=== PATIENT | male | born 1935 | race Caucasian/White ===

== ENCOUNTER 2017-09-20 09:20 | Inpatient (IN) | payer MEDICARE ==
--- NOTE | 2017-09-20 09:52 | EDM.PDOC ---
ED HPI GENERAL MEDICAL PROBLEM - General Chief Complaint: General Stated Complaint: MEDICAL [facility] Time Seen by Provider: 09/20/17 09:35 Source of Information: Reports: Family, Old Records, RN History Limitations: Reports: Other (patient with dementia) - History of Present Illness INITIAL COMMENTS - FREE TEXT/NARRATIVE: 81 [facility] patient who is a resident of a local assisted living facility is sent in today via EMS by his son for weakness and lethargy getting worse over the past week or so. This patient has not complained of anything, but has spent a lot of time sleeping and in bed. EMS noted a BS of about 200 this morning and as of June 2017 [facility] records document normal blood sugars. Other labs including BMP, Hgb, TSH also normal this past June. Specifically denies CP or SOB. Cannot tell me if the R leg swelling is new or not. Onset: Gradual Onset Date: 09/14/17 Duration: Day(s):, Getting Worse Location: Reports: Generalized Quality: Reports: Other (No reported pain.) Severity: Moderate Improves with: Reports: None Worsens with: Reports: Other (? time, cause unknown) Context: Reports: Other (Has dementia, assisted living resident) Associated Symptoms: Reports: Confusion (This is chronic), Malaise, Weakness. Denies: Fever/Chills, Nausea/Vomiting Treatments [employer]: Reports: IV/IO, Other (see below) (none) Other Treatments [employer] PUBL[employer]ING [employer]: GLUCOSE 284 PER EMS - Related Data Allergies Allergy/AdvReac Type Severity Reaction Status Date / Time No Known Allergies Allergy Verified 09/20/17 09:31 Home Meds: Home Meds Aspirin [Adult Low Dose Aspirin EC] 81 mg PO DAILY 06/13/15 [History] Cholecalciferol (Vitamin D3) [Vitamin D3] 2,000 units PO DAILY 06/13/15 [History ] Docusate Sodium/Sennosides [Senna Plus] 1 tab PO BID 06/13/15 [History] Escitalopram [Lexapro] 20 mg PO DAILY 06/13/15 [History] Losartan [Cozaar] 50 mg PO DAILY 06/13/15 [History] Nitroglycerin [Nitrostat] 1 tab PO ASDIRECTED PRN 06/13/15 [History] Omeprazole 20 mg PO DAILY 06/13/15 [History] Psyllium [Metamucil] 1 tab PO DAILY 06/13/15 [History] Simvastatin [Zocor] 40 mg PO BEDTIME 06/13/15 [History] Sodium Chloride [Saline Nasal [place]] 2 spray MARY QID PRN 06/13/15 [History] risperiDONE 0.5 mg PO BEDTIME 06/13/15 [History] Levofloxacin 750 mg PO DAILY #3 tablet 06/15/15 [Rx] Past Medical History HEENT History: Reports: Hard of Hearing Musculoskeletal History: Reports: Back Pain, Chronic Psychiatric History: Reports: Dementia, Depression Dermatologic History: Reports: Other (See Below) Other Dermatologic History: Dry skin - Infectious Disease History Infectious Disease History: Reports: Chicken Pox, Measles, Mumps - Past Surgical History HEENT Surgical History: Reports: Cataract Surgery Social & Family History - Family History Cardiac: Reports: CAD - Tobacco Use Smoking Status *Q: Unknown Ever Smoked Second Hand Smoke Exposure: No - Recreational Drug Use Recreational Drug Use: No ED ROS GENERAL - Review of Systems Review Of Systems: See Below Constitutional: Reports: Malaise, Weakness, Fatigue HEENT: Reports: No Symptoms Respiratory: Reports: Cough (occasional). Denies: Shortness of Breath, Wheezing , Sputum, Hemoptysis Cardiovascular: Reports: No Symptoms Endocrine: Reports: Fatigue GI/Abdominal: Reports: No Symptoms : Reports: No Symptoms Musculoskeletal: Reports: No Symptoms Skin: Reports: No Symptoms Neurological: Reports: Other (dementia, chronic) Psychiatric: Reports: Other (Flat affect here in the ER) ED EXAM, GENERAL - Physical Exam Exam: See Below Exam Limited By: No Limitations General Appearance: Alert, WD/WN, No Apparent Distress Eye Exam: Bilateral Eye: Normal Inspection Ears: Normal External Exam, Normal Canal, Other (Bilateral cerumen impactions) Ear Exam: Bilateral Ear: Auricle Normal, Canal Normal Nose: Normal Inspection, Normal Mucosa, No Blood Throat/Mouth: Normal Inspection, Normal Lips, Normal Oropharynx, Normal Voice, No Airway Compromise Head: Atraumatic, Normocephalic Neck: Normal Inspection Respiratory/Chest: No Respiratory Distress, Lungs Clear, Normal Breath Sounds, No Accessory Muscle Use Cardiovascular: Regular Rate, Rhythm, No Edema Peripheral Pulses: 0: Dorsalis Pedis (L) GI/Abdominal: Normal Bowel Sounds, Soft, Non-Tender, No Distention Extremities: Normal Inspection, Normal Range of Motion, Non-Tender, Pedal Edema (R leg is slightly bigger than the L leg, seems non-tender and is not warmer than the other leg. ) Neurological: Alert, CN II-XII Intact, No Motor/Sensory Deficits, Other (non- verbal during encounter, son did all the talking) Psychiatric: Normal Affect, Normal Mood Skin Exam: Warm, Dry, Normal Color, No Rash, Wound/Incision (deep abrasion noted over the R knee cap, no surrounding erythema.) Lymphatic: No Adenopathy EKG INTERPRETATION EKG Date: 09/20/17 Time: 10:25 Rhythm: NSR Rate (Beats/Min): 80 [place]: Normal P-Wave: Present QRS: Normal QT: Normal Comparison: NA - No Prior EKG EKG Interpretation Comments: LVH noted. No def'n acute ischemia. Course - Vital Signs Last Recorded V/S: Last Vital Signs Temp 36.2 C 09/20/17 12:54 Pulse 77 09/20/17 12:54 Resp 17 09/20/17 12:54 BP 151/73 H 09/20/17 12:54 Pulse Ox 95 09/20/17 12:54 - Orders/Labs/Meds Orders: Active Orders 24 hr Category Date Time Status Cardiac Monitoring [RC] .As Directed Care 09/20/17 10:22 Active EKG Documentation Completion [RC] ASDIRECTED Care 09/20/17 10:23 Active Vaccines to be Administered [RC] PER UNIT ROUTINE Care 09/20/17 10:31 Active Ang Chest [CT] Stat Exams 09/20/17 10:44 Taken Chest 1V Frontal [CR] Stat Exams 09/20/17 10:24 Taken VL Duplex Lwr Ext Veins Ltd Rt [US] Stat Exams 09/20/17 12:05 Ordered UA W/MICROSCOPIC [URIN] Stat Lab 09/20/17 10:12 Ordered Iopamidol [Isovue-370 (76%)] Med 09/20/17 11:00 Active 100 ml IV . DIRECTED Lactated Ringers [Ringers, Lactated] 1,000 ml Med 09/20/17 12:32 Active IV BOLUS EKG 12 Lead [EK] Routine Ther 09/20/17 10:22 Ordered Medication Orders Lactated Ringer's (Ringers, Lactated) 1,000 mls @ 1,000 mls/hr IV BOLUS ONE Stop: 09/20/17 13:31 Last Admin: 09/20/17 12:40 Dose: 1,000 mls/hr Iopamidol (Isovue-370 (76%)) 100 ml IV . DIRECTED BONITA Stop: 09/20/17 16:00 Last Admin: 09/20/17 11:29 Dose: 100 ml Labs: Laboratory Tests 09/20/17 09/20/17 09/20/17 Range/Units 09:54 09:54 10:11 WBC 16.7 H (4.5-11.0) K/uL RBC 4.97 (4.30-5.90) M/uL Hgb 13.7 (12.0-15.0) g/dL Hct 40.9 (40.0-54.0) % MCV 82 (80-98) fL MCH 28 (27-31) pg MCHC 34 (32-36) % Plt Count 215 (150-400) K/uL D-Dimer, Quantitative 1200 H (0.0-400.0) ng/mL Sodium 138 L (140-148) mmol/L Potassium 4.9 (3.6-5.2) mmol/L Chloride 102 (100-108) mmol/L Carbon Dioxide 26 (21-32) mmol/L Anion Gap 14.9 H (5.0-14.0) mmol/L BUN 24 H D (7-18) mg/dL Creatinine 1.3 (0.8-1.3) mg/dL Est Cr Clr Drug Dosing 45.86 mL/min Estimated GFR (MDRD) 53 L (>60) Glucose 200 H (74-106) mg/dL Calcium 8.9 (8.5-10.1) mg/dL Troponin I 0.151 H* (0.000-0.056) ng/mL Urine Color Urine Appearance Urine pH (4.5-8.0) Ur Specific [place] (1.008-1.030) Urine Protein (NEGATIVE) mg/dL Urine Glucose (UA) (NEGATIVE) mg/dL Urine Ketones (NEGATIVE) mg/dL Urine Occult Blood (NEGATIVE) Urine Nitrite (NEGAITVE) Urine Bilirubin (NEGATIVE) Urine Urobilinogen (NORMAL) mg/dL Ur Leukocyte Esterase (NEGATIVE) Urine RBC (0-5) Urine WBC (0-5) Ur Epithelial Cells Amorphous Sediment Urine Bacteria Urine Mucus 09/20/17 Range/Units 10:12 WBC (4.5-11.0) K/uL RBC (4.30-5.90) M/uL Hgb (12.0-15.0) g/dL Hct (40.0-54.0) % MCV (80-98) fL MCH (27-31) pg MCHC (32-36) % Plt Count (150-400) K/uL D-Dimer, Quantitative (0.0-400.0) ng/mL Sodium (140-148) mmol/L Potassium (3.6-5.2) mmol/L Chloride (100-108) mmol/L Carbon Dioxide (21-32) mmol/L Anion Gap (5.0-14.0) mmol/L BUN (7-18) mg/dL Creatinine (0.8-1.3) mg/dL Est Cr Clr Drug Dosing mL/min Estimated GFR (MDRD) (>60) Glucose (74-106) mg/dL Calcium (8.5-10.1) mg/dL Troponin I (0.000-0.056) ng/mL Urine Color Brown Urine Appearance Cloudy Urine pH 5.0 (4.5-8.0) Ur Specific [place] 1.025 (1.008-1.030) Urine Protein 30 H (NEGATIVE) mg/dL Urine Glucose (UA) 50 H (NEGATIVE) mg/dL Urine Ketones 50 H (NEGATIVE) mg/dL Urine Occult Blood Large (NEGATIVE) Urine Nitrite Negative (NEGAITVE) Urine Bilirubin Small (NEGATIVE) Urine Urobilinogen 1 (NORMAL) mg/dL Ur Leukocyte Esterase Small (NEGATIVE) Urine RBC 0-5 (0-5) Urine WBC 0-5 (0-5) Ur Epithelial Cells Few Amorphous Sediment Moderate Urine Bacteria Moderate Urine Mucus Many Meds: Medications Generic Name Dose Route Start Last Admin Trade Name Freq PRN Reason Stop Dose Admin Lactated Ringer's 1,000 mls @ 1,000 mls/hr 09/20/17 12:32 09/20/17 12:40 Ringers, Lactated IV 09/20/17 13:31 1,000 mls/hr BOLUS ONE Administration Iopamidol 100 ml 09/20/17 11:00 09/20/17 11:29 Isovue-370 (76%) IV 09/20/17 16:00 100 ml . DIRECTED BONITA Administration Discontinued Medications Generic Name Dose Route Start Last Admin Trade Name Pau PRN Reason Stop Dose Admin Aspirin 243 mg 09/20/17 10:23 09/20/17 10:30 Aspirin PO 09/20/17 10:24 243 mg ONETIME ONE Administration Diphtheria/Tetanus/Acell Pertussis 0.5 ml 09/20/17 10:31 09/20/17 10:47 Adacel IM 09/20/17 10:32 0.5 ml .ONCE ONE Administration Lactated Ringer's 1,000 mls @ 1,000 mls/hr 09/20/17 10:12 09/20/17 10:27 Ringers, Lactated IV 09/20/17 11:11 1,000 mls/hr BOLUS ONE Administration Sodium Chloride 80 mls @ 3.5 mls/sec 09/20/17 10:49 09/20/17 11:29 Normal Saline IV 09/20/17 10:50 4 mls/sec ONETIME ONE Administration Sodium Chloride 10 ml 09/20/17 10:49 09/20/17 11:29 Saline Flush FLUSH 09/20/17 10:50 10 ml ONETIME ONE Administration - Radiology Interpretation Free Text/Narrative:: CXR-negative, no failure noted. CT chest PE study-neg venous doppler of R leg-negative for DVT CT Results Date: 09/20/17 CT Results Time: 11:30 Departure - Departure Time of Disposition: 13:40 Disposition: Admitted As Inpatient 64 Condition: Fair Clinical Impression: Recent heart attack, Mild dehydration, Weakness, Elevated blood sugar Dementia Qualifiers: Dementia type: Alzheimer's disease Alzheimer's disease onset: late-onset Dementia behavioral disturbance: without behavioral disturbance Qualified Code(s ): G30.1 - Alzheimer's disease with late onset - Discharge Information Referrals: PCP,None [Primary Care Provider] - Forms: ED Department Discharge - My Orders Last 24 Hours: My Active Orders 09/20/17 10:12 UA W/MICROSCOPIC [URIN] Stat 09/20/17 10:22 Cardiac Monitoring [RC] .As Directed EKG 12 Lead [EK] Routine 09/20/17 10:23 EKG Documentation Completion [RC] ASDIRECTED 09/20/17 10:24 Chest 1V Frontal [CR] Stat 09/20/17 10:31 Vaccines to be Administered [RC] PER UNIT ROUTINE 09/20/17 10:44 Ang Chest [CT] Stat 09/20/17 11:00 Iopamidol [Isovue-370 (76%)] 100 ml IV . DIRECTED 09/20/17 12:05 Duplex Lwr Ext Veins Ltd Rt [US] Stat 09/20/17 12:32 Lactated Ringers [Ringers, Lactated] 1,000 ml IV BOLUS - Assessment/Plan Last 24 Hours: My Active Orders 09/20/17 10:12 UA W/MICROSCOPIC [URIN] Stat 09/20/17 10:22 Cardiac Monitoring [RC] .As Directed EKG 12 Lead [EK] Routine 09/20/17 10:23 EKG Documentation Completion [RC] ASDIRECTED 09/20/17 10:24 Chest 1V Frontal [CR] Stat 09/20/17 10:31 Vaccines to be Administered [RC] PER UNIT ROUTINE 09/20/17 10:44 Ang Chest [CT] Stat 09/20/17 11:00 Iopamidol [Isovue-370 (76%)] 100 ml IV . DIRECTED 09/20/17 12:05 Duplex Lwr Ext Veins Ltd Rt [US] Stat 09/20/17 12:32 Lactated Ringers [Ringers, Lactated] 1,000 ml IV BOLUS
[2017-09-20] MEDS ORDERED: Lactated Ringers 1,000 ML IV ONE ×2 (10:12→12:32)
[2017-09-20] MEDS ORDERED: Aspirin 81 MG Tab.Chew PO ONE (10:23)
[2017-09-20] MEDS ORDERED: Diphtheria,Pertussis(Acell),Tetanus Vaccine 0.5 ML SDV IM ONE (10:31)
[2017-09-20] MEDS ORDERED: Sodium Chloride 0.9% 10 ML Syringe FLUSH ONE (10:49)
[2017-09-20] MEDS ORDERED: Sodium Chloride 0.9% 80 ML IV ONE (10:49)
[2017-09-20] MEDS ORDERED: Iopamidol 755 Mg/ML 100 ML Bottle IV SCH (11:00)
--- NOTE | 2017-09-20 14:24 | PCM.HP ---
H&P History of Present Illness - General Date of Service: 09/20/17 Admit Problem/Dx: Admission Diagnosis/Problem Admission Diagnosis/Problem Elevated troponin I level Source of Information: Patient, Family, Provider History Limitations: Reports: Altered Mental Status (dementia) - History of Present Illness Initial Comments - Free Text/Narative: Jared presents to the ER after being found on the floor of his assisted living apartment. He has dementia and history is somewhat difficult to gather so history was gathered from his son as well as emergency room personnel. Jared reports that he currently feels fine and offers no concerns. He does not have chest pain and does not feel shortness of breath. No complaints of abdominal pain. He doesn't think he's had any fevers recently. His son reports that he and other caregivers have noticed that he the patient has been more sleepy than usual over the past several days. They have not noted anything out of the ordinary other than him being sleepy. He has not offered specific complaints to them recently and they have noticed that he seems to be having increased urine output with more wet incontinence pads. They haven't noticed change in color or odor of the urine. He is not on new medications. There are no obvious sick contacts. This morning he was found laying on the floor next to his bed area and he has no idea how he got there or how long he's been there. Workup in the emergency room revealed an elevated troponin and an elevated d- dimer. CT pulmonary angiogram did not show evidence for pulmonary embolism and lower extremity ultrasound was negative. Urine mildly suggestive of infection. The patient appears dehydrated. He will be admitted for additional workup and management. - Related Data Allergies/Adverse Reactions: Allergies Allergy/AdvReac Type Severity Reaction Status Date / Time No Known Allergies Allergy Verified 09/20/17 09:31 Home Medications: Home Meds Aspirin [Adult Low Dose Aspirin EC] 81 mg PO DAILY 06/13/15 [History] Cholecalciferol (Vitamin D3) [Vitamin D3] 1,000 units PO DAILY 06/13/15 [History ] Docusate Sodium/Sennosides [Senna Plus] 1 tab PO BID 06/13/15 [History] Escitalopram [Lexapro] 20 mg PO DAILY 06/13/15 [History] Losartan [Cozaar] 50 mg PO DAILY 06/13/15 [History] Nitroglycerin [Nitrostat] 1 tab PO ASDIRECTED PRN 06/13/15 [History] Omeprazole 20 mg PO DAILY 06/13/15 [History] Simvastatin [Zocor] 40 mg PO BEDTIME 06/13/15 [History] risperiDONE 0.5 mg PO BEDTIME 06/13/15 [History] Acetaminophen [Tylenol] 2 tab PO ASDIRECTED PRN 09/20/17 [History] Acetaminophen/Codeine [Tylenol with Codeine No.3 300MG/30MG] 1 tab PO ASDIRECTED PRN 09/20/17 [History] Furosemide 20 mg PO DAILY 09/20/17 [History] Memantine [Namenda] 5 mg PO BID 09/20/17 [History] Past Medical History HEENT History: Reports: Hard of Hearing Musculoskeletal History: Reports: Back Pain, Chronic Psychiatric History: Reports: Dementia, Depression Dermatologic History: Reports: Other (See Below) Other Dermatologic History: Dry skin - Infectious Disease History Infectious Disease History: Reports: Chicken Pox, Measles, Mumps - Past Surgical History HEENT Surgical History: Reports: Cataract Surgery Social & Family History - Family History Cardiac: Reports: CAD - Tobacco Use Smoking Status *Q: Unknown Ever Smoked Second Hand Smoke Exposure: No - Alcohol Use Alcohol Use History: No - Recreational Drug Use Recreational Drug Use: No H&P Review of Systems - Review of Systems: Review Of Systems: See Below Free Text/Narrative: A complete 12 point review of systems was obtained. Pertinent positives and negatives are noted in the history of present illness. All other systems were reviewed and were negative except as noted. Reliability of the review of systems is somewhat questionable given his dementia but all systems were covered. Exam - Exam Exam: See Below - Vital Signs Vital Signs: Last Vital Signs Temp 36.2 C 09/20/17 12:54 Pulse 77 09/20/17 12:54 Resp 17 09/20/17 12:54 BP 151/73 H 09/20/17 12:54 Pulse Ox 95 09/20/17 12:54 Weight: 115.666 kg - Exam Quality Assessment: No: Supplemental Oxygen General: Alert, Oriented, Cooperative. No: Mild Distress HEENT: Conjunctiva Clear. No: Mucosa Moist & [place] (dry), Scleral Icterus Neck: Supple, Trachea Midline. No: Lymphadenopathy Lungs: Clear to Auscultation, Normal Respiratory Effort Cardiovascular: Regular Rate, Regular Rhythm, Systolic Murmur GI/Abdominal Exam: Normal Bowel Sounds, Soft, Non-Tender, No Distention Extremities: Pedal Edema (Mild bilateral ankle edema, right greater than left). No: Increased Warmth Skin: Warm, Dry Neuro Extensive - Mental Status: Alert, Nl Response to Commands. No: Oriented x3 Neuro Extensive - Motor, Sensory, Reflexes: CN II-XII Intact. No: Dysarthria, Abnormal Motor, Tremor Psychiatric: Alert, Normal Affect - Patient Data Lab Results Last 24 hrs: Laboratory Results - last 24 hr 09/20/17 09/20/17 09/20/17 Range/Units 09:54 09:54 10:11 WBC 16.7 H (4.5-11.0) K/uL RBC 4.97 (4.30-5.90) M/uL Hgb 13.7 (12.0-15.0) g/dL Hct 40.9 (40.0-54.0) % MCV 82 (80-98) fL MCH 28 (27-31) pg MCHC 34 (32-36) % Plt Count 215 (150-400) K/uL D-Dimer, Quantitative 1200 H (0.0-400.0) ng/mL Sodium 138 L (140-148) mmol/L Potassium 4.9 (3.6-5.2) mmol/L Chloride 102 (100-108) mmol/L Carbon Dioxide 26 (21-32) mmol/L Anion Gap 14.9 H (5.0-14.0) mmol/L BUN 24 H D (7-18) mg/dL Creatinine 1.3 (0.8-1.3) mg/dL Est Cr Clr Drug Dosing 45.86 mL/min Estimated GFR (MDRD) 53 L (>60) Glucose 200 H (74-106) mg/dL Calcium 8.9 (8.5-10.1) mg/dL Troponin I 0.151 H* (0.000-0.056) ng/mL Urine Color Urine Appearance Urine pH (4.5-8.0) Ur Specific [place] (1.008-1.030) Urine Protein (NEGATIVE) mg/dL Urine Glucose (UA) (NEGATIVE) mg/dL Urine Ketones (NEGATIVE) mg/dL Urine Occult Blood (NEGATIVE) Urine Nitrite (NEGAITVE) Urine Bilirubin (NEGATIVE) Urine Urobilinogen (NORMAL) mg/dL Ur Leukocyte Esterase (NEGATIVE) Urine RBC (0-5) Urine WBC (0-5) Ur Epithelial Cells Amorphous Sediment Urine Bacteria Urine Mucus 09/20/17 Range/Units 10:12 WBC (4.5-11.0) K/uL RBC (4.30-5.90) M/uL Hgb (12.0-15.0) g/dL Hct (40.0-54.0) % MCV (80-98) fL MCH (27-31) pg MCHC (32-36) % Plt Count (150-400) K/uL D-Dimer, Quantitative (0.0-400.0) ng/mL Sodium (140-148) mmol/L Potassium (3.6-5.2) mmol/L Chloride (100-108) mmol/L Carbon Dioxide (21-32) mmol/L Anion Gap (5.0-14.0) mmol/L BUN (7-18) mg/dL Creatinine (0.8-1.3) mg/dL Est Cr Clr Drug Dosing mL/min Estimated GFR (MDRD) (>60) Glucose (74-106) mg/dL Calcium (8.5-10.1) mg/dL Troponin I (0.000-0.056) ng/mL Urine Color Brown Urine Appearance Cloudy Urine pH 5.0 (4.5-8.0) Ur Specific [place] 1.025 (1.008-1.030) Urine Protein 30 H (NEGATIVE) mg/dL Urine Glucose (UA) 50 H (NEGATIVE) mg/dL Urine Ketones 50 H (NEGATIVE) mg/dL Urine Occult Blood Large (NEGATIVE) Urine Nitrite Negative (NEGAITVE) Urine Bilirubin Small (NEGATIVE) Urine Urobilinogen 1 (NORMAL) mg/dL Ur Leukocyte Esterase Small (NEGATIVE) Urine RBC 0-5 (0-5) Urine WBC 0-5 (0-5) Ur Epithelial Cells Few Amorphous Sediment Moderate Urine Bacteria Moderate Urine Mucus Many Result Diagrams: 09/20/17 09:54 09/20/17 09:54 Imaging Impressions Last 24 hrs: Chest x-ray - images personally reviewed - there is no evidence for mass, infiltrate or effusion. Heart size is normal. CT pulmonary angiogram - images also personally reviewed - no evidence for pulmonary embolism, effusion, mass or abnormality. EKG INTERPRETATION EKG Date: 09/20/17 Rhythm: NSR Rate (Beats/Min): 80 [place]: Normal P-Wave: Present QRS: Normal ST-T: Normal QT: Normal *Q Meaningful Use (ADM) - VTE Risk Assess *Q Each Risk Factor Represents 1 Point: Swollen Legs, Current, Obesity ( BMI > 25 kg/m2) Total Score 1 Point Risk Factors: 2 Each Risk Factor Represents 2 Points: None Total Score 2 Point Risk Factors: 0 Each Risk Factor Represents 3 Points: Age 75 Years or Greater Total Score 3 Point Risk Factors: 3 Each Risk Factor Represents 5 Points: None Total Score 5 Point Risk Factors: 0 Venous Thromboembolism Risk Factor Score *Q: 5 - Problem List (1) Elevated troponin SNOMED Code(s): 291832302, 278257504, 603849621 ICD Code: R74.8 - ABNORMAL LEVELS OF OTHER SERUM ENZYMES Status: Acute Current Visit: Yes (2) Fall SNOMED Code(s): 7644229, 524627655 ICD Code: W19.XXXA - UNSPECIFIED FALL, INITIAL ENCOUNTER Status: Acute Current Visit: No Qualifiers: Encounter type: initial encounter Qualified Code(s): W19.XXXA - Unspecified fall, initial encounter (3) Elevated blood sugar SNOMED Code(s): 21172120 ICD Code: R73.9 - HYPERGLYCEMIA, UNSPECIFIED Status: Acute Current Visit : Yes (4) Dementia SNOMED Code(s): 54874101 ICD Code: F03.90 - UNSPECIFIED DEMENTIA WITHOUT BEHAVIORAL DISTURBANCE Status: Chronic Current Visit: Yes Qualifiers: Dementia type: Alzheimer's disease Alzheimer's disease onset: late-onset Dementia behavioral disturbance: without behavioral disturbance Qualified Code (s): G30.1 - Alzheimer's disease with late onset; F02.80 - Dementia in other diseases classified elsewhere without behavioral disturbance Problem List Initiated/Reviewed/Updated: Yes Orders Last 24hrs: Active Orders 24 hr Category Date Time Status Patient Status Manage Transfer [TRANSFER] Routine ADT 09/20/17 14:11 Ordered Cardiac Monitoring [RC] .As Directed Care 09/20/17 10:22 Active EKG Documentation Completion [RC] ASDIRECTED Care 09/20/17 10:23 Active Vaccines to be Administered [RC] PER UNIT ROUTINE Care 09/20/17 10:31 Active Ang Chest [CT] Stat Exams 09/20/17 10:44 Taken Chest 1V Frontal [CR] Stat Exams 09/20/17 10:24 Taken VL Duplex Lwr Ext Veins Ltd Rt [US] Stat Exams 09/20/17 12:05 Taken CREATINE KINASE,CK [CHEM] Urgent Lab 09/20/17 14:11 Ordered CULTURE URINE [RM] Routine Lab 09/20/17 13:41 Received UA W/MICROSCOPIC [URIN] Stat Lab 09/20/17 10:12 Ordered Iopamidol [Isovue-370 (76%)] Med 09/20/17 11:00 Active 100 ml IV . DIRECTED Resuscitation Status Routine Resus Stat 09/20/17 14:14 Ordered EKG 12 Lead [EK] Routine Ther 09/20/17 10:22 Ordered Medication Orders Iopamidol (Isovue-370 (76%)) 100 ml IV . DIRECTED BONITA Stop: 09/20/17 16:00 Last Admin: 09/20/17 11:29 Dose: 100 ml Assessment/Plan Comment:: ASSESSMENT AND PLAN - Fall with generalized weakness - etiology not entirely clear at this point. With the elevated troponin and he may have had a recent myocardial infarction but EKG does not confirm this. Urinary tract infection with dehydration could be contributing. Seems to be perking up with fluids. Vitals are stable. -IV fluids overnight -Fall precautions -Reassess mobility and strength in the morning Elevated troponin - Mild elevation at this time with EKG not suggestive of ischemia. Unclear if this is demand ischemia or if the troponin is trending up or down. Patient is vitally stable. He did receive aspirin in the emergency room. -Serial troponin levels -Cardiac monitoring -Continue aspirin Hyperglycemia - Moderate elevation of blood sugars noted today. Likely result of acute issue which could either be a urinary tract infection or possibly myocardial infarction. No history of diabetes. -Accu-Cheks -Low-dose sliding scale Alzheimer's dementia without behavioral disturbance - Stable and comfortable at this time. No behavior issues reported. -Continue home medications Maintenance issues - - DVT prophylaxis - mechanical - GI prophylaxis - PPI - Nutrition - regular diet - Blanca catheter - not indicated CODE STATUS - DNR/DNI Admission justification - This patient will be admitted for inpatient services and is medically appropriate meeting medical necessity for inpatient admission as outlined in my documentation. I reasonably expect the patient will require inpatient services that span a period time over 2 midnights. I reasonably expect this patient to be discharged or transferred within 96 hours [facility]. Disposition - anticipate discharge back to assisted living after the hospital stay Primary care physician - [place] JOSE Zepeda M.D.
[2017-09-20] MEDS ORDERED: Bisacodyl 5 MG Tab PO PRN (14:56)
[2017-09-20] MEDS ORDERED: Acetaminophen/Codeine 300-30 MG Tab PO PRN (14:56)
[2017-09-20] MEDS ORDERED: Acetaminophen 325 MG Tab PO PRN (14:56)
[2017-09-20] MEDS ORDERED: Polyethylene Glycol 3350 Powder 17 GM Packet PO PRN (14:56)
[2017-09-20] MEDS ORDERED: Ondansetron 4 MG Tab.DIS PO PRN (14:56)
[2017-09-20] MEDS: Sodium Chloride 0.9% 1,000 ML IV SCH (15:32)
[2017-09-20] MEDS: cefTRIAXone 1 GM in Sodium Chloride 0.9% 50 ML IV SCH (15:44)
[2017-09-20] MEDS ORDERED: Sodium Chloride 0.9% 500 ML IV SCH (16:00)
[2017-09-20] MEDS: Insulin Aspart 100 Units/ML 3 ML Pen SUBCUT SCH ×2 (17:42→21:12)
[2017-09-20] MEDS: Melatonin 3 MG Tab PO SCH (20:42)
[2017-09-20] MEDS: risperiDONE 0.25 MG Tab PO SCH (20:42)
[2017-09-20] MEDS: Simvastatin 20 MG Tab PO SCH (20:42)
[2017-09-20] MEDS: Memantine 10 MG Tab PO SCH (20:42)
[2017-09-20] MEDS ORDERED: Non-Formulary Medication 1 Each (Simvastatin [Zocor] 40 MG) PO SCH (21:00)
[2017-09-20] MEDS ORDERED: risperiDONE 0.5 MG Tab PO SCH (21:00)
[2017-09-20] MEDS ORDERED: MEMANTINE 5 MG PO SCH (21:00)
[2017-09-21] MEDS: Sodium Chloride 0.9% 1,000 ML IV SCH ×3 (00:11→19:25)
[2017-09-21] MEDS ORDERED: Sodium Chloride 0.9% 500 ML IV SCH (08:00)
[2017-09-21] MEDS: Escitalopram 20 MG Tab PO SCH (08:57)
[2017-09-21] MEDS: Pantoprazole 40 MG Tab.CR PO SCH (08:57)
[2017-09-21] MEDS: Losartan 50 MG Tab PO SCH (08:57)
[2017-09-21] MEDS: Aspirin 81 MG Tab.EC PO SCH (08:57)
[2017-09-21] MEDS: Memantine 10 MG Tab PO SCH ×2 (08:58→20:11)
[2017-09-21] MEDS: Insulin Aspart 100 Units/ML 3 ML Pen SUBCUT SCH ×4 (08:58→21:13)
[2017-09-21] MEDS: Furosemide 20 MG Tab PO SCH (08:58)
[2017-09-21] MEDS ORDERED: Non-Formulary Medication 1 Each (Losartan [Cozaar] 50 MG) PO SCH (09:00)
--- NOTE | 2017-09-21 10:58 | PCM.PN ---
- General Info Date of Service: 09/21/17 Functional Status: Reports: Pain Controlled, Tolerating Diet - Review of Systems General: Reports: Weakness. Denies: Fever Systems Review Comment:: No acute events overnight. Troponin level did rise slightly and is now trending down. Patient has been stable. He is more alert today. Appetite is improving. He does require the assist of 2 people at this time. He has not complained of any chest pain. He does have some back pain and has a bruise on his back and this is likely the location of his rhabdomyolysis. - Patient Data Vitals - Most Recent: Last Vital Signs Temp 36.9 C 09/21/17 07:00 Pulse 63 09/21/17 07:00 Resp 18 09/21/17 07:00 BP 143/59 H 09/21/17 08:57 Pulse Ox 96 09/21/17 07:00 Weight - Most Recent: 115.666 kg I&O - Last 24 Hours: Intake & Output 09/20/17 09/21/17 09/21/17 22:59 06:59 14:59 Intake Total 820 1768 Output Total 125 300 Balance 695 1468 Lab Results Last 24 Hours: Laboratory Results - last 24 hr 09/20/17 09/20/17 09/20/17 Range/Units 14:11 15:00 21:04 WBC (4.5-11.0) K/uL RBC (4.30-5.90) M/uL Hgb (12.0-15.0) g/dL Hct (40.0-54.0) % MCV (80-98) fL MCH (27-31) pg MCHC (32-36) % Plt Count (150-400) K/uL Sodium (140-148) mmol/L Potassium (3.6-5.2) mmol/L Chloride (100-108) mmol/L Carbon Dioxide (21-32) mmol/L Anion Gap (5.0-14.0) mmol/L BUN (7-18) mg/dL Creatinine (0.8-1.3) mg/dL Est Cr Clr Drug Dosing mL/min Estimated GFR (MDRD) (>60) Glucose (74-106) mg/dL Calcium (8.5-10.1) mg/dL Creatine Kinase 3703 H (39-308) U/L Troponin I 0.380 H* 0.436 H* (0.000-0.056) ng/mL 09/21/17 09/21/17 Range/Units 05:30 05:30 WBC 11.9 H (4.5-11.0) K/uL RBC 4.34 (4.30-5.90) M/uL Hgb 12.0 (12.0-15.0) g/dL Hct 36.9 L (40.0-54.0) % MCV 85 (80-98) fL MCH 28 (27-31) pg MCHC 33 (32-36) % Plt Count 177 (150-400) K/uL Sodium 141 (140-148) mmol/L Potassium 4.1 (3.6-5.2) mmol/L Chloride 108 (100-108) mmol/L Carbon Dioxide 27 (21-32) mmol/L Anion Gap 6.3 (5.0-14.0) mmol/L BUN 19 H (7-18) mg/dL Creatinine 1.1 (0.8-1.3) mg/dL Est Cr Clr Drug Dosing 54.19 mL/min Estimated GFR (MDRD) > 60 (>60) Glucose 120 H (74-106) mg/dL Calcium 7.9 L (8.5-10.1) mg/dL Creatine Kinase 25508 H (39-308) U/L Troponin I 0.306 H* (0.000-0.056) ng/mL Med Orders - Current: Current Medications Acetaminophen (Tylenol) 650 mg PO Q4H PRN PRN Reason: Pain/Fever Last Admin: 09/20/17 20:41 Dose: 650 mg Acetaminophen/Codeine Phosphate (Tylenol With Codeine No.3 300mg/30mg) 1 tab PO Q4H PRN PRN Reason: Pain Aspirin (Halfprin) 81 mg PO DAILY [facility] Last Admin: 09/21/17 08:57 Dose: 81 mg Bisacodyl (Dulcolax) 5 mg PO DAILY PRN PRN Reason: Constipation Escitalopram Oxalate (Lexapro) 20 mg PO DAILY [facility] Last Admin: 09/21/17 08:57 Dose: 20 mg Furosemide (Lasix) 20 mg PO DAILY [facility] Last Admin: 09/21/17 08:58 Dose: 20 mg Ceftriaxone Sodium 1 gm/ (Sodium Chloride) 50 mls @ 100 mls/hr IV Q24H [facility] Last Admin: 09/20/17 15:44 Dose: 100 mls/hr Sodium Chloride (Normal Saline) 1,000 mls @ 150 mls/hr IV ASDIRECTED [facility] Last Admin: 09/21/17 08:11 Dose: 150 mls/hr Insulin Aspart (Novolog) 0 unit SUBCUT QIDACANDBED [facility]; Protocol Last Admin: 09/21/17 08:58 Dose: Not Given Losartan Potassium (Cozaar) 50 mg PO DAILY [facility] Last Admin: 09/21/17 08:57 Dose: 50 mg Melatonin (Melatonin) 9 mg PO BEDTIME [facility] Last Admin: 09/20/17 20:42 Dose: 9 mg Memantine (Namenda) 5 mg PO BID [facility] Last Admin: 09/21/17 08:58 Dose: 5 mg Ondansetron HCl (Zofran Odt) 4 mg PO Q6H PRN PRN Reason: Nausea able to take PO Pantoprazole Sodium (Protonix) 40 mg PO ACBREAKFAST [facility] Last Admin: 09/21/17 08:57 Dose: 40 mg Polyethylene Glycol (Miralax) 17 gm PO DAILY PRN PRN Reason: Constipation Risperidone (Risperidal) 0.5 mg PO BEDTIME [facility] Last Admin: 09/20/17 20:42 Dose: 0.5 mg Senna/Docusate Sodium (Senna Plus) 1 tab PO BID [facility] Last Admin: 09/21/17 08:59 Dose: 1 tab Simvastatin (Zocor) 40 mg PO BEDTIME [facility] Last Admin: 09/20/17 20:42 Dose: 40 mg Discontinued Medications Aspirin (Aspirin) 243 mg PO ONETIME ONE Stop: 09/20/17 10:24 Last Admin: 09/20/17 10:30 Dose: 243 mg Diphtheria/Tetanus/Acell Pertussis (Adacel) 0.5 ml IM .ONCE ONE Stop: 09/20/17 10:32 Last Admin: 09/20/17 10:47 Dose: 0.5 ml Lactated Ringer's (Ringers, Lactated) 1,000 mls @ 1,000 mls/hr IV BOLUS ONE Stop: 09/20/17 11:11 Last Admin: 09/20/17 10:27 Dose: 1,000 mls/hr Sodium Chloride (Normal Saline) 80 mls @ 3.5 mls/sec IV ONETIME ONE Stop: 09/20/17 10:50 Last Admin: 09/20/17 11:29 Dose: 4 mls/sec Lactated Ringer's (Ringers, Lactated) 1,000 mls @ 1,000 mls/hr IV BOLUS ONE Stop: 09/20/17 13:31 Last Admin: 09/20/17 12:40 Dose: 1,000 mls/hr Sodium Chloride (Normal Saline) 1,000 mls @ 125 mls/hr IV ASDIRECTED [facility] Last Admin: 09/21/17 00:11 Dose: 125 mls/hr Sodium Chloride (Normal Saline) 500 mls @ 500 mls/hr IV ASDIRECTED [facility] Stop: 09/20/17 17:01 Last Admin: 09/20/17 16:22 Dose: 500 mls/hr Sodium Chloride (Normal Saline) 500 mls @ 500 mls/hr IV ASDIRECTED [facility] Stop: 09/21/17 09:01 Last Admin: 09/21/17 08:13 Dose: 500 mls/hr Iopamidol (Isovue-370 (76%)) 100 ml IV . DIRECTED [facility] Stop: 09/20/17 16:00 Last Admin: 09/20/17 11:29 Dose: 100 ml Risperidone (Risperidal) 0.5 mg PO BEDTIME [facility] Sodium Chloride (Saline Flush) 10 ml FLUSH ONETIME ONE Stop: 09/20/17 10:50 Last Admin: 09/20/17 11:29 Dose: 10 ml - Exam Quality Assessment: No: Supplemental Oxygen General: Alert, Cooperative, No Acute Distress. No: Oriented Neck: Supple Lungs: Clear to Auscultation, Normal Respiratory Effort Cardiovascular: Regular Rate, Regular Rhythm GI/Abdominal Exam: Soft, No Distention Back Exam: Other (tender in mid back over area of bruising) Extremities: No Pedal Edema Skin: Warm, Dry, Ecchymosis (mid back ) Psy/Mental Status: Alert, Normal Affect - Problem List & Annotations (1) Elevated troponin SNOMED Code(s): 699558298, 300561856, 859989072 Code(s): R74.8 - ABNORMAL LEVELS OF OTHER SERUM ENZYMES Status: Acute Current Visit: Yes (2) Fall SNOMED Code(s): 0376878, 542766450 Code(s): W19.XXXA - UNSPECIFIED FALL, INITIAL ENCOUNTER Status: Acute Current Visit: No Qualifiers: Encounter type: initial encounter Qualified Code(s): W19.XXXA - Unspecified fall, initial encounter (3) Elevated blood sugar SNOMED Code(s): 93300036 Code(s): R73.9 - HYPERGLYCEMIA, UNSPECIFIED Status: Acute Current Visit: Yes (4) Dementia SNOMED Code(s): 11113221 Code(s): F03.90 - UNSPECIFIED DEMENTIA WITHOUT BEHAVIORAL DISTURBANCE Status: Chronic Current Visit: Yes Qualifiers: Dementia type: Alzheimer's disease Alzheimer's disease onset: late-onset Dementia behavioral disturbance: without behavioral disturbance Qualified Code (s): G30.1 - Alzheimer's disease with late onset; F02.80 - Dementia in other diseases classified elsewhere without behavioral disturbance - Problem List Review Problem List Initiated/Reviewed/Updated: Yes - My Orders Last 24 Hours: My Active Orders 09/20/17 13:41 CULTURE URINE [RM] Routine 09/20/17 14:14 Resuscitation Status Routine 09/20/17 14:56 Patient Status [ADT] Routine Communication Order [RC] PRN Communication Order [RC] PRN Diabetes Education [RC] Click to Edit Intake and Output [RC] QSHIFT Notify Provider Vital Signs [RC] ASDIRECTED Notify Provider [RC] PRN Oxygen Therapy [RC] PRN Up With Assistance [RC] ASDIRECTED VTE/DVT Education [RC] Per Unit Routine Vital Signs [RC] Q4H Acetaminophen [Tylenol] 650 mg PO Q4H PRN Acetaminophen/Codeine [Tylenol with Codeine No.3 300MG/30MG] 1 tab PO Q4H PRN Bisacodyl [Dulcolax] 5 mg PO DAILY PRN Ondansetron [Zofran ODT] 4 mg PO Q6H PRN Polyethylene Glycol 3350 [MiraLAX] 17 gm PO DAILY PRN Sequential Compression Device [OM.PC] Per Unit Routine 09/20/17 15:30 cefTRIAXone [Rocephin] 1 gm Sodium Chloride 0.9% [Normal Saline] 50 ml IV Q24H 09/20/17 15:31 Assess Discharge Needs [OM.PC] Routine PT Screening [OM.PC] Routine 09/20/17 17:00 Insulin Aspart [NovoLOG] See Protocol SUBCUT QIDACANDBED 09/20/17 21:00 Docusate Sodium/Sennosides [Senna Plus] 1 tab PO BID Melatonin 9 mg PO BEDTIME Memantine [Namenda] 5 mg PO BID Simvastatin [Zocor] 40 mg PO BEDTIME risperiDONE [RisperiDAL] 0.5 mg PO BEDTIME 09/20/17 Dinner Regular Diet [DIET] 09/21/17 07:30 Pantoprazole [ProTONIX] 40 mg PO ACBREAKFAST 09/21/17 09:00 Aspirin [Halfprin] 81 mg PO DAILY Escitalopram [Lexapro] 20 mg PO DAILY Furosemide [Lasix] 20 mg PO DAILY Losartan [Cozaar] 50 mg PO DAILY Sodium Chloride 0.9% [Normal Saline] 1,000 ml IV ASDIRECTED 09/21/17 10:57 Discontinue Telemetry Monitoring [Cardiac Monitoring Discontinue] [RC] Click to Edit 09/21/17 11:30 GLUCOSE POC LAB TO COLLECT [POC] QIDACANDBED 09/21/17 16:00 CREATINE KINASE,CK [CHEM] Routine 09/21/17 16:30 GLUCOSE POC LAB TO COLLECT [POC] QIDACANDBED 09/21/17 21:00 GLUCOSE POC LAB TO COLLECT [POC] QIDACANDBED 09/22/17 05:00 BASIC METABOLIC PANEL,BMP [CHEM] Timed CBC W/O DIFF,HEMOGRAM [HEME] Timed (1) CREATINE KINASE,CK [CHEM] Timed 09/22/17 07:30 GLUCOSE POC LAB TO COLLECT [POC] QIDACANDBED 09/22/17 11:30 GLUCOSE POC LAB TO COLLECT [POC] QIDACANDBED 09/22/17 16:30 GLUCOSE POC LAB TO COLLECT [POC] QIDACANDBED 09/22/17 21:00 GLUCOSE POC LAB TO COLLECT [POC] QIDACANDBED 09/23/17 07:30 GLUCOSE POC LAB TO COLLECT [POC] QIDACANDBED 09/23/17 11:30 GLUCOSE POC LAB TO COLLECT [POC] QIDACANDBED - Plan Plan:: ASSESSMENT AND PLAN - Acute rhabdomyolysis - secondary to fall and prolonged time on the floor. CK level did jump overnight more consistent with rhabdomyolysis. Troponin level did rise slightly but I suspect this was related to skeletal muscle losses rather than an acute coronary syndrome. No chest pain. Vital signs stable. -IV fluid bolus this morning -IV fluids overnight -Fall precautions -Reassess mobility and strength in the morning with physical therapy Elevated troponin - Mild elevation at this time with EKG not suggestive of ischemia. Low-level elevation likely related to rhabdomyolysis as above -Repeat troponin in the morning -Discontinue Cardiac monitoring -Continue aspirin Hyperglycemia - Moderate elevation of blood sugars noted at the time of admission, likely secondary to stress reaction. -Accu-Cheks -Low-dose sliding scale Alzheimer's dementia without behavioral disturbance - Stable and comfortable at this time. No behavior issues reported. -Continue home medications Maintenance issues - - DVT prophylaxis - mechanical - GI prophylaxis - PPI - Nutrition - regular diet Disposition - anticipate discharge back to assisted living after the hospital stay Primary care physician - [facility] Rikki Zepeda M.D.
[2017-09-21] MEDS: cefTRIAXone 1 GM in Sodium Chloride 0.9% 50 ML IV SCH (16:00)
[2017-09-21] MEDS: Simvastatin 20 MG Tab PO SCH (20:11)
[2017-09-21] MEDS: risperiDONE 0.25 MG Tab PO SCH (20:11)
[2017-09-21] MEDS: Melatonin 3 MG Tab PO SCH (20:11)
[2017-09-22] MEDS: Sodium Chloride 0.9% 1,000 ML IV SCH ×3 (01:58→17:22)
[2017-09-22] MEDS: Pantoprazole 40 MG Tab.CR PO SCH (07:56)
[2017-09-22] MEDS: Insulin Aspart 100 Units/ML 3 ML Pen SUBCUT SCH ×4 (07:57→21:41)
[2017-09-22] MEDS: Memantine 10 MG Tab PO SCH ×2 (08:59→21:43)
[2017-09-22] MEDS: Aspirin 81 MG Tab.EC PO SCH (08:59)
[2017-09-22] MEDS: Escitalopram 20 MG Tab PO SCH (08:59)
[2017-09-22] MEDS: Furosemide 20 MG Tab PO SCH (08:59)
[2017-09-22] MEDS: Losartan 50 MG Tab PO SCH (09:00)
--- NOTE | 2017-09-22 09:37 | CR ---
Chest 1V Frontal HISTORY: Chest pain recent [place] COMPARISON: 06/13/2015. FINDINGS: There is moderate cardiomegaly. No acute congestive change. No focal infiltrates or effusio ns.
--- NOTE | 2017-09-22 09:38 | US ---
VL Duplex Lwr Ext Veins Ltd Rt HISTORY: Swelling COMPARISON: None FINDINGS: No evidence for deep venous thrombosis in the right lower extremity. Left common femoral ve in is patent.
--- NOTE | 2017-09-22 12:49 | PCM.PN ---
- General Info Date of Service: 09/22/17 Subjective Update: Mr. Lopez is been stable since yesterday, CK level has further improved, now down to 5000. Troponin level remains modestly elevated but improved from yesterday. Currently denies specific complaints other than some soreness in his right knee. He is unable to provide further specific information concerning symptoms or review systems because of significant dementia. - Patient Data Vitals - Most Recent: Last Vital Signs Temp 97.7 F 09/22/17 10:41 Pulse 58 L 09/22/17 10:41 Resp 18 09/22/17 10:41 BP 139/68 09/22/17 10:41 Pulse Ox 97 09/22/17 10:41 Weight - Most Recent: 286 lb 1.6 oz I&O - Last 24 Hours: Intake & Output 09/21/17 09/22/17 09/22/17 22:59 06:59 14:59 Intake Total 2830 1772 240 Output Total 500 475 Balance 2330 1297 240 Lab Results Last 24 Hours: Laboratory Results - last 24 hr 09/21/17 09/22/17 09/22/17 Range/Units 16:41 05:53 05:53 WBC 11.0 (4.5-11.0) K/uL RBC 4.15 L (4.30-5.90) M/uL Hgb 11.6 L (12.0-15.0) g/dL Hct 35.7 L (40.0-54.0) % MCV 86 (80-98) fL MCH 28 (27-31) pg MCHC 33 (32-36) % Plt Count 167 (150-400) K/uL Sodium 144 (140-148) mmol/L Potassium 4.2 (3.6-5.2) mmol/L Chloride 110 H (100-108) mmol/L Carbon Dioxide 26 (21-32) mmol/L Anion Gap 12.2 (5.0-14.0) mmol/L BUN 19 H (7-18) mg/dL Creatinine 1.0 (0.8-1.3) mg/dL Est Cr Clr Drug Dosing 59.61 mL/min Estimated GFR (MDRD) > 60 (>60) Glucose 111 H (74-106) mg/dL Calcium 7.6 L (8.5-10.1) mg/dL Creatine Kinase 8780 H 5684 H (39-308) U/L Troponin I 0.121 H* (0.000-0.056) ng/mL Ziggy Results Last 24 Hours: Microbiology 09/20/17 13:41 Urine Culture - Preliminary Urine, Clean Catch MIXED POSITIVE MARCELA DAY 1 Med Orders - Current: Current Medications Acetaminophen (Tylenol) 650 mg PO Q4H PRN PRN Reason: Pain/Fever Last Admin: 09/20/17 20:41 Dose: 650 mg Acetaminophen/Codeine Phosphate (Tylenol With Codeine No.3 300mg/30mg) 1 tab PO Q4H PRN PRN Reason: Pain Aspirin (Halfprin) 81 mg PO DAILY [facility] Last Admin: 09/22/17 08:59 Dose: 81 mg Bisacodyl (Dulcolax) 5 mg PO DAILY PRN PRN Reason: Constipation Escitalopram Oxalate (Lexapro) 20 mg PO DAILY [facility] Last Admin: 09/22/17 08:59 Dose: 20 mg Furosemide (Lasix) 20 mg PO DAILY [facility] Last Admin: 09/22/17 08:59 Dose: 20 mg Ceftriaxone Sodium 1 gm/ (Sodium Chloride) 50 mls @ 100 mls/hr IV Q24H [facility] Last Admin: 09/21/17 16:00 Dose: 100 mls/hr Sodium Chloride (Normal Saline) 1,000 mls @ 75 mls/hr IV ASDIRECTED [facility] Insulin Aspart (Novolog) 0 unit SUBCUT QIDACANDBED [facility]; Protocol Last Admin: 09/22/17 12:11 Dose: Not Given Losartan Potassium (Cozaar) 50 mg PO DAILY [facility] Last Admin: 09/22/17 09:00 Dose: 50 mg Melatonin (Melatonin) 9 mg PO BEDTIME [facility] Last Admin: 09/21/17 20:11 Dose: 9 mg Memantine (Namenda) 5 mg PO BID [facility] Last Admin: 09/22/17 08:59 Dose: 5 mg Ondansetron HCl (Zofran Odt) 4 mg PO Q6H PRN PRN Reason: Nausea able to take PO Pantoprazole Sodium (Protonix) 40 mg PO ACBREAKFAST [facility] Last Admin: 09/22/17 07:56 Dose: 40 mg Polyethylene Glycol (Miralax) 17 gm PO DAILY PRN PRN Reason: Constipation Risperidone (Risperidal) 0.5 mg PO BEDTIME [facility] Last Admin: 09/21/17 20:11 Dose: 0.5 mg Senna/Docusate Sodium (Senna Plus) 1 tab PO BID [facility] Last Admin: 09/22/17 08:59 Dose: 1 tab Simvastatin (Zocor) 40 mg PO BEDTIME [facility] Last Admin: 09/21/17 20:11 Dose: 40 mg Discontinued Medications Aspirin (Aspirin) 243 mg PO ONETIME ONE Stop: 09/20/17 10:24 Last Admin: 09/20/17 10:30 Dose: 243 mg Diphtheria/Tetanus/Acell Pertussis (Adacel) 0.5 ml IM .ONCE ONE Stop: 09/20/17 10:32 Last Admin: 09/20/17 10:47 Dose: 0.5 ml Lactated Ringer's (Ringers, Lactated) 1,000 mls @ 1,000 mls/hr IV BOLUS ONE Stop: 09/20/17 11:11 Last Admin: 09/20/17 10:27 Dose: 1,000 mls/hr Sodium Chloride (Normal Saline) 80 mls @ 3.5 mls/sec IV ONETIME ONE Stop: 09/20/17 10:50 Last Admin: 09/20/17 11:29 Dose: 4 mls/sec Lactated Ringer's (Ringers, Lactated) 1,000 mls @ 1,000 mls/hr IV BOLUS ONE Stop: 09/20/17 13:31 Last Admin: 09/20/17 12:40 Dose: 1,000 mls/hr Sodium Chloride (Normal Saline) 1,000 mls @ 125 mls/hr IV ASDIRECTED [facility] Last Admin: 09/21/17 00:11 Dose: 125 mls/hr Sodium Chloride (Normal Saline) 500 mls @ 500 mls/hr IV ASDIRECTED [facility] Stop: 09/20/17 17:01 Last Admin: 09/20/17 16:22 Dose: 500 mls/hr Sodium Chloride (Normal Saline) 500 mls @ 500 mls/hr IV ASDIRECTED [facility] Stop: 09/21/17 09:01 Last Admin: 09/21/17 08:13 Dose: 500 mls/hr Sodium Chloride (Normal Saline) 1,000 mls @ 150 mls/hr IV ASDIRECTED [facility] Last Admin: 09/22/17 08:23 Dose: 150 mls/hr Iopamidol (Isovue-370 (76%)) 100 ml IV . DIRECTED [facility] Stop: 09/20/17 16:00 Last Admin: 09/20/17 11:29 Dose: 100 ml Risperidone (Risperidal) 0.5 mg PO BEDTIME [facility] Sodium Chloride (Saline Flush) 10 ml FLUSH ONETIME ONE Stop: 09/20/17 10:50 Last Admin: 09/20/17 11:29 Dose: 10 ml - Exam Quality Assessment: DVT Prophylaxis General: Alert, Cooperative, Mild Distress Lungs: Clear to Auscultation, Normal Respiratory Effort Cardiovascular: Regular Rate, Regular Rhythm, No Murmurs GI/Abdominal Exam: Soft, Non-Tender, No Organomegaly, No Distention Extremities: Non-Tender, No Pedal Edema Skin: Other (Ecchymosis back, abrasion anterior aspect of the right knee) - Problem List Review Problem List Initiated/Reviewed/Updated: Yes - My Orders Last 24 Hours: My Active Orders 09/22/17 13:00 Sodium Chloride 0.9% @ 75 MLS/HR(1000ml) Sodium Chloride 0.9% [Normal Saline] 1 ,000 ml IV ASDIRECTED 09/23/17 05:00 BASIC METABOLIC PANEL,BMP [CHEM] Timed CREATINE KINASE,CK [CHEM] Timed TROPONIN I [CHEM] Timed - Plan Plan:: ASSESSMENT AND PLAN - Acute rhabdomyolysis - secondary to fall and prolonged time on the floor. CK level has improved from yesterday but still remains elevated -Continue IV fluids, decrease rate to 75 mL/h -Fall precautions -Daily physical therapy Elevated troponin - Mild elevation at this time with EKG not suggestive of ischemia. Low-level elevation likely related to rhabdomyolysis as above -Repeat troponin in the morning -Continue aspirin Hyperglycemia - Moderate elevation of blood sugars noted at the time of admission, likely secondary to stress reaction. -Accu-Cheks -Low-dose sliding scale Alzheimer's dementia without behavioral disturbance - Stable and comfortable at this time. No behavior issues reported. -Continue home medications Maintenance issues - - DVT prophylaxis - mechanical - GI prophylaxis - PPI - Nutrition - regular diet Disposition - anticipate discharge back to assisted living after the hospital stay Primary care physician - [facility]
[2017-09-22] MEDS: cefTRIAXone 1 GM in Sodium Chloride 0.9% 50 ML IV SCH (16:40)
[2017-09-22] MEDS: Simvastatin 20 MG Tab PO SCH (21:43)
[2017-09-22] MEDS: Melatonin 3 MG Tab PO SCH (21:43)
[2017-09-22] MEDS: risperiDONE 0.25 MG Tab PO SCH (21:43)
[2017-09-23] MEDS: Sodium Chloride 0.9% 1,000 ML IV SCH (06:21)
[2017-09-23] MEDS: Insulin Aspart 100 Units/ML 3 ML Pen SUBCUT SCH ×4 (08:06→20:57)
[2017-09-23] MEDS: Losartan 50 MG Tab PO SCH (08:16)
[2017-09-23] MEDS: Aspirin 81 MG Tab.EC PO SCH (08:16)
[2017-09-23] MEDS: Pantoprazole 40 MG Tab.CR PO SCH (08:16)
[2017-09-23] MEDS: Memantine 10 MG Tab PO SCH ×2 (08:16→20:57)
[2017-09-23] MEDS: Escitalopram 20 MG Tab PO SCH (08:16)
[2017-09-23] MEDS: Furosemide 20 MG Tab PO SCH (08:16)
[2017-09-23] MEDS: cefTRIAXone 1 GM in Sodium Chloride 0.9% 50 ML IV SCH (15:36)
--- NOTE | 2017-09-23 16:20 | PCM.PN ---
- General Info Date of Service: 09/23/17 Subjective Update: This patient has remained stable over the past 24 hours, CK remains significantly elevated, renal function has been stable. Vital signs have been good and he has remained afebrile. - Patient Data Vitals - Most Recent: Last Vital Signs Temp 96.7 F 09/23/17 11:00 Pulse 63 09/23/17 11:00 Resp 20 09/23/17 11:00 BP 143/63 H 09/23/17 11:00 Pulse Ox 96 09/23/17 11:00 Weight - Most Recent: 286 lb 1.608 oz I&O - Last 24 Hours: Intake & Output 09/23/17 09/23/17 09/23/17 06:59 14:59 22:59 Intake Total 909 280 Output Total 200 450 Balance 709 -170 Lab Results Last 24 Hours: Laboratory Results - last 24 hr 09/23/17 Range/Units 04:55 Sodium 140 (140-148) mmol/L Potassium 3.9 (3.6-5.2) mmol/L Chloride 106 (100-108) mmol/L Carbon Dioxide 25 (21-32) mmol/L Anion Gap 8.6 (5.0-14.0) mmol/L BUN 18 (7-18) mg/dL Creatinine 1.0 (0.8-1.3) mg/dL Est Cr Clr Drug Dosing 59.37 mL/min Estimated GFR (MDRD) > 60 (>60) Glucose 111 H (74-106) mg/dL Calcium 7.8 L (8.5-10.1) mg/dL Creatine Kinase 5915 H (39-308) U/L Troponin I 0.065 H* (0.000-0.056) ng/mL Ziggy Results Last 24 Hours: Microbiology 09/20/17 13:41 Urine Culture - Final Urine, Clean Catch MIXED POSITIVE MARCELA DAY 2 Med Orders - Current: Current Medications Acetaminophen (Tylenol) 650 mg PO Q4H PRN PRN Reason: Pain/Fever Last Admin: 09/20/17 20:41 Dose: 650 mg Acetaminophen/Codeine Phosphate (Tylenol With Codeine No.3 300mg/30mg) 1 tab PO Q4H PRN PRN Reason: Pain Aspirin (Halfprin) 81 mg PO DAILY [facility] Last Admin: 04/17/18 08:16 Dose: 81 mg Bisacodyl (Dulcolax) 5 mg PO DAILY PRN PRN Reason: Constipation Escitalopram Oxalate (Lexapro) 20 mg PO DAILY [facility] Last Admin: 09/23/17 08:16 Dose: 20 mg Furosemide (Lasix) 20 mg PO DAILY [facility] Last Admin: 09/23/17 08:16 Dose: 20 mg Ceftriaxone Sodium 1 gm/ (Sodium Chloride) 50 mls @ 100 mls/hr IV Q24H [facility] Last Admin: 09/23/17 15:36 Dose: 100 mls/hr Sodium Chloride (Normal Saline) 1,000 mls @ 75 mls/hr IV ASDIRECTED [facility] Last Admin: 09/23/17 06:21 Dose: 75 mls/hr Insulin Aspart (Novolog) 0 unit SUBCUT QIDACANDBED [facility]; Protocol Last Admin: 09/23/17 11:43 Dose: Not Given Losartan Potassium (Cozaar) 50 mg PO DAILY [facility] Last Admin: 09/23/17 08:16 Dose: 50 mg Melatonin (Melatonin) 9 mg PO BEDTIME [facility] Last Admin: 09/22/17 21:43 Dose: 9 mg Memantine (Namenda) 5 mg PO BID [facility] Last Admin: 09/23/17 08:16 Dose: 5 mg Ondansetron HCl (Zofran Odt) 4 mg PO Q6H PRN PRN Reason: Nausea able to take PO Pantoprazole Sodium (Protonix) 40 mg PO ACBREAKFAST [facility] Last Admin: 09/23/17 08:16 Dose: 40 mg Polyethylene Glycol (Miralax) 17 gm PO DAILY PRN PRN Reason: Constipation Risperidone (Risperidal) 0.5 mg PO BEDTIME [facility] Last Admin: 09/22/17 21:43 Dose: 0.5 mg Senna/Docusate Sodium (Senna Plus) 1 tab PO BID [facility] Last Admin: 09/23/17 08:16 Dose: 1 tab Simvastatin (Zocor) 40 mg PO BEDTIME [facility] Last Admin: 09/22/17 21:43 Dose: 40 mg Discontinued Medications Aspirin (Aspirin) 243 mg PO ONETIME ONE Stop: 09/20/17 10:24 Last Admin: 09/20/17 10:30 Dose: 243 mg Diphtheria/Tetanus/Acell Pertussis (Adacel) 0.5 ml IM .ONCE ONE Stop: 09/20/17 10:32 Last Admin: 09/20/17 10:47 Dose: 0.5 ml Lactated Ringer's (Ringers, Lactated) 1,000 mls @ 1,000 mls/hr IV BOLUS ONE Stop: 09/20/17 11:11 Last Admin: 09/20/17 10:27 Dose: 1,000 mls/hr Sodium Chloride (Normal Saline) 80 mls @ 3.5 mls/sec IV ONETIME ONE Stop: 09/20/17 10:50 Last Admin: 09/20/17 11:29 Dose: 4 mls/sec Lactated Ringer's (Ringers, Lactated) 1,000 mls @ 1,000 mls/hr IV BOLUS ONE Stop: 09/20/17 13:31 Last Admin: 09/20/17 12:40 Dose: 1,000 mls/hr Sodium Chloride (Normal Saline) 1,000 mls @ 125 mls/hr IV ASDIRECTED [facility] Last Admin: 09/21/17 00:11 Dose: 125 mls/hr Sodium Chloride (Normal Saline) 500 mls @ 500 mls/hr IV ASDIRECTED [facility] Stop: 09/20/17 17:01 Last Admin: 09/20/17 16:22 Dose: 500 mls/hr Sodium Chloride (Normal Saline) 500 mls @ 500 mls/hr IV ASDIRECTED [facility] Stop: 09/21/17 09:01 Last Admin: 09/21/17 08:13 Dose: 500 mls/hr Sodium Chloride (Normal Saline) 1,000 mls @ 150 mls/hr IV ASDIRECTED [facility] Last Admin: 09/22/17 08:23 Dose: 150 mls/hr Iopamidol (Isovue-370 (76%)) 100 ml IV . DIRECTED [facility] Stop: 09/20/17 16:00 Last Admin: 09/20/17 11:29 Dose: 100 ml Risperidone (Risperidal) 0.5 mg PO BEDTIME [facility] Sodium Chloride (Saline Flush) 10 ml FLUSH ONETIME ONE Stop: 09/20/17 10:50 Last Admin: 09/20/17 11:29 Dose: 10 ml - Exam Quality Assessment: DVT Prophylaxis General: Alert, Cooperative, No Acute Distress Lungs: Clear to Auscultation, Normal Respiratory Effort Cardiovascular: Regular Rate, Regular Rhythm, No Murmurs GI/Abdominal Exam: Soft, Non-Tender, No Organomegaly, No Distention Extremities: Non-Tender, No Pedal Edema Skin: Warm, Dry - Problem List Review Problem List Initiated/Reviewed/Updated: Yes - My Orders Last 24 Hours: My Active Orders 09/24/17 05:00 BASIC METABOLIC PANEL,BMP [CHEM] Timed CREATINE KINASE,CK [CHEM] Timed TROPONIN I [CHEM] Timed - Plan Plan:: ASSESSMENT AND PLAN - Acute rhabdomyolysis - secondary to fall and prolonged time on the floor. CK level stable from yesterday, no further improvement -Continue IV fluids, decrease rate to 75 mL/h -Fall precautions -Daily physical therapy Elevated troponin - improved this morning, almost within normal range -Repeat troponin in the morning -Continue aspirin Hyperglycemia -Accu-Cheks -Low-dose sliding scale Alzheimer's dementia without behavioral disturbance - Stable and comfortable at this time. No behavior issues reported. -Continue home medications Maintenance issues - - DVT prophylaxis - mechanical - GI prophylaxis - PPI - Nutrition - regular diet Disposition - anticipate discharge back to assisted living after the hospital stay Primary care physician - [facility]
[2017-09-23] MEDS: Melatonin 3 MG Tab PO SCH (20:57)
[2017-09-23] MEDS: risperiDONE 0.25 MG Tab PO SCH (20:58)
[2017-09-23] MEDS: Simvastatin 20 MG Tab PO SCH (20:58)
[2017-09-24] MEDS: Insulin Aspart 100 Units/ML 3 ML Pen SUBCUT SCH ×4 (08:35→21:17)
[2017-09-24] MEDS: Escitalopram 20 MG Tab PO SCH (09:05)
[2017-09-24] MEDS: Memantine 10 MG Tab PO SCH ×2 (09:05→21:22)
[2017-09-24] MEDS: Pantoprazole 40 MG Tab.CR PO SCH (09:06)
[2017-09-24] MEDS: Furosemide 20 MG Tab PO SCH (09:06)
[2017-09-24] MEDS: Aspirin 81 MG Tab.EC PO SCH (09:07)
[2017-09-24] MEDS: Losartan 50 MG Tab PO SCH (09:07)
[2017-09-24] MEDS: cefTRIAXone 1 GM in Sodium Chloride 0.9% 50 ML IV SCH (14:38)
--- NOTE | 2017-09-24 16:22 | PCM.PN ---
- General Info Date of Service: 09/24/17 Subjective Update: Mr. Lopez has been stable over the past 24 hours, urine output has been adequate and renal function essentially unchanged. CK level has shown further improvement although still remains elevated at 3700. Vital signs have otherwise been good and he has remained afebrile. Functional Status: Reports: Tolerating Diet, Urinating - Review of Systems General: Reports: Weakness. Denies: Fever, Chills Pulmonary: Reports: No Symptoms Cardiovascular: Reports: No Symptoms Gastrointestinal: Reports: No Symptoms Musculoskeletal: Reports: No Symptoms - Patient Data Vitals - Most Recent: Last Vital Signs Temp 96.0 F 09/24/17 14:33 Pulse 62 09/24/17 14:33 Resp 20 09/24/17 14:33 BP 155/75 H 09/24/17 14:33 Pulse Ox 97 09/24/17 03:00 Weight - Most Recent: 286 lb 1.608 oz I&O - Last 24 Hours: Intake & Output 09/24/17 09/24/17 09/24/17 06:59 14:59 22:59 Intake Total 1714 50 Output Total 575 200 Balance 1714 -525 -200 Lab Results Last 24 Hours: Laboratory Results - last 24 hr 09/24/17 Range/Units 05:42 Sodium 141 (140-148) mmol/L Potassium 3.9 (3.6-5.2) mmol/L Chloride 107 (100-108) mmol/L Carbon Dioxide 26 (21-32) mmol/L Anion Gap 8.2 (5.0-14.0) mmol/L BUN 15 (7-18) mg/dL Creatinine 0.9 (0.8-1.3) mg/dL Est Cr Clr Drug Dosing 65.97 mL/min Estimated GFR (MDRD) > 60 (>60) Glucose 110 H (74-106) mg/dL Calcium 7.9 L (8.5-10.1) mg/dL Creatine Kinase 3798 H (39-308) U/L Troponin I 0.029 (0.000-0.056) ng/mL Med Orders - Current: Current Medications Acetaminophen (Tylenol) 650 mg PO Q4H PRN PRN Reason: Pain/Fever Last Admin: 09/20/17 20:41 Dose: 650 mg Acetaminophen/Codeine Phosphate (Tylenol With Codeine No.3 300mg/30mg) 1 tab PO Q4H PRN PRN Reason: Pain Aspirin (Halfprin) 81 mg PO DAILY [facility] Last Admin: 09/24/17 09:07 Dose: 81 mg Bisacodyl (Dulcolax) 5 mg PO DAILY PRN PRN Reason: Constipation Escitalopram Oxalate (Lexapro) 20 mg PO DAILY [facility] Last Admin: 09/24/17 09:05 Dose: 20 mg Furosemide (Lasix) 20 mg PO DAILY [facility] Last Admin: 09/24/17 09:06 Dose: 20 mg Ceftriaxone Sodium 1 gm/ (Sodium Chloride) 50 mls @ 100 mls/hr IV Q24H [facility] Last Admin: 09/24/17 14:38 Dose: 100 mls/hr Sodium Chloride (Normal Saline) 1,000 mls @ 50 mls/hr IV ASDIRECTED [facility] Insulin Aspart (Novolog) 0 unit SUBCUT QIDACANDBED [facility]; Protocol Last Admin: 09/24/17 12:22 Dose: Not Given Losartan Potassium (Cozaar) 50 mg PO DAILY [facility] Last Admin: 09/24/17 09:07 Dose: 50 mg Melatonin (Melatonin) 9 mg PO BEDTIME [facility] Last Admin: 09/23/17 20:57 Dose: 9 mg Memantine (Namenda) 5 mg PO BID [facility] Last Admin: 09/24/17 09:05 Dose: 5 mg Ondansetron HCl (Zofran Odt) 4 mg PO Q6H PRN PRN Reason: Nausea able to take PO Pantoprazole Sodium (Protonix) 40 mg PO ACBREAKFAST [facility] Last Admin: 09/24/17 09:06 Dose: 40 mg Polyethylene Glycol (Miralax) 17 gm PO DAILY PRN PRN Reason: Constipation Risperidone (Risperidal) 0.5 mg PO BEDTIME [facility] Last Admin: 09/23/17 20:58 Dose: 0.5 mg Senna/Docusate Sodium (Senna Plus) 1 tab PO BID [facility] Last Admin: 09/24/17 09:06 Dose: 1 tab Simvastatin (Zocor) 40 mg PO BEDTIME [facility] Last Admin: 09/23/17 20:58 Dose: 40 mg Discontinued Medications Aspirin (Aspirin) 243 mg PO ONETIME ONE Stop: 09/20/17 10:24 Last Admin: 09/20/17 10:30 Dose: 243 mg Diphtheria/Tetanus/Acell Pertussis (Adacel) 0.5 ml IM .ONCE ONE Stop: 09/20/17 10:32 Last Admin: 09/20/17 10:47 Dose: 0.5 ml Lactated Ringer's (Ringers, Lactated) 1,000 mls @ 1,000 mls/hr IV BOLUS ONE Stop: 09/20/17 11:11 Last Admin: 09/20/17 10:27 Dose: 1,000 mls/hr Sodium Chloride (Normal Saline) 80 mls @ 3.5 mls/sec IV ONETIME ONE Stop: 09/20/17 10:50 Last Admin: 09/20/17 11:29 Dose: 4 mls/sec Lactated Ringer's (Ringers, Lactated) 1,000 mls @ 1,000 mls/hr IV BOLUS ONE Stop: 09/20/17 13:31 Last Admin: 09/20/17 12:40 Dose: 1,000 mls/hr Sodium Chloride (Normal Saline) 1,000 mls @ 125 mls/hr IV ASDIRECTED [facility] Last Admin: 09/21/17 00:11 Dose: 125 mls/hr Sodium Chloride (Normal Saline) 500 mls @ 500 mls/hr IV ASDIRECTED [facility] Stop: 09/20/17 17:01 Last Admin: 09/20/17 16:22 Dose: 500 mls/hr Sodium Chloride (Normal Saline) 500 mls @ 500 mls/hr IV ASDIRECTED [facility] Stop: 09/21/17 09:01 Last Admin: 09/21/17 08:13 Dose: 500 mls/hr Sodium Chloride (Normal Saline) 1,000 mls @ 150 mls/hr IV ASDIRECTED [facility] Last Admin: 09/22/17 08:23 Dose: 150 mls/hr Sodium Chloride (Normal Saline) 1,000 mls @ 75 mls/hr IV ASDIRECTED [facility] Last Admin: 09/23/17 06:21 Dose: 75 mls/hr Iopamidol (Isovue-370 (76%)) 100 ml IV . DIRECTED [facility] Stop: 09/20/17 16:00 Last Admin: 09/20/17 11:29 Dose: 100 ml Risperidone (Risperidal) 0.5 mg PO BEDTIME [facility] Sodium Chloride (Saline Flush) 10 ml FLUSH ONETIME ONE Stop: 09/20/17 10:50 Last Admin: 09/20/17 11:29 Dose: 10 ml - Exam General: Alert, Oriented, Cooperative, No Acute Distress Lungs: Clear to Auscultation, Normal Respiratory Effort Cardiovascular: Regular Rate, Regular Rhythm, No Murmurs GI/Abdominal Exam: Soft, Non-Tender, No Organomegaly, No Distention Extremities: Non-Tender, Pedal Edema Skin: Warm, Dry, Intact - Problem List Review Problem List Initiated/Reviewed/Updated: Yes - My Orders Last 24 Hours: My Active Orders 09/23/17 17:03 GLUCOSE POC LAB TO COLLECT [POC] Stat 09/24/17 16:30 GLUCOSE POC LAB TO COLLECT [POC] QIDACANDBED Sodium Chloride 0.9% @ 50 MLS/HR(1000ml) Sodium Chloride 0.9% [Normal Saline] 1 ,000 ml IV ASDIRECTED 09/24/17 21:00 GLUCOSE POC LAB TO COLLECT [POC] QIDACANDBED 09/25/17 05:00 BASIC METABOLIC PANEL,BMP [CHEM] Timed CREATINE KINASE,CK [CHEM] Timed 09/25/17 07:30 GLUCOSE POC LAB TO COLLECT [POC] QIDACANDBED 09/25/17 11:30 GLUCOSE POC LAB TO COLLECT [POC] QIDACANDBED 09/25/17 16:30 GLUCOSE POC LAB TO COLLECT [POC] QIDACANDBED 09/25/17 21:00 GLUCOSE POC LAB TO COLLECT [POC] QIDACANDBED - Plan Plan:: ASSESSMENT AND PLAN - Acute rhabdomyolysis - secondary to fall and prolonged time on the floor. CK improved from yesterday, still remains elevated at 3700 -Continue IV fluids, decrease rate to 50 mL/h -Fall precautions -Daily physical therapy Elevated troponin - within normal range today -Continue aspirin Hyperglycemia -Accu-Cheks -Low-dose sliding scale Alzheimer's dementia without behavioral disturbance - Stable and comfortable at this time. No behavior issues reported. -Continue home medications Maintenance issues - - DVT prophylaxis - mechanical - GI prophylaxis - PPI - Nutrition - regular diet Disposition - anticipate discharge back to assisted living after the hospital stay Primary care physician - [facility]
[2017-09-24] MEDS ORDERED: Sodium Chloride 0.9% 1,000 ML IV SCH (16:30)
[2017-09-24] MEDS: Melatonin 3 MG Tab PO SCH (21:21)
[2017-09-24] MEDS: Simvastatin 20 MG Tab PO SCH (21:23)
[2017-09-24] MEDS: risperiDONE 0.25 MG Tab PO SCH (21:25)
[2017-09-25] MEDS: Pantoprazole 40 MG Tab.CR PO SCH (07:51)
[2017-09-25] MEDS: Insulin Aspart 100 Units/ML 3 ML Pen SUBCUT SCH ×2 (07:54→11:55)
[2017-09-25] MEDS: Memantine 10 MG Tab PO SCH (08:46)
[2017-09-25] MEDS: Aspirin 81 MG Tab.EC PO SCH (08:46)
[2017-09-25] MEDS: Losartan 50 MG Tab PO SCH (08:46)
[2017-09-25] MEDS: Escitalopram 20 MG Tab PO SCH (08:46)
[2017-09-25] MEDS: Furosemide 20 MG Tab PO SCH (08:46)
[2017-09-25 11:12] VITALS: BP 136/54
--- NOTE | 2017-09-25 12:10 | PCM.DCSUM1 ---
Discharge Summary - Hospital Course Brief History: Mr. Lopez is an 81-year-old gentleman who was admitted through the emergency department with rhabdomyolysis after he fell and was on the floor for an extended period of time. - Discharge Data Discharge Date: 09/25/17 Discharge Disposition: DC/Tfer to SNF 03 Condition: Fair - Discharge Diagnosis/Problem(s) (1) Rhabdomyolysis SNOMED Code(s): 069735278 ICD Code: M62.82 - RHABDOMYOLYSIS Status: Acute Current Visit: Yes (2) Weakness SNOMED Code(s): 21365450 ICD Code: R53.1 - WEAKNESS Status: Acute Current Visit: Yes (3) Elevated troponin SNOMED Code(s): 260334212, 559503694, 115768112 ICD Code: R74.8 - ABNORMAL LEVELS OF OTHER SERUM ENZYMES Status: Acute Current Visit: Yes (4) Dementia SNOMED Code(s): 03776313 ICD Code: F03.90 - UNSPECIFIED DEMENTIA WITHOUT BEHAVIORAL DISTURBANCE Status: Chronic Current Visit: Yes Qualifiers: Dementia type: Alzheimer's disease Alzheimer's disease onset: late-onset Dementia behavioral disturbance: without behavioral disturbance Qualified Code (s): G30.1 - Alzheimer's disease with late onset; F02.80 - Dementia in other diseases classified elsewhere without behavioral disturbance - Patient Summary/Data Consults: Consultations 09/22/17 07:00 PT Evaluation and Treatment [CONS] Routine Please Evaluate and Treat. PT Reason for Consult: Strengthening This query below is only for informational purposes and is not editable. Admission Diagnosis/Problem: Elevated troponin I level Hospital Course: Jared presents to the ER after being found on the floor of his assisted living apartment. He has dementia and history is somewhat difficult to gather so history was gathered from his son as well as emergency room personnel. Jared reports that he currently feels fine and offers no concerns. He does not have chest pain and does not feel shortness of breath. No complaints of abdominal pain. He doesn't think he's had any fevers recently. His son reports that he and other caregivers have noticed that he the patient has been more sleepy than usual over the past several days. They have not noted anything out of the ordinary other than him being sleepy. He has not offered specific complaints to them recently and they have noticed that he seems to be having increased urine output with more wet incontinence pads. They haven't noticed change in color or odor of the urine. He is not on new medications. There are no obvious sick contacts. This morning he was found laying on the floor next to his bed area and he has no idea how he got there or how long he's been there. Workup in the emergency room revealed an elevated troponin and an elevated d-dimer. CT pulmonary angiogram did not show evidence for pulmonary embolism and lower extremity ultrasound was negative. Urine mildly suggestive of infection. The patient appears dehydrated. He was admitted for additional workup and management. He was given IV fluids for hydration and management of rhabdomyelolysis, CK levels and renal function were monitored daily during hospital stay. Renal function remained stable throughout hospitalization and his CK level slowly improve. It had not yet normalized prior to discharge what was significantly better than it had been on initial presentation. Troponin level gradually returned to normal and this was felt to be secondary to his skeletal muscle injury. Urine culture was obtained and came back growing only mixed annmarie. He will not require any further antibiotic therapy. Because of his progressive dementia and weakness he is not a candidate to return to assisted living facility and will be discharged to the [facility]. Activity will be as tolerated and he will resume his usual diet. Follow-up with primary care will be as needed. - Patient Instructions Diet: Usual Diet as Tolerated Activity: As Tolerated - Discharge Plan Home Medications: Home Meds Aspirin [Adult Low Dose Aspirin EC] 81 mg PO DAILY 06/13/15 [History] Cholecalciferol (Vitamin D3) [Vitamin D3] 1,000 units PO DAILY 06/13/15 [History ] Docusate Sodium/Sennosides [Senna Plus] 1 tab PO BID 06/13/15 [History] Escitalopram [Lexapro] 20 mg PO DAILY 06/13/15 [History] Losartan [Cozaar] 50 mg PO DAILY 06/13/15 [History] Nitroglycerin [Nitrostat] 1 tab PO ASDIRECTED PRN 06/13/15 [History] Omeprazole 20 mg PO DAILY 06/13/15 [History] Simvastatin [Zocor] 40 mg PO BEDTIME 06/13/15 [History] risperiDONE 0.5 mg PO BEDTIME 06/13/15 [History] Acetaminophen [Tylenol] 2 tab PO ASDIRECTED PRN 09/20/17 [History] Acetaminophen/Codeine [Tylenol with Codeine No.3 300MG/30MG] 1 tab PO ASDIRECTED PRN 09/20/17 [History] Furosemide 20 mg PO DAILY 09/20/17 [History] Memantine [Namenda] 5 mg PO BID 09/20/17 [History] - Discharge Summary/Plan Comment DC Time >30 min.: No - Patient Data Vitals - Most Recent: Last Vital Signs Temp 97.1 F 09/25/17 11:08 Pulse 62 09/25/17 11:08 Resp 16 09/25/17 11:08 BP 136/54 L 09/25/17 11:08 Pulse Ox 97 09/25/17 11:08 Weight - Most Recent: 286 lb 1.608 oz I&O - Last 24 hours: Intake & Output 09/24/17 09/25/17 09/25/17 22:59 06:59 14:59 Intake Total 240 499 360 Output Total 1150 300 300 Balance -910 199 60 Lab Results - Last 24 hrs: Laboratory Results - last 24 hr 09/25/17 Range/Units 05:00 Sodium 142 (140-148) mmol/L Potassium 4.0 (3.6-5.2) mmol/L Chloride 107 (100-108) mmol/L Carbon Dioxide 27 (21-32) mmol/L Anion Gap 7.8 (5.0-14.0) mmol/L BUN 17 (7-18) mg/dL Creatinine 0.9 (0.8-1.3) mg/dL Est Cr Clr Drug Dosing 65.97 mL/min Estimated GFR (MDRD) > 60 (>60) Glucose 116 H (74-106) mg/dL Calcium 7.9 L (8.5-10.1) mg/dL Creatine Kinase 1860 H (39-308) U/L Med Orders - Current: Current Medications Acetaminophen (Tylenol) 650 mg PO Q4H PRN PRN Reason: Pain/Fever Last Admin: 09/20/17 20:41 Dose: 650 mg Acetaminophen/Codeine Phosphate (Tylenol With Codeine No.3 300mg/30mg) 1 tab PO Q4H PRN PRN Reason: Pain Aspirin (Halfprin) 81 mg PO DAILY [facility] Last Admin: 09/25/17 08:46 Dose: 81 mg Bisacodyl (Dulcolax) 5 mg PO DAILY PRN PRN Reason: Constipation Escitalopram Oxalate (Lexapro) 20 mg PO DAILY [facility] Last Admin: 09/25/17 08:46 Dose: 20 mg Furosemide (Lasix) 20 mg PO DAILY [facility] Last Admin: 09/25/17 08:46 Dose: 20 mg Ceftriaxone Sodium 1 gm/ (Sodium Chloride) 50 mls @ 100 mls/hr IV Q24H [facility] Last Admin: 09/24/17 14:38 Dose: 100 mls/hr Sodium Chloride (Normal Saline) 1,000 mls @ 50 mls/hr IV ASDIRECTED [facility] Last Admin: 09/24/17 21:26 Dose: 50 mls/hr Insulin Aspart (Novolog) 0 unit SUBCUT QIDACANDBED [facility]; Protocol Last Admin: 09/25/17 11:55 Dose: Not Given Losartan Potassium (Cozaar) 50 mg PO DAILY [facility] Last Admin: 09/25/17 08:46 Dose: 50 mg Melatonin (Melatonin) 9 mg PO BEDTIME [facility] Last Admin: 09/24/17 21:21 Dose: 9 mg Memantine (Namenda) 5 mg PO BID [facility] Last Admin: 09/25/17 08:46 Dose: 5 mg Ondansetron HCl (Zofran Odt) 4 mg PO Q6H PRN PRN Reason: Nausea able to take PO Pantoprazole Sodium (Protonix) 40 mg PO ACBREAKFAST [facility] Last Admin: 09/25/17 07:51 Dose: 40 mg Polyethylene Glycol (Miralax) 17 gm PO DAILY PRN PRN Reason: Constipation Risperidone (Risperidal) 0.5 mg PO BEDTIME [facility] Last Admin: 09/24/17 21:25 Dose: 0.5 mg Senna/Docusate Sodium (Senna Plus) 1 tab PO BID [facility] Last Admin: 09/25/17 08:46 Dose: 1 tab Simvastatin (Zocor) 40 mg PO BEDTIME [facility] Last Admin: 09/24/17 21:23 Dose: 40 mg Discontinued Medications Aspirin (Aspirin) 243 mg PO ONETIME ONE Stop: 09/20/17 10:24 Last Admin: 09/20/17 10:30 Dose: 243 mg Diphtheria/Tetanus/Acell Pertussis (Adacel) 0.5 ml IM .ONCE ONE Stop: 09/20/17 10:32 Last Admin: 09/20/17 10:47 Dose: 0.5 ml Lactated Ringer's (Ringers, Lactated) 1,000 mls @ 1,000 mls/hr IV BOLUS ONE Stop: 09/20/17 11:11 Last Admin: 09/20/17 10:27 Dose: 1,000 mls/hr Sodium Chloride (Normal Saline) 80 mls @ 3.5 mls/sec IV ONETIME ONE Stop: 09/20/17 10:50 Last Admin: 09/20/17 11:29 Dose: 4 mls/sec Lactated Ringer's (Ringers, Lactated) 1,000 mls @ 1,000 mls/hr IV BOLUS ONE Stop: 09/20/17 13:31 Last Admin: 09/20/17 12:40 Dose: 1,000 mls/hr Sodium Chloride (Normal Saline) 1,000 mls @ 125 mls/hr IV ASDIRECTED [facility] Last Admin: 09/21/17 00:11 Dose: 125 mls/hr Sodium Chloride (Normal Saline) 500 mls @ 500 mls/hr IV ASDIRECTED [facility] Stop: 09/20/17 17:01 Last Admin: 09/20/17 16:22 Dose: 500 mls/hr Sodium Chloride (Normal Saline) 500 mls @ 500 mls/hr IV ASDIRECTED [facility] Stop: 09/21/17 09:01 Last Admin: 09/21/17 08:13 Dose: 500 mls/hr Sodium Chloride (Normal Saline) 1,000 mls @ 150 mls/hr IV ASDIRECTED [facility] Last Admin: 09/22/17 08:23 Dose: 150 mls/hr Sodium Chloride (Normal Saline) 1,000 mls @ 75 mls/hr IV ASDIRECTED [facility] Last Admin: 09/23/17 06:21 Dose: 75 mls/hr Iopamidol (Isovue-370 (76%)) 100 ml IV . DIRECTED [facility] Stop: 09/20/17 16:00 Last Admin: 09/20/17 11:29 Dose: 100 ml Risperidone (Risperidal) 0.5 mg PO BEDTIME [facility] Sodium Chloride (Saline Flush) 10 ml FLUSH ONETIME ONE Stop: 09/20/17 10:50 Last Admin: 09/20/17 11:29 Dose: 10 ml - Exam General: Reports: Alert, Cooperative, No Acute Distress Lungs: Reports: Clear to Auscultation, Normal Respiratory Effort Cardiovascular: Reports: Regular Rate, Regular Rhythm, No Murmurs GI/Abdominal Exam: Soft, Non-Tender, No Organomegaly, No Distention Extremities: Non-Tender, No Pedal Edema Skin: Reports: Warm, Dry
== END 2017-09-25 13:18 | DRG 566 ==
LOC: JP.ED 09:20 → JP.MS 14:11 → JP.SDSSCHI 09-23 08:02 → JP.MS 09-23 08:07
PROVIDERS: ADMIT Internal Medicine; ATTEND Hospitalist
DX: T79.6XXA Traumatic ischemia of muscle, initial encounter (principal); W19.XXXA Unspecified fall, initial encounter; Y92.092 Bedroom in other non-institutional residence as the place of occurrence of the external cause; Z66 Do not resuscitate; R79.1 Abnormal coagulation profile; R74.8 Abnormal levels of other serum enzymes; E86.0 Dehydration; G30.1 Alzheimer's disease with late onset; F02.80 Dementia in other diseases classified elsewhere, unspecified severity, without behavioral disturbance, psychotic disturbance, mood disturbance, and anxiety; R73.9 Hyperglycemia, unspecified; F32.9 Major depressive disorder, single episode, unspecified; H91.90 Unspecified hearing loss, unspecified ear; Z79.82 Long term (current) use of aspirin
CPT/HCPCS: 36415; 71045 ×2; 71275; 80048; 81001; 84484; 85027; 85379; 87086; 90471; 90715; 93005; 93971 ×2; 96360; 96361; 99285; A9270; J7030; J7050; J7120 ×2; Q9967; 82550; 82962; 97110-GO; 97110-GP; 97162-GP; 97165-GO; 97530-GP; J0696; J7040

== ENCOUNTER 2019-06-07 21:55 | Emergency (ER) | payer MEDICARE ==
[2019-06-07 22:28] VITALS: PULSE 68
[2019-06-07] MEDS ORDERED: Ondansetron 4 MG Tab.DIS PO ONE (22:35)
--- NOTE | 2019-06-07 22:38 | EDM.PDOC ---
ED HPI GENERAL MEDICAL PROBLEM - General Chief Complaint: Laceration Stated Complaint: FELL CUT HEAD Time Seen by Provider: 06/07/19 22:30 Source of Information: Reports: Patient, Family, RN Notes Reviewed History Limitations: Reports: No Limitations - History of Present Illness INITIAL COMMENTS - FREE TEXT/NARRATIVE: 83-year-old gentleman presents emergency department today via EMS services. He is a resident of a local snf had fallen hit the back of his head this was unwitnessed bleeding is controlled by the time he arrived in the snf he does not recall any of the events he is nauseated does complain of a headache Posterior Head Pain Score (Numeric/FACES): 2 - Related Data Allergies Allergy/AdvReac Type Severity Reaction Status Date / Time No Known Allergies Allergy Verified 06/07/19 22:16 Home Meds: Home Meds Aspirin [Adult Low Dose Aspirin EC] 81 mg PO DAILY 06/13/15 [History] Cholecalciferol (Vitamin D3) [Vitamin D3] 1,000 units PO DAILY 06/13/15 [History ] Docusate Sodium/Sennosides [Senna Plus] 1 tab PO BID 06/13/15 [History] Escitalopram [Lexapro] 20 mg PO DAILY 06/13/15 [History] Losartan [Cozaar] 50 mg PO DAILY 06/13/15 [History] Nitroglycerin [Nitrostat] 1 tab PO ASDIRECTED PRN 06/13/15 [History] Omeprazole 20 mg PO DAILY 06/13/15 [History] Simvastatin [Zocor] 40 mg PO BEDTIME 06/13/15 [History] risperiDONE 0.5 mg PO BEDTIME 06/13/15 [History] Acetaminophen [Tylenol] 2 tab PO ASDIRECTED PRN 09/20/17 [History] Acetaminophen/Codeine [Tylenol with Codeine No.3 300MG/30MG] 1 tab PO ASDIRECTED PRN 09/20/17 [History] Furosemide 20 mg PO DAILY 09/20/17 [History] Memantine [Namenda] 5 mg PO BID 09/20/17 [History] Past Medical History HEENT History: Reports: Hard of Hearing Cardiovascular History: Reports: CAD, Hypertension Gastrointestinal History: Reports: GERD Musculoskeletal History: Reports: Back Pain, Chronic Neurological History: Reports: Alzheimers Disease Psychiatric History: Reports: Alzheimers Disease, Dementia, Depression Endocrine/Metabolic History: Reports: Obesity/BMI 30+ Dermatologic History: Reports: Other (See Below) Other Dermatologic History: Dry skin - Infectious Disease History Infectious Disease History: Reports: Chicken Pox - Past Surgical History HEENT Surgical History: Reports: Cataract Surgery Social & Family History - Family History Cardiac: Reports: CAD - Tobacco Use Smoking Status *Q: Never Smoker Second Hand Smoke Exposure: No - Caffeine Use Caffeine Use: Reports: None - Recreational Drug Use Recreational Drug Use: No ED ROS GENERAL - Review of Systems Review Of Systems: See Below Constitutional: Reports: No Symptoms HEENT: Reports: Other (Laceration scalp occipital region) Respiratory: Reports: No Symptoms Cardiovascular: Reports: No Symptoms GI/Abdominal: Reports: Nausea : Reports: No Symptoms Skin: Reports: Wound Neurological: Reports: Headache ED EXAM, SKIN/RASH Exam: See Below Exam Limited By: Physical Impairment General Appearance: Alert, No Apparent Distress Eye Exam: Bilateral Eye: EOMI, Normal Inspection, PERRL Ears: Normal External Exam, Normal Canal, Hearing Grossly Normal, Normal TMs Nose: Normal Inspection, Normal Mucosa, No Blood Throat/Mouth: Normal Inspection, Normal Lips, Normal Teeth, Normal Gums, Normal Oropharynx, Normal Voice, No Airway Compromise Head: Normocephalic, Other (Laceration occipital region bleeding is controlled) Neck: Normal Inspection, Supple, Non-Tender, Full Range of Motion Respiratory/Chest: No Respiratory Distress, Lungs Clear, Normal Breath Sounds, No Accessory Muscle Use, Chest Non-Tender Cardiovascular: Regular Rate, Rhythm, No Murmur ED SKIN PROCEDURES - Laceration/Wound Repair Head Appearance: Subcutaneous, Irregular, Clean Distal NVT: Neuro & Vascular Intact, No Tendon Injury Anesthetic Type: Local Local Anesthesia - Lidocaine (Xylocaine): 1% with EPI Local Anesthetic Volume: 2cc Skin Prep: Saline Saline Irrigation (cc's): 60 Exploration/Debridement/Repair: Wound Explored, In a Bloodless Field, Explored to Base Closed with: [place] Lac/Wound length In cm: 3 # of Sutures: 5 Suture Type: Interrupted Sterile Dressing Applied: Nurse Tetanus Status Addressed: Yes Complications: No Other Appearance: Superficial, Irregular Distal NVT: Neuro & Vascular Intact, No Tendon Injury Anesthetic Type: Local Local Anesthesia - Lidocaine (Xylocaine): 1% with EPI Local Anesthetic Volume: 2cc Skin Prep: Saline Saline Irrigation (cc's): 60 Exploration/Debridement/Repair: Wound Explored, In a Bloodless Field, Explored to Base Closed with: Tr[place]ble Lac/Wound length In cm: 2 # of Sutures: 5 Suture Type: Interrupted Sterile Dressing Applied: Nurse Tetanus Status Addressed: Yes Complications: No Course - Vital Signs Last Recorded V/S: Last Vital Signs Temp 97.7 F 06/07/19 23:27 Pulse 68 06/07/19 23:27 Resp 18 06/07/19 23:27 BP 165/90 H 06/07/19 23:27 Pulse Ox 96 06/07/19 23:27 - Orders/Labs/Meds Meds: Medications Discontinued Medications Generic Name Dose Route Start Last Admin Trade Name Freq PRN Reason Stop Dose Admin Lidocaine/Epinephrine 20 ml 06/07/19 23:40 Xylocaine 1% With Epinephrine 1:100,000 SUBCUT 06/07/19 23:41 NOW STA Ondansetron HCl 4 mg 06/07/19 22:35 06/07/19 23:27 Zofran Odt PO 06/07/19 22:36 4 mg ONETIME ONE Administration Departure - Departure Time of Disposition: 23:56 Disposition: Home, Self-Care 01 Condition: Fair Clinical Impression: Scalp laceration Qualifiers: Encounter type: initial encounter Qualified Code(s): S01.01XA - Laceration without foreign body of scalp, initial encounter - Discharge Information Instructions: Laceration Care, Adult Referrals: PCP,None [Primary Care Provider] - Forms: ED Department Discharge Additional Instructions: Take fabricio out in 10 days, follow wound care instruction sheet follow-up with primary care or return to the emergency department for staple removal Sepsis Event Note - Evaluation Sepsis Screening Result: No Definite Risk - Focused Exam Vital Signs: Vital Signs Temp Pulse Resp BP Pulse Ox 06/07/19 23:27 97.7 F 68 18 165/90 H 96 06/07/19 22:27 98 F 68 16 189/92 H 95 Date Exam was Performed: 06/07/19 Time Exam was Performed: 23:52 - Assessment/Plan Plan: Assessment Acuity = acute Site and laterality = head injury with scalp laceration x2 each 2 cm in length Etiology = secondary to fall Manifestations = none Location of injury = Home Lab values = CT scan of the head was negative for any inner cranial process Plan Stable removal in 10 days follow-up primary care return to the emergency department follow head injury guidelines This note was dictated using [employer] voice recognition software please call with any questions on syntax or grammar.
[2019-06-07 23:32] VITALS: BP 165/90
--- NOTE | 2019-06-07 23:38 | CRLCT ---
Indication: Head injury Technique: Nonenhanced axial CT imaging through the head. Sagittal and coronal reconstructions are provided. Comparison: None Findings: There is no intracranial hemorrhage, edema, or mass effect. There is mild patchy hypoattenuation of the cerebral white matter, likely reflecting chronic microvascular ischemic change. Focal ill-defined hypodensity in the left subinsular white matter is compatible with a remote lacunar infarct. There is normal size of the ventricles. Incidental note is made of cavum septum pellucidum and cavum vergae. The basal cisterns are patent. The calvarium is intact. The visualized paranasal sinuses and mastoid air cells are well aerated. Skin laceration with underlying mild edema noted in the right parieto-occipital scalp. Impression: 1. No intracranial hemorrhage. 2. Right parieto-occipital scalp laceration. 3. Chronic ischemic changes, as above Please note that all CT scans at this facility use dose modulation, iterative reconstruction, and/or weight-based dosing when appropriate to reduce radiation dose to as low as reasonably achievable. Dictated by Elvie Perez MD @ Jun 07 2019 11:30PM Signed by Dr. Elvie Perez @ Jun 07 2019 11:37PM
[2019-06-07] MEDS ORDERED: Lidocaine 1% with EPINEPHrine 1:100,000 50 ML MDV SUBCUT STA (23:40)
== END 2019-06-08 00:23 | disposition home or self-care (01) ==
LOC: JP.ED 21:55
DX: S01.01XA Laceration without foreign body of scalp, initial encounter (principal); I10 Essential (primary) hypertension; K21.9 Gastro-esophageal reflux disease without esophagitis; I25.10 Atherosclerotic heart disease of native coronary artery without angina pectoris; E66.9 Obesity, unspecified; Z68.39 Body mass index [BMI] 39.0-39.9, adult; Z79.82 Long term (current) use of aspirin; Z79.899 Other long term (current) drug therapy; W19.XXXA Unspecified fall, initial encounter; W22.8XXA Striking against or struck by other objects, initial encounter
CPT/HCPCS: 12002; 70450; 99283; A9270

== ENCOUNTER 2020-04-09 08:26 | Inpatient (IN) | payer MEDICARE ==
--- NOTE | 2020-04-09 08:54 | EDM.PDOC ---
ED HPI GENERAL MEDICAL PROBLEM - General Chief Complaint: Abdominal Pain Stated Complaint: ABDO PAIN Time Seen by Provider: 04/09/20 08:30 Source of Information: Reports: EMS, Other (There are medication lists and diagnosis list from the assisted living but no notes on why he is here, no phone call) History Limitations: Reports: Other (Patient himself has dementia and some confusion) - History of Present Illness INITIAL COMMENTS - FREE TEXT/NARRATIVE: 84-year-old male who lives in an assisted living setting apparently has been complaining of abdominal pain through the night. It is localized to the right lower quadrant so they sent him in for evaluation for possible appendicitis. No fever, no nausea or vomiting, patient denies any pain elsewhere. Denies any difficulty breathing or chest pain. He is a DNR with only limited treatment accepted on his living well, however he will go through surgery if needed. He denies any past surgeries. Onset: Gradual (Symptoms developed overnight) Location: Reports: Abdomen (Left lower quadrant) Associated Symptoms: Reports: Confusion (Chronic stable confusion). Denies: Chest Pain, Nausea/Vomiting, Shortness of Breath Right Lower Abdomen Pain Score (Numeric/FACES): 4 - Related Data Allergies Allergy/AdvReac Type Severity Reaction Status Date / Time No Known Allergies Allergy Verified 04/09/20 08:34 Home Meds: Home Meds Aspirin [Adult Low Dose Aspirin EC] 81 mg PO DAILY 06/13/15 [History] Cholecalciferol (Vitamin D3) [Vitamin D3] 1,000 units PO DAILY 06/13/15 [History] Docusate Sodium/Sennosides [Senna Plus] 1 tab PO BID 06/13/15 [History] Losartan [Cozaar] 50 mg PO DAILY 06/13/15 [History] Nitroglycerin [Nitrostat] 1 tab PO ASDIRECTED PRN 06/13/15 [History] Omeprazole 20 mg PO DAILY 06/13/15 [History] Acetaminophen [Tylenol] 2 tab PO ASDIRECTED PRN 09/20/17 [History] Acetaminophen/Codeine [Tylenol with Codeine No.3 300MG/30MG] 1 tab PO ASDIRECTED PRN 09/20/17 [History] Furosemide 40 mg PO DAILY 09/20/17 [History] Memantine [Namenda] 10 mg PO BID 09/20/17 [History] Sertraline HCl [Zoloft] 125 mg PO DAILY 04/09/20 [History] polyethylene glycoL 3350 [MiraLAX] 17 gm PO DAILY 04/09/20 [History] Past Medical History HEENT History: Reports: Hard of Hearing Cardiovascular History: Reports: CAD, Hypertension Other Cardiovascular History: atherosclerotic heart disease Gastrointestinal History: Reports: GERD Other Gastrointestinal History: reflux Musculoskeletal History: Reports: Back Pain, Chronic Neurological History: Reports: Alzheimers Disease Psychiatric History: Reports: Alzheimers Disease, Dementia, Depression Endocrine/Metabolic History: Reports: Obesity/BMI 30+ Dermatologic History: Reports: Other (See Below) Other Dermatologic History: Dry skin - Infectious Disease History Infectious Disease History: Reports: Chicken Pox - Past Surgical History HEENT Surgical History: Reports: Cataract Surgery Social & Family History - Family History Cardiac: Reports: CAD - Caffeine Use Caffeine Use: Reports: None ED ROS GENERAL - Review of Systems Review Of Systems: See Below Constitutional: Denies: Fever, Chills Respiratory: Denies: Shortness of Breath Cardiovascular: Denies: Chest Pain GI/Abdominal: Reports: Abdominal Pain. Denies: Constipation, Diarrhea Skin: Reports: No Symptoms ED EXAM, GI/ABD - Physical Exam Exam: See Below Exam Limited By: No Limitations General Appearance: Alert, No Apparent Distress Eyes: Bilateral: Normal Appearance Respiratory/Chest: No Respiratory Distress, Lungs Clear Cardiovascular: Regular Rate, Rhythm GI/Abdominal Exam: Normal Bowel Sounds, Soft, Tender (Patient definitely reacts with some tenderness with even mild guarding in the right lower quadrant, no peritoneal signs or pain elsewhere in the abdomen) Extremities: Other (Just a trace of edema at the ankles bilaterally, symmetric) Neurological: Alert. No: Oriented (Not really oriented to time, some confusion on place) Psychiatric: Flat Affect Skin Exam: Warm, Dry Course - Vital Signs Last Recorded V/S: Last Vital Signs Temp 97.3 F 04/09/20 12:35 Pulse 87 04/09/20 12:45 Resp 18 04/09/20 12:45 BP 129/69 04/09/20 12:45 Pulse Ox 96 04/09/20 12:45 - Orders/Labs/Meds Orders: Active Orders 24 hr Category Date Time Status Patient Status [ADT] Routine ADT 04/09/20 11:12 Active Ambulate [RC] QID Care 04/09/20 11:12 Active Communication Order [RC] ASDIRECTED Care 04/09/20 11:43 Active Dorsiflex/Plantar flex x 10 [RC] Q4HR Care 04/09/20 11:12 Active Head of Bed Elevation [RC] ASDIRECTED Care 04/09/20 11:12 Active Intake and Output [RC] ASDIRECTED Care 04/09/20 11:12 Active Notify Provider Vital Signs [RC] ASDIRECTED Care 04/09/20 11:12 Active Pneumonia Education [RC] UPON Care 04/09/20 11:12 Active RT Incentive Spirometry [RC] Q1HWA Care 04/09/20 11:12 Active Ready for Discharge [RC] PER UNIT ROUTINE Care 04/09/20 11:12 Active Turn, Cough, Deep Breathe [RC] .PRN Care 04/09/20 11:12 Active Up to Chair [RC] ASDIRECTED Care 04/09/20 11:12 Active Vital Signs [RC] PER UNIT ROUTINE Care 04/09/20 11:12 Active Advance Diet Instructions [DIET] Diet 04/09/20 Breakfast Active Advance Diet Instructions [DIET] Diet 04/09/20 Dinner Active BASIC METABOLIC PANEL,BMP [CHEM] AM Lab 04/10/20 05:15 Ordered CBC WITH AUTO DIFF [HEME] AM Lab 04/10/20 05:15 Ordered CULTURE ANAEROBIC [RM] Routine Lab 04/09/20 12:10 Results CULTURE WOUND + SMEAR [RM] Routine Lab 04/09/20 12:10 Results Acetaminophen/HYDROcodone [[place] 325-5 MG] Med 04/09/20 11:12 Active 1 - 2 tab PO Q4H PRN Benzocaine/Cetylpyrd/Menthol [Cepacol Sore Throat] Med 04/09/20 11:12 Active 1 lozenge MUCMEM Q4H PRN Docusate Sodium [Colace] Med 04/09/20 11:12 Active 100 mg PO BID PRN Docusate Sodium/Sennosides [Senna Plus] Med 04/10/20 09:00 Active 1 tab PO BID Furosemide [Lasix] Med 04/09/20 14:00 Active 40 mg PO DAILY Losartan [Cozaar] Med 04/09/20 14:00 Active 50 mg PO DAILY Memantine [Namenda] Med 04/09/20 21:00 Active 10 mg PO BID Nitroglycerin [Nitrostat] Med 04/09/20 11:17 Active 0.4 mg SL ASDIRECTED PRN Pantoprazole [ProTONIX] Med 04/09/20 14:00 Active 40 mg PO ACBREAKFAST Piperacillin/Tazobactam/Dext [Zosyn in Dextrose Iso- Med 04/09/20 16:00 Active Osmotic] 4.5 gm Premix Bag 1 bag IV Q8H Ropivacaine [Naropin 0.5%] 60 ml Med 04/09/20 11:15 Active dexAMETHasone [Dexamethasone] 8 mg EPINEPHrine [Adrenalin] 0.4 mg Sodium Chloride 0.9% [Normal Saline] 17.6 ml NERVRT ASDIRECTED Sertraline [Zoloft] Med 04/10/20 09:00 Active 125 mg PO DAILY Sodium Chloride 0.9% [Normal Saline] 1,000 ml Med 04/09/20 11:45 Active IV ASDIRECTED Zolpidem [Ambien] Med 04/09/20 11:12 Active 5 mg PO BEDTIME PRN hydrOXYzine HCL [Vistaril] Med 04/09/20 11:12 Active 100 mg IM Q4H PRN polyethylene glycoL 3350 [MiraLAX] Med 04/10/20 09:00 Active 17 gm PO DAILY Abdominal Binder [OM.PC] Routine Oth 04/09/20 11:12 Ordered Convert IV to Saline Lock [OM.PC] Routine Oth 04/09/20 11:12 Ordered Procedure Education [OM.PC] Routine Oth 04/09/20 11:12 Ordered Sequential Compression Device [OM.PC] Routine Oth 04/09/20 11:12 Ordered Resuscitation Status Routine Resus Stat 04/09/20 11:12 Ordered Medication Orders Hydrocodone Bitart/Acetaminophen ([place] 325-5 Mg) 1 - 2 tab PO Q4H PRN PRN Reason: Pain Benzocaine/Menthol (Cepacol Sore Throat) 1 lozenge MUCMEM Q4H PRN PRN Reason: Sore Throat Ropivacaine 60 ml/Dexamethasone 8 mg/Epinephrine HCl 0.4 mg/ Sodium Chloride 17.6 ml 0 ml NERVRT ASDIRECTED [facility] Last Admin: 04/09/20 11:52 Dose: 80 syringe Documented by: RENEBET Docusate Sodium (Colace) 100 mg PO BID PRN PRN Reason: Constipation Furosemide (Lasix) 40 mg PO DAILY [facility] Hydroxyzine HCl (Vistaril) 100 mg IM Q4H PRN PRN Reason: Breakthrough Pain Piperacillin/Tazobactam/ (Dextrose 4.5 gm/ Premix) 100 mls @ 100 mls/hr IV Q8H [facility] Sodium Chloride (Normal Saline) 1,000 mls @ 125 mls/hr IV ASDIRECTED [facility] Losartan Potassium (Cozaar) 50 mg PO DAILY [facility] Memantine (Namenda) 10 mg PO BID [facility] Nitroglycerin (Nitrostat) 0.4 mg SL ASDIRECTED PRN PRN Reason: Chest Pain Pantoprazole Sodium (Protonix) 40 mg PO ACBREAKFAST [facility] Polyethylene Glycol (Miralax) 17 gm PO DAILY [facility] Senna/Docusate Sodium (Senna Plus) 1 tab PO BID [facility] Sertraline HCl 100 mg/ (Sertraline HCl 25 mg) 125 mg PO DAILY [facility] Zolpidem Tartrate (Ambien) 5 mg PO BEDTIME PRN PRN Reason: Sleep Labs: Laboratory Tests 04/09/20 04/09/20 04/09/20 Range/Units 08:56 08:56 09:47 WBC 16.8 H (4.5-11.0) K/uL RBC 4.73 (4.30-5.90) M/uL Hgb 12.5 (12.0-15.0) g/dL Hct 38.4 L (40.0-54.0) % MCV 81 (80-98) fL MCH 26 L (27-31) pg MCHC 33 (32-36) % Plt Count 200 (150-400) K/uL Neut % (Auto) 87 H (36-66) % Lymph % (Auto) 6 L (24-44) % [place] % (Auto) 7 H (2-6) % Eos % (Auto) 0 L (2-4) % Baso % (Auto) 0 (0-1) % Sodium 136 L (140-148) mmol/L Potassium 3.8 (3.6-5.2) mmol/L Chloride 101 (100-108) mmol/L Carbon Dioxide 24 (21-32) mmol/L Anion Gap 14.8 H (5.0-14.0) mmol/L BUN 20 H (7-18) mg/dL Creatinine 1.3 (0.8-1.3) mg/dL Est Cr Clr Drug Dosing 43.44 mL/min Estimated GFR (MDRD) 52 L (>60) Glucose 143 H (74-106) mg/dL Calcium 8.9 (8.5-10.1) mg/dL Total Bilirubin 0.5 (0.2-1.0) mg/dL AST 17 (15-37) U/L ALT 26 (12-78) U/L Alkaline Phosphatase 103 (46-116) U/L Total Protein 6.3 L (6.4-8.2) g/dL Albumin 3.1 L (3.4-5.0) g/dL Globulin 3.2 (2.3-3.5) g/dL Albumin/Globulin Ratio 1.0 L (1.2-2.2) SARS-CoV-2 RNA (JAEL) Negative (NEGATIVE) Meds: Medications Generic Name Dose Route Start Last Admin Trade Name Freq PRN Reason Stop Dose Admin Hydrocodone Bitart/Acetaminophen 1 - 2 tab 04/09/20 11:12 [place] 325-5 Mg PO Q4H PRN Pain Benzocaine/Menthol 1 lozenge 04/09/20 11:12 Cepacol Sore Throat MUCMEM Q4H PRN Sore Throat Ropivacaine 60 ml/ 0 ml 04/09/20 11:15 04/09/20 11:52 Dexamethasone 8 mg/ NERVRT 80 syringe Epinephrine HCl 0.4 mg/ Sodium ASDIRECTED [facility] Administration Chloride 17.6 ml Docusate Sodium 100 mg 04/09/20 11:12 Colace PO BID PRN Constipation Furosemide 40 mg 04/09/20 14:00 Lasix PO DAILY [facility] Hydroxyzine HCl 100 mg 04/09/20 11:12 Vistaril IM Q4H PRN Breakthrough Pain Piperacillin/Tazobactam/ 100 mls @ 100 mls/hr 04/09/20 16:00 Dextrose 4.5 gm/ Premix IV Q8H [facility] Sodium Chloride 1,000 mls @ 125 mls/hr 04/09/20 11:45 Normal Saline IV ASDIRECTED [facility] Losartan Potassium 50 mg 04/09/20 14:00 Cozaar PO DAILY [facility] Memantine 10 mg 04/09/20 21:00 Namenda PO BID [facility] Nitroglycerin 0.4 mg 04/09/20 11:17 Nitrostat SL ASDIRECTED PRN Chest Pain Pantoprazole Sodium 40 mg 04/09/20 14:00 Protonix PO ACBREAKFAST [facility] Polyethylene Glycol 17 gm 04/10/20 09:00 Miralax PO DAILY [facility] Senna/Docusate Sodium 1 tab 04/10/20 09:00 Senna Plus PO BID [facility] Sertraline HCl 100 mg/ 125 mg 04/10/20 09:00 Sertraline HCl 25 mg PO DAILY [facility] Zolpidem Tartrate 5 mg 04/09/20 11:12 Ambien PO BEDTIME PRN Sleep Discontinued Medications Generic Name Dose Route Start Last Admin Trade Name Freq PRN Reason Stop Dose Admin Dexamethasone Confirm 04/09/20 10:53 Dexamethasone Administered 04/09/20 10:54 Dose 4 mg .ROUTE .STK-MED ONE Fentanyl Confirm 04/09/20 10:53 Sublimaze Administered 04/09/20 10:54 Dose 250 mcg .ROUTE .STK-MED ONE Glycopyrrolate Confirm 04/09/20 10:53 Robinul Administered 04/09/20 10:54 Dose 1 mg .ROUTE .STK-MED ONE Ampicillin Sodium/Sulbactam 100 mls @ 200 mls/hr 04/09/20 09:50 04/09/20 10:22 Sodium 3 gm/ Sodium Chloride IV 04/09/20 10:19 200 mls/hr ONETIME ONE Administration Piperacillin Sod/Tazobactam 50 mls @ 100 mls/hr 04/09/20 10:30 04/09/20 10:32 Sod 3.375 gm/ Sodium Chloride IV Not Given Q8H [facility] Neostigmine Methylsulfate Confirm 04/09/20 10:53 Neostigmine Administered 04/09/20 10:54 Dose 5 mg .ROUTE .STK-MED ONE Ondansetron HCl Confirm 04/09/20 10:53 Zofran Administered 04/09/20 10:54 Dose 4 mg .ROUTE .STK-MED ONE Propofol Confirm 04/09/20 10:53 Diprivan 20 Ml Administered 04/09/20 10:54 Dose 200 mg .ROUTE .STK-MED ONE Rocuronium [place] Confirm 04/09/20 10:53 Zemuron Administered 04/09/20 10:54 Dose 50 mg .ROUTE .STK-MED ONE Succinylcholine Chloride Confirm 04/09/20 10:53 Quelicin Administered 04/09/20 10:54 Dose 200 mg .ROUTE .STK-MED ONE - Re-Assessments/Exams Free Text/Narrative Re-Assessment/Exam: 04/09/20 08:53 CBC and CMP were obtained, CT abdomen pelvis without contrast will be ordered. 04/09/20 09:43 White count is elevated, CT confirms inflammatory appendicitis. Antibiotics will be started and surgery consulted. 04/09/20 10:27 Impression: 1. Acute appendicitis. 2. Fatty liver. 3. Small hiatal hernia. Departure - Departure Time of Disposition: 12:15 Disposition: Admitted As Inpatient 64 Clinical Impression: Abdominal pain Qualifiers: Abdominal location: right lower quadrant Qualified Code(s): R10.31 - Right lower quadrant pain Appendicitis Qualifiers: Appendicitis type: acute appendicitis Acute appendicitis type: with localized peritonitis Appendicitis gangrene presence: without gangrene Appendicitis perforation presence: without perforation Appendicitis abscess presence: without abscess Qualified Code(s): K35.30 - Acute appendicitis with localized peritonitis, without perforation or gangrene - Discharge Information Sepsis Event Note (ED) - Evaluation Sepsis Screening Result: No Definite Risk - Focused Exam Vital Signs: Vital Signs Temp Pulse Resp BP Pulse Ox 04/09/20 12:45 87 18 129/69 96 04/09/20 12:40 82 18 145/75 H 04/09/20 12:35 97.3 F 82 18 134/77 96 04/09/20 10:54 73 16 110/59 L 95 04/09/20 08:32 96 F L 87 15 102/52 L 94 L
[2020-04-09] MEDS ORDERED: Ampicillin/Sulbactam Na 3 GM in Sodium Chloride 0.9% 100 ML IV ONE (09:50)
--- NOTE | 2020-04-09 10:23 | CRLCT ---
Indication: Right lower lobe abdominal pain Technique: Contrast-enhanced CT abdomen and pelvis Comparison: No comparison studies available. Findings: Heart size normal no pericardial effusion to trace pleural effusions. Subpleural ground-glass reticular opacities may represent fibrosis or and/or atelectasis. Basilar atelectasis Small hiatal hernia. Adrenal glands, pancreas gallbladder spleen appears unremarkable. Fatty liver. Round low-density lesion in the right hepatic lobe incompletely assessed could represent cyst. There is additional sub centimeter low-density lesion in the liver as well. No abdominal aortic aneurysm Minimal diverticulosis. No hydronephrosis. Low-density lesion in the right inferior kidney incompletely assessed. Trabeculated urinary bladder. Prostate are mildly prominent. Appendix is dilated with periappendiceal inflammatory change. Impression: 1. Acute appendicitis. 2. Fatty liver. 3. Small hiatal hernia. Please note that all CT scans at this facility use dose modulation, iterative reconstruction, and/or weight-based dosing when appropriate to reduce radiation dose to as low as reasonably achievable. Dictated by Hayley Jordan MD @ Apr 09 2020 10:15AM Signed by Dr. Hayley Jordan @ Apr 09 2020 10:21AM
[2020-04-09] MEDS ORDERED: Piperacillin/Tazobactam 3.375 GM in Sodium Chloride 0.9% 50 ML IV SCH (10:30)
[2020-04-09] MEDS ORDERED: Ondansetron 4 MG/2 ML SDV ONE (10:53)
[2020-04-09] MEDS ORDERED: Dexamethasone 4 MG/ML SDV ONE (10:53)
[2020-04-09] MEDS ORDERED: fentaNYL 250 MCG/5 ML SDV ONE (10:53)
[2020-04-09] MEDS ORDERED: Rocuronium 50 MG/5 ML Vial ONE (10:53)
[2020-04-09] MEDS ORDERED: Propofol 200 MG/20 ML SDV ONE (10:53)
[2020-04-09] MEDS ORDERED: Succinylcholine 200 MG/10 ML MDV ONE (10:53)
[2020-04-09] MEDS ORDERED: Glycopyrrolate 0.2 MG/ML 5 ML MDV ONE (10:53)
[2020-04-09] MEDS ORDERED: Neostigmine Methylsulfate 1 MG/ML 5 ML Syringe ONE (10:53)
[2020-04-09] MEDS ORDERED: Benzocaine/Cetylpyridinium/Menthol Lozenge MUCMEM PRN (11:12)
[2020-04-09] MEDS ORDERED: Docusate Sodium 100 MG Cap PO PRN (11:12)
[2020-04-09] MEDS ORDERED: Acetaminophen/HYDROcodone 325-5 MG Tab PO PRN (11:12)
[2020-04-09] MEDS ORDERED: Zolpidem 5 MG Tab PO PRN (11:12)
[2020-04-09] MEDS ORDERED: hydrOXYzine HCL 100 MG/2 ML SDV IM PRN (11:12)
[2020-04-09] MEDS ORDERED: Nitroglycerin 0.4 MG Tab.SL SL PRN (11:17)
[2020-04-09] MEDS: Losartan 50 MG Tab PO SCH (15:07)
[2020-04-09] MEDS: Furosemide 40 MG Tab PO SCH (15:07)
[2020-04-09] MEDS: Pantoprazole 40 MG Tab.CR PO SCH (15:07)
[2020-04-09] MEDS: Piperacillin/Tazobactam/Dext 4.5 GM in Premix Bag 1 BAG IV SCH ×2 (15:08→23:12)
[2020-04-09] MEDS: Sodium Chloride 0.9% 1,000 ML IV SCH ×2 (16:37→23:19)
[2020-04-09] MEDS: Memantine 10 MG Tab PO SCH (20:00)
--- NOTE | 2020-04-10 07:11 | PN ---
DATE OF SERVICE: 04/10/2020 SUBJECTIVE: The patient is doing well. Pain is well controlled. No nausea, vomiting, shortness of breath, or chest pain. Good urine output per nurses report. OBJECTIVE: VITAL SIGNS: Stable per nurses report. CARDIOVASCULAR: Regular rhythm and rate. RESPIRATORY: Lungs clear to ausculation bilaterally. SKIN: Incisions healing well. ASSESSMENT: Status post laparoscopic appendectomy. PLAN: The patient will stay for approximately 24 hours for antibiotics. We will saline lock his IV, recheck his labs in the morning, work on diet and activity today, and remove his Blanca. Bulmaro Briggs MD /[id number]
[2020-04-10] MEDS: Piperacillin/Tazobactam/Dext 4.5 GM in Premix Bag 1 BAG IV SCH ×3 (07:53→23:42)
[2020-04-10] MEDS ORDERED: SERTRALINE HCL 125 MG PO SCH (09:00)
[2020-04-10] MEDS ORDERED: FLU Vacc QV2020-21(65YR UP)/PF 240 MCG/0.7 ML Syringe IM ONE (10:00)
[2020-04-10] MEDS: Pantoprazole 40 MG Tab.CR PO SCH (10:28)
[2020-04-10] MEDS: Memantine 10 MG Tab PO SCH ×2 (10:30→21:44)
[2020-04-10] MEDS: Furosemide 40 MG Tab PO SCH (10:30)
[2020-04-10] MEDS: Losartan 50 MG Tab PO SCH (10:30)
[2020-04-10] MEDS: Sertraline 100 MG, Sertraline 25 MG PO SCH ×2 (10:30)
[2020-04-10] MEDS: Polyethylene Glycol 3350 Powder 17 GM Packet PO SCH (10:49)
--- NOTE | 2020-04-10 12:13 | OR ---
DATE OF PROCEDURE: 04/09/2020 SURGEON: Bulmaro Briggs MD PROCEDURE: 1. Laparoscopic appendectomy. 2. Removal of omental lesion. COMPLICATIONS: None. FACE CLEANER: None. ANESTHESIA: General. RISKS: Risks, benefits, alternatives, and limitations including but not limited to infection; bleeding; injury to abdominal structures such as bowel, bladder, or ureter; or requirement for reoperation secondary to abscess, sepsis, and other risks not listed here were explained to both the patient and the family via the telephone. PROCEDURE IN DETAIL: The patient was placed in supine position. A supraumbilical curvilinear incision was made. A Veress needle was used to enter the abdomen without abnormality. A drop test was performed without abnormality. The abdomen was subsequently insufflated. Two additional 5 mm ports were entered under direct visualization. In the right lower quadrant, the appendix was identified. This appeared to be ruptured in piecemeal fashion. This was excised and sent for pathology using blunt dissection. This was transected using chaudhari load stapler. In close proximity to this, there was an infarcted piece of omentum. Most likely, this was sent to Pathology as a second specimen. The abdomen was irrigated with approximately 2 L of irrigation. The appendix was cultured. No other abnormalities were noted. The pressure was dropped to 7. No abnormal bleeding was noted. The liver was inspected without abnormality. The air was removed. The entry point was inspected for enterotomy or injury, none was noted. The wounds were thoroughly irrigated and then closed with 3-0 and 4-0 Vicryl. Dermabond was applied. The patient tolerated the procedure well. Bulmaro Briggs MD /[id number]
--- NOTE | 2020-04-10 12:13 | OR ---
DATE OF PROCEDURE: 04/09/2020 SURGEON: Bulmaro Briggs MD PROCEDURE: Transverse abdominis plane block bilaterally. COMPLICATIONS: None. SLIP MAKER: None. RISKS: Risks, benefits, alternatives, and limitations including but not limited to infection, bleeding, or injury to abdominal structures were explained to the patient and family via telephone. They understand these risks and wished to proceed. PROCEDURE IN DETAIL: The patient was placed in supine position. The left transverse plane was identified first. This was accessed using via 13 megahertz ultrasound probe, and 80% of solution was injected on the left side. The right side was then performed in same manner, same fashion, same technique, and same sequence using the same equipment. The patient tolerated the procedure well. Bulmaro Briggs MD /[id number]
[2020-04-10] MEDS: Tamsulosin 0.4 MG Cap.ER PO SCH (17:56)
[2020-04-11] MEDS ORDERED: Sodium Chloride 0.9% 250 ML IV ONE (03:58)
[2020-04-11 07:03] VITALS: BP 123/51; PULSE 58
[2020-04-11] MEDS: Pantoprazole 40 MG Tab.CR PO SCH (07:52)
[2020-04-11] MEDS: Piperacillin/Tazobactam/Dext 4.5 GM in Premix Bag 1 BAG IV SCH (07:54)
[2020-04-11] MEDS: Memantine 10 MG Tab PO SCH (09:17)
[2020-04-11] MEDS: Sertraline 100 MG, Sertraline 25 MG PO SCH ×2 (09:17)
[2020-04-11] MEDS: Polyethylene Glycol 3350 Powder 17 GM Packet PO SCH (09:18)
[2020-04-11] MEDS: Losartan 50 MG Tab PO SCH (09:18)
[2020-04-11] MEDS: Furosemide 40 MG Tab PO SCH (09:18)
[2020-04-11] MEDS: Tamsulosin 0.4 MG Cap.ER PO SCH (09:18)
--- NOTE | 2020-04-17 08:41 | DISCH ---
DISCHARGE DIAGNOSIS: Status post appendectomy. SUMMARY OF HOSPITAL COURSE: A pleasant, 84-year-old male who underwent uneventful laparoscopic appendectomy. The patient had no complications. He was treated with IV antibiotics and appendectomy. FOLLOWUP: With Surgery in 7 to 14 days. DISCHARGE MEDICATIONS: Please see MAR. ACTIVITY: No lifting greater than 30 pounds x30 days. /[id number]
== END 2020-04-11 10:35 | disposition other institution (70) | DRG 342 ==
LOC: JP.ED 08:26 → JP.SDS 11:13 → JP.MS 11:14
PROVIDERS: ADMIT Surgery; ATTEND Surgery
PROC: 0DTJ4ZZ Resection of Appendix, Percutaneous Endoscopic Approach (ICD-10-PCS; principal; 2020-04-09)
DX: K35.30 Acute appendicitis with localized peritonitis, without perforation or gangrene (principal); Z68.41 Body mass index [BMI] 40.0-44.9, adult; K44.9 Diaphragmatic hernia without obstruction or gangrene; K76.0 Fatty (change of) liver, not elsewhere classified; H91.90 Unspecified hearing loss, unspecified ear; I25.10 Atherosclerotic heart disease of native coronary artery without angina pectoris; I10 Essential (primary) hypertension; K21.9 Gastro-esophageal reflux disease without esophagitis; G89.29 Other chronic pain; M54.9 Dorsalgia, unspecified; G30.9 Alzheimer's disease, unspecified; F02.80 Dementia in other diseases classified elsewhere, unspecified severity, without behavioral disturbance, psychotic disturbance, mood disturbance, and anxiety; F32.9 Major depressive disorder, single episode, unspecified; E66.9 Obesity, unspecified; Z20.828 Contact with and (suspected) exposure to other viral communicable diseases; Z79.82 Long term (current) use of aspirin; Z79.899 Other long term (current) drug therapy; Z98.49 Cataract extraction status, unspecified eye
CPT/HCPCS: 36415; 74176; 80053; 85025; 99285; J0295; J0330; J1100; J2405; J2704; J2710; J3010; J3490; J7050; U0002; 80048; 87070; 87075; 87077; 87186; 87205; 88304; 88305; 90662; 97162-GP; 97530-GP; 99284; A9270-GY; G0008; J0171; J2543; J2795; J7030

== ENCOUNTER 2020-07-26 22:28 | Observation (INO) | payer MEDICARE ==
[2020-07-26] MEDS ORDERED: Sodium Chloride 0.9% 10 ML Syringe FLUSH PRN (23:02)
[2020-07-26] MEDS ORDERED: Ondansetron 4 MG/2 ML SDV IVPUSH ONE (23:04)
--- NOTE | 2020-07-26 23:07 | EDM.PDOC ---
ED HPI GENERAL MEDICAL PROBLEM - General Chief Complaint: Gastrointestinal Problem Stated Complaint: MED[facility] Time Seen by Provider: 07/26/20 22:57 Source of Information: Reports: Patient, RN Notes Reviewed History Limitations: Reports: Physical Impairment - History of Present Illness INITIAL COMMENTS - FREE TEXT/NARRATIVE: 84-year-old gentleman presents emergency department today via EMS services, he states he started with nausea and vomiting this afternoon has progressively gotten worse he is unable to keep any food products down feels nauseated right now. He does have a history of dementia sometimes communication is difficult with him he is also hard of hearing - Related Data Allergies Allergy/AdvReac Type Severity Reaction Status Date / Time No Known Allergies Allergy Verified 07/26/20 22:43 Home Meds: Home Meds Aspirin [Adult Low Dose Aspirin EC] 81 mg PO DAILY 06/13/15 [History] Cholecalciferol (Vitamin D3) [Vitamin D3] 1,000 units PO DAILY 06/13/15 [History] Docusate Sodium/Sennosides [Senna Plus] 1 tab PO BID 06/13/15 [History] Losartan [Cozaar] 50 mg PO DAILY 06/13/15 [History] Nitroglycerin [Nitrostat] 1 tab PO ASDIRECTED PRN 06/13/15 [History] Omeprazole 20 mg PO DAILY 06/13/15 [History] Acetaminophen [Tylenol] 2 tab PO ASDIRECTED PRN 09/20/17 [History] Furosemide 40 mg PO DAILY 09/20/17 [History] Memantine [Namenda] 10 mg PO BID 09/20/17 [History] Sertraline HCl [Zoloft] 125 mg PO DAILY 04/09/20 [History] polyethylene glycoL 3350 [MiraLAX] 17 gm PO DAILY 04/09/20 [History] Past Medical History HEENT History: Reports: Hard of Hearing Cardiovascular History: Reports: CAD, Hypertension Other Cardiovascular History: atherosclerotic heart disease Gastrointestinal History: Reports: GERD Other Gastrointestinal History: reflux Musculoskeletal History: Reports: Back Pain, Chronic Neurological History: Reports: Alzheimers Disease Psychiatric History: Reports: Alzheimers Disease, Dementia, Depression Endocrine/Metabolic History: Reports: Obesity/BMI 30+ Dermatologic History: Reports: Other (See Below) Other Dermatologic History: Dry skin - Infectious Disease History Infectious Disease History: Reports: Chicken Pox - Past Surgical History HEENT Surgical History: Reports: Cataract Surgery Social & Family History - Family History Family Medical History: No Pertinent Family History Cardiac: Reports: CAD - Tobacco Use Tobacco Use Status *Q: Never Tobacco User - Caffeine Use Caffeine Use: Reports: Coffee - Recreational Drug Use Recreational Drug Use: No ED ROS GENERAL - Review of Systems Review Of Systems: See Below Constitutional: Reports: No Symptoms HEENT: Reports: No Symptoms Respiratory: Reports: No Symptoms Cardiovascular: Reports: No Symptoms GI/Abdominal: Reports: Nausea, Vomiting. Denies: Abdominal Pain, Constipation, Diarrhea ED EXAM, GI/ABD - Physical Exam Exam: See Below Exam Limited By: Physical Impairment General Appearance: Alert, No Apparent Distress Respiratory/Chest: No Respiratory Distress, Lungs Clear, Normal Breath Sounds, No Accessory Muscle Use, Chest Non-Tender Cardiovascular: Tachycardia, Systolic Murmur GI/Abdominal Exam: Normal Bowel Sounds, Soft, Non-Tender #1 Interpretation EKG Date: 07/27/20 Rhythm: NSR [place]: LAD-Left [place] Deviation P-Wave: Present QRS: Normal ST-T: Normal QT: Normal Course - Vital Signs Last Recorded V/S: Last Vital Signs Temp 100.2 F 07/26/20 22:44 Pulse 111 H 07/27/20 00:10 Resp 18 07/27/20 00:10 BP 169/83 H 07/27/20 00:10 Pulse Ox 94 L 07/27/20 00:10 - Orders/Labs/Meds Orders: Active Orders 24 hr Category Date Time Status Peripheral IV Care [RC] . DIRECTED Care 07/26/20 23:02 Active Abdomen 1V Flat [CR] Stat Exams 07/27/20 00:44 Taken Lactated Ringers [Ringers, Lactated] 1,000 ml Med 07/26/20 23:15 Active IV ASDIRECTED Sodium Chloride 0.9% [Saline Flush] Med 07/26/20 23:02 Active 10 ml FLUSH ASDIRECTED PRN Peripheral IV Insertion Adult [OM.PC] Urgent Oth 07/26/20 23:02 Ordered Medication Orders Lactated Ringer's (Ringers, Lactated) 1,000 mls @ 500 mls/hr IV ASDIRECTED BONITA Last Admin: 07/26/20 23:22 Dose: 500 mls/hr Documented by: GLO Sodium Chloride (Saline Flush) 10 ml FLUSH ASDIRECTED PRN PRN Reason: Keep Vein Open Last Admin: 07/26/20 23:22 Dose: 10 ml Documented by: GLO Labs: Laboratory Tests 07/26/20 07/26/20 07/26/20 Range/Units 23:16 23:16 23:16 WBC 14.7 H (4.5-11.0) K/uL RBC 5.67 (4.30-5.90) M/uL Hgb 14.8 D (12.0-15.0) g/dL Hct 45.5 (40.0-54.0) % MCV 80 (80-98) fL MCH 26 L (27-31) pg MCHC 33 (32-36) % Plt Count 205 (150-400) K/uL Neut % (Auto) 94 H (36-66) % Lymph % (Auto) 2 L (24-44) % [place] % (Auto) 4 (2-6) % Eos % (Auto) 0 L (2-4) % Baso % (Auto) 0 (0-1) % Sodium 138 L (140-148) mmol/L Potassium 4.2 (3.6-5.2) mmol/L Chloride 100 (100-108) mmol/L Carbon Dioxide 24 (21-32) mmol/L Anion Gap 18.2 H (5.0-14.0) mmol/L BUN 23 H (7-18) mg/dL Creatinine 1.1 (0.8-1.3) mg/dL Est Cr Clr Drug Dosing 51.34 mL/min Estimated GFR (MDRD) > 60 (>60) Glucose 219 H (74-106) mg/dL Lactic Acid 3.3 H (0.4-2.0) mmol/L Calcium 8.9 (8.5-10.1) mg/dL Total Bilirubin 0.4 (0.2-1.0) mg/dL AST 21 (15-37) U/L ALT 34 (12-78) U/L Alkaline Phosphatase 106 (46-116) U/L Troponin I < 0.017 (0.000-0.056) ng/mL Total Protein 7.1 (6.4-8.2) g/dL Albumin 3.6 (3.4-5.0) g/dL Globulin 3.5 (2.3-3.5) g/dL Albumin/Globulin Ratio 1.0 L (1.2-2.2) Lipase 135 (73-393) U/L Urine Color (YELLOW) Urine Appearance (CLEAR) Urine pH (5.0-8.0) Ur Specific [place] (1.008-1.030) Urine Protein (NEGATIVE) mg/dL Urine Glucose (UA) (NEGATIVE) mg/dL Urine Ketones (NEGATIVE) mg/dL Urine Occult Blood (NEGATIVE) Urine Nitrite (NEGATIVE) Urine Bilirubin (NEGATIVE) Urine Urobilinogen (0.2-1.0) EU/dL Ur Leukocyte Esterase (NEGATIVE) Urine RBC (0-5) Urine WBC (0-5) Ur Epithelial Cells Amorphous Sediment Urine Bacteria Urine Mucus 07/27/20 Range/Units 00:27 WBC (4.5-11.0) K/uL RBC (4.30-5.90) M/uL Hgb (12.0-15.0) g/dL Hct (40.0-54.0) % MCV (80-98) fL MCH (27-31) pg MCHC (32-36) % Plt Count (150-400) K/uL Neut % (Auto) (36-66) % Lymph % (Auto) (24-44) % [place] % (Auto) (2-6) % Eos % (Auto) (2-4) % Baso % (Auto) (0-1) % Sodium (140-148) mmol/L Potassium (3.6-5.2) mmol/L Chloride (100-108) mmol/L Carbon Dioxide (21-32) mmol/L Anion Gap (5.0-14.0) mmol/L BUN (7-18) mg/dL Creatinine (0.8-1.3) mg/dL Est Cr Clr Drug Dosing mL/min Estimated GFR (MDRD) (>60) Glucose (74-106) mg/dL Lactic Acid (0.4-2.0) mmol/L Calcium (8.5-10.1) mg/dL Total Bilirubin (0.2-1.0) mg/dL AST (15-37) U/L ALT (12-78) U/L Alkaline Phosphatase (46-116) U/L Troponin I (0.000-0.056) ng/mL Total Protein (6.4-8.2) g/dL Albumin (3.4-5.0) g/dL Globulin (2.3-3.5) g/dL Albumin/Globulin Ratio (1.2-2.2) Lipase (73-393) U/L Urine Color Yellow (YELLOW) Urine Appearance Slightly cloudy A (CLEAR) Urine pH 5.5 (5.0-8.0) Ur Specific [place] >= 1.030 (1.008-1.030) Urine Protein Negative (NEGATIVE) mg/dL Urine Glucose (UA) Negative (NEGATIVE) mg/dL Urine Ketones 15 H (NEGATIVE) mg/dL Urine Occult Blood Trace-intact H (NEGATIVE) Urine Nitrite Negative (NEGATIVE) Urine Bilirubin Negative (NEGATIVE) Urine Urobilinogen 0.2 (0.2-1.0) EU/dL Ur Leukocyte Esterase Negative (NEGATIVE) Urine RBC 0-5 (0-5) Urine WBC Not seen (0-5) Ur Epithelial Cells Not seen Amorphous Sediment Not seen Urine Bacteria Not seen Urine Mucus Moderate Meds: Medications Generic Name Dose Route Start Last Admin Trade Name Freq PRN Reason Stop Dose Admin Lactated Ringer's 1,000 mls @ 500 mls/hr 07/26/20 23:15 07/26/20 23:22 Ringers, Lactated IV 500 mls/hr ASDIRECTED BONITA Administration Sodium Chloride 10 ml 07/26/20 23:02 07/26/20 23:22 Saline Flush FLUSH 10 ml ASDIRECTED PRN Administration Keep Vein Open Discontinued Medications Generic Name Dose Route Start Last Admin Trade Name Freq PRN Reason Stop Dose Admin Ondansetron HCl 4 mg 07/26/20 23:04 07/26/20 23:25 Zofran IVPUSH 07/26/20 23:05 4 mg ONETIME ONE Administration Departure - Departure Time of Disposition: 01:35 Disposition: Admitted As Inpatient 64 Condition: Fair Clinical Impression: Weakness Nausea and vomiting Qualifiers: Vomiting type: unspecified Vomiting Intractability: non-intractable Qualified Code(s): R11.2 - Nausea with vomiting, unspecified - Discharge Information Referrals: PCP,None [Primary Care Provider] - Forms: ED Department Discharge Sepsis Event Note (ED) - Evaluation Sepsis Screening Result: No Definite Risk - Focused Exam Vital Signs: Vital Signs Temp Pulse Resp BP Pulse Ox 07/27/20 00:10 111 H 18 169/83 H 94 L 07/26/20 22:44 100.2 F 109 H 20 184/89 H 95 - My Orders Last 24 Hours: My Active Orders 07/26/20 23:02 Peripheral IV Care [RC] . DIRECTED Sodium Chloride 0.9% [Saline Flush] 10 ml FLUSH ASDIRECTED PRN Peripheral IV Insertion Adult [OM.PC] Urgent 07/26/20 23:15 Lactated Ringers [Ringers, Lactated] 1,000 ml IV ASDIRECTED 07/27/20 00:44 Abdomen 1V Flat [CR] Stat - Assessment/Plan Last 24 Hours: My Active Orders 07/26/20 23:02 Peripheral IV Care [RC] . DIRECTED Sodium Chloride 0.9% [Saline Flush] 10 ml FLUSH ASDIRECTED PRN Peripheral IV Insertion Adult [OM.PC] Urgent 07/26/20 23:15 Lactated Ringers [Ringers, Lactated] 1,000 ml IV ASDIRECTED 07/27/20 00:44 Abdomen 1V Flat [CR] Stat Plan: Assessment Acuity = acute Site and laterality = nausea vomiting weakness Etiology = unknown Manifestations = none Location of injury = Home Lab values = WBC elevated 14.7 consistent leukocytosis, lactic acid elevated 3.3 consistent with lactic acidosis troponin was negative urinalysis negative plain film the abdomen shows no acute process EKG demonstrates a tachycardic rhythm sinus no ST elevations or depressions Plan Call discussed case hospitalist on-call [phone] kindly agreed to come evaluate patient emergency department for admission This note was dictated using [employer]aitianshi voice recognition software please call with any questions on syntax or grammar.
[2020-07-26] MEDS ORDERED: Lactated Ringers 1,000 ML IV SCH (23:15)
[2020-07-27] MEDS ORDERED: Ondansetron 4 MG/2 ML SDV IV PRN (02:10)
[2020-07-27] MEDS ORDERED: Albuterol 0.083% 2.5 MG/3 ML Neb Soln NEB PRN (02:10)
[2020-07-27] MEDS ORDERED: oxyCODONE 5 MG Tab PO PRN (02:10)
[2020-07-27] MEDS ORDERED: LORazepam 2 MG/ML SDV IV PRN (02:10)
[2020-07-27] MEDS ORDERED: Sodium Chloride 0.9% 1,000 ML IV SCH (02:10)
[2020-07-27] MEDS ORDERED: Acetaminophen 325 MG Tab PO PRN (02:10)
[2020-07-27] MEDS ORDERED: Morphine 2 MG/ML SYRINGE IVPUSH PRN (02:10)
[2020-07-27] MEDS ORDERED: Nitroglycerin 0.4 MG Tab.SL SL PRN (02:10)
--- NOTE | 2020-07-27 02:18 | PCM.HP.2 ---
H&P History of Present Illness - General Date of Service: 07/26/20 Admit Problem/Dx: Admission Diagnosis/Problem Admission Diagnosis/Problem Gastroenteritis Source of Information: Long Term Records, Provider, RN History Limitations: Reports: Altered Mental Status (alzheimer's dementia) - History of Present Illness Initial Comments - Free Text/Narative: 84-year-old gentleman presents emergency department today via EMS services, he states he started with nausea and vomiting this afternoon has progressively gotten worse he is unable to keep any food products down feels nauseated right now. He does have a history of dementia sometimes communication is difficult with him he is also hard of hearing Lab values = WBC elevated 14.7 consistent leukocytosis, lactic acid elevated 3.3 consistent with lactic acidosis troponin was negative urinalysis negative plain film the abdomen shows no acute process EKG demonstrates a tachycardic rhythm sinus no ST elevations or depressions Onset of Symptoms: Reports: Today Duration of Symptoms: Reports: Hour(s): Location: Reports: Abdomen Quality: Reports: Other (nausea and vomiting) Severity: Moderate Improves with: Reports: Medication (given Zofran-vomiting resolved) Worsens with: Reports: None Associated Symptoms: Reports: Fever/Chills, Loss of Appetite, Nausea/Vomiting, Weakness - Related Data Allergies/Adverse Reactions: Allergies Allergy/AdvReac Type Severity Reaction Status Date / Time No Known Allergies Allergy Verified 07/26/20 22:43 Home Medications: Home Meds Aspirin [Adult Low Dose Aspirin EC] 81 mg PO DAILY 06/13/15 [History] Cholecalciferol (Vitamin D3) [Vitamin D3] 1,000 units PO DAILY 06/13/15 [History] Docusate Sodium/Sennosides [Senna Plus] 1 tab PO BID 06/13/15 [History] Losartan [Cozaar] 50 mg PO DAILY 06/13/15 [History] Nitroglycerin [Nitrostat] 1 tab PO ASDIRECTED PRN 06/13/15 [History] Omeprazole 20 mg PO DAILY 06/13/15 [History] Acetaminophen [Tylenol] 2 tab PO ASDIRECTED PRN 09/20/17 [History] Furosemide 40 mg PO DAILY 09/20/17 [History] Memantine [Namenda] 10 mg PO BID 09/20/17 [History] Sertraline HCl [Zoloft] 125 mg PO DAILY 04/09/20 [History] polyethylene glycoL 3350 [MiraLAX] 17 gm PO DAILY 04/09/20 [History] Past Medical History HEENT History: Reports: Hard of Hearing Cardiovascular History: Reports: CAD, Hypertension Other Cardiovascular History: atherosclerotic heart disease Gastrointestinal History: Reports: GERD Other Gastrointestinal History: reflux Musculoskeletal History: Reports: Back Pain, Chronic Neurological History: Reports: Alzheimers Disease Psychiatric History: Reports: Alzheimers Disease, Dementia, Depression Endocrine/Metabolic History: Reports: Obesity/BMI 30+ Dermatologic History: Reports: Other (See Below) Other Dermatologic History: Dry skin - Infectious Disease History Infectious Disease History: Reports: Chicken Pox - Past Surgical History HEENT Surgical History: Reports: Cataract Surgery Social & Family History - Family History Family Medical History: No Pertinent Family History Cardiac: Reports: CAD - Tobacco Use Tobacco Use Status *Q: Never Tobacco User - Caffeine Use Caffeine Use: Reports: Coffee - Recreational Drug Use Recreational Drug Use: No - Living Situation & Occupation Living situation: Reports: , Assisted Living Occupation: Disabled ([facility] H&P Review of Systems - Review of Systems: Review Of Systems: Unable To Obtain (Mr. Lopez unable to give history of present illness due to Alzheimer's dementia) Reason Not Obtained: dementia General: Reports: Weakness Exam - Exam Exam: See Below - Vital Signs Vital Signs: Last Vital Signs Temp 37.9 C 07/26/20 22:44 Pulse 111 H 07/27/20 00:10 Resp 18 07/27/20 00:10 BP 145/66 H 07/27/20 02:12 Pulse Ox 93 L 07/27/20 02:12 Weight: 129.274 kg - Exam Quality Assessment: DVT Prophylaxis General: Alert, Cooperative, Lethargic HEENT: Hearing Intact, Pupils Equal, Pupils Reactive. No: Mucosa Moist & [place] (mouth is dry) Neck: Supple, Trachea Midline Lungs: Clear to Auscultation, Normal Respiratory Effort Cardiovascular: Regular Rate, Regular Rhythm GI/Abdominal Exam: Normal Bowel Sounds, Soft, Non-Tender (Male) Exam: Deferred Rectal (Males) Exam: Deferred Extremities: Pedal Edema, Other (weakness) Peripheral Pulses: 2+: Radial (L), Radial (R) Skin: Warm, Dry, Intact Neurological: Other (weakness generalized) Neuro Extensive - Mental Status: Alert, Inattentive, Opens Eyes to Commands Neuro Extensive - Motor, Sensory, Reflexes: Motor/Sensory Deficits Psychiatric: Alert, Other (alzheimer's dementia) - Patient Data Lab Results Last 24 hrs: Laboratory Results - last 24 hr 07/26/20 07/26/20 07/26/20 Range/Units 23:16 23:16 23:16 WBC 14.7 H (4.5-11.0) K/uL RBC 5.67 (4.30-5.90) M/uL Hgb 14.8 D (12.0-15.0) g/dL Hct 45.5 (40.0-54.0) % MCV 80 (80-98) fL MCH 26 L (27-31) pg MCHC 33 (32-36) % Plt Count 205 (150-400) K/uL Neut % (Auto) 94 H (36-66) % Lymph % (Auto) 2 L (24-44) % [place] % (Auto) 4 (2-6) % Eos % (Auto) 0 L (2-4) % Baso % (Auto) 0 (0-1) % Sodium 138 L (140-148) mmol/L Potassium 4.2 (3.6-5.2) mmol/L Chloride 100 (100-108) mmol/L Carbon Dioxide 24 (21-32) mmol/L Anion Gap 18.2 H (5.0-14.0) mmol/L BUN 23 H (7-18) mg/dL Creatinine 1.1 (0.8-1.3) mg/dL Est Cr Clr Drug Dosing 51.34 mL/min Estimated GFR (MDRD) > 60 (>60) Glucose 219 H (74-106) mg/dL Lactic Acid 3.3 H (0.4-2.0) mmol/L Calcium 8.9 (8.5-10.1) mg/dL Total Bilirubin 0.4 (0.2-1.0) mg/dL AST 21 (15-37) U/L ALT 34 (12-78) U/L Alkaline Phosphatase 106 (46-116) U/L Troponin I < 0.017 (0.000-0.056) ng/mL Total Protein 7.1 (6.4-8.2) g/dL Albumin 3.6 (3.4-5.0) g/dL Globulin 3.5 (2.3-3.5) g/dL Albumin/Globulin Ratio 1.0 L (1.2-2.2) Lipase 135 (73-393) U/L Urine Color (YELLOW) Urine Appearance (CLEAR) Urine pH (5.0-8.0) Ur Specific [place] (1.008-1.030) Urine Protein (NEGATIVE) mg/dL Urine Glucose (UA) (NEGATIVE) mg/dL Urine Ketones (NEGATIVE) mg/dL Urine Occult Blood (NEGATIVE) Urine Nitrite (NEGATIVE) Urine Bilirubin (NEGATIVE) Urine Urobilinogen (0.2-1.0) EU/dL Ur Leukocyte Esterase (NEGATIVE) Urine RBC (0-5) Urine WBC (0-5) Ur Epithelial Cells Amorphous Sediment Urine Bacteria Urine Mucus 07/27/20 Range/Units 00:27 WBC (4.5-11.0) K/uL RBC (4.30-5.90) M/uL Hgb (12.0-15.0) g/dL Hct (40.0-54.0) % MCV (80-98) fL MCH (27-31) pg MCHC (32-36) % Plt Count (150-400) K/uL Neut % (Auto) (36-66) % Lymph % (Auto) (24-44) % [place] % (Auto) (2-6) % Eos % (Auto) (2-4) % Baso % (Auto) (0-1) % Sodium (140-148) mmol/L Potassium (3.6-5.2) mmol/L Chloride (100-108) mmol/L Carbon Dioxide (21-32) mmol/L Anion Gap (5.0-14.0) mmol/L BUN (7-18) mg/dL Creatinine (0.8-1.3) mg/dL Est Cr Clr Drug Dosing mL/min Estimated GFR (MDRD) (>60) Glucose (74-106) mg/dL Lactic Acid (0.4-2.0) mmol/L Calcium (8.5-10.1) mg/dL Total Bilirubin (0.2-1.0) mg/dL AST (15-37) U/L ALT (12-78) U/L Alkaline Phosphatase (46-116) U/L Troponin I (0.000-0.056) ng/mL Total Protein (6.4-8.2) g/dL Albumin (3.4-5.0) g/dL Globulin (2.3-3.5) g/dL Albumin/Globulin Ratio (1.2-2.2) Lipase (73-393) U/L Urine Color Yellow (YELLOW) Urine Appearance Slightly cloudy A (CLEAR) Urine pH 5.5 (5.0-8.0) Ur Specific [place] >= 1.030 (1.008-1.030) Urine Protein Negative (NEGATIVE) mg/dL Urine Glucose (UA) Negative (NEGATIVE) mg/dL Urine Ketones 15 H (NEGATIVE) mg/dL Urine Occult Blood Trace-intact H (NEGATIVE) Urine Nitrite Negative (NEGATIVE) Urine Bilirubin Negative (NEGATIVE) Urine Urobilinogen 0.2 (0.2-1.0) EU/dL Ur Leukocyte Esterase Negative (NEGATIVE) Urine RBC 0-5 (0-5) Urine WBC Not seen (0-5) Ur Epithelial Cells Not seen Amorphous Sediment Not seen Urine Bacteria Not seen Urine Mucus Moderate Result Diagrams: 07/26/20 23:16 07/26/20 23:16 Sepsis Event Note - Evaluation Sepsis Screening Result: No Definite Risk - Focused Exam Vital Signs: Vital Signs Temp Pulse Resp BP Pulse Ox 07/27/20 02:12 145/66 H 93 L 07/27/20 00:10 111 H 18 169/83 H 94 L 07/26/20 22:44 37.9 C 109 H 20 184/89 H 95 - Problem List (1) Gastroenteritis SNOMED Code(s): 21832365 ICD Code: K52.9 - NONINFECTIVE GASTROENTERITIS AND COLITIS, UNSPECIFIED Status: Acute Priority: High Current Visit: Yes (2) COVID-19 virus detected SNOMED Code(s): 0849203108259846 ICD Code: U07.1 - COVID-19 Status: Acute Priority: High Current Visit: Yes (3) Alzheimer's dementia SNOMED Code(s): 90914678 ICD Code: G30.9 - ALZHEIMER'S DISEASE, UNSPECIFIED; F02.80 - DEMENTIA IN OTH DISEASES CLASSD ELSWHR W/O BEHAVRL DISTURB Status: Chronic Priority: High Current Visit: Yes (4) Cardiovascular disease Status: Acute Priority: Low Current Visit: Yes (5) Hyperglycemia, unspecified SNOMED Code(s): 19315223 ICD Code: R73.9 - HYPERGLYCEMIA, UNSPECIFIED Status: Acute Priority: Low Current Visit: Yes Problem List Initiated/Reviewed/Updated: Yes Orders Last 24hrs: Active Orders 24 hr Category Date Time Status Cardiac Monitoring [RC] .As Directed Care 07/27/20 02:10 Active Intake and Output [RC] QSHIFT Care 07/27/20 02:10 Active Notify Provider Vital Signs [RC] ASDIRECTED Care 07/27/20 02:10 Active Oxygen Therapy [RC] PRN Care 07/27/20 02:10 Active Peripheral IV Care [RC] . DIRECTED Care 07/26/20 23:02 Active Pulse Oximetry [RC] PRN Care 07/27/20 02:10 Active RT Aerosol Therapy [RC] ASDIRECTED Care 07/27/20 02:10 Active Up With Assistance [RC] ASDIRECTED Care 07/27/20 02:10 Active VTE/DVT Education [RC] Per Unit Routine Care 07/27/20 02:10 Active Vital Signs [RC] Q4H Care 07/27/20 02:10 Active Full Liquid Diet [DIET] Diet 07/27/20 Breakfast Ordered Abdomen 1V Flat [CR] Stat Exams 07/27/20 00:44 Taken Chest 1V Frontal [CR] AM Exams 07/27/20 05:11 Ordered COVID-19/FLU A+B/RSV [MOLEC] Urgent Lab 07/27/20 01:48 Ordered Acetaminophen [TylenoL] Med 07/27/20 02:10 Active 650 mg PO Q4H PRN Albuterol [Proventil Neb Soln] Med 07/27/20 02:10 Active 2.5 mg NEB Q4H PRN Enoxaparin [Lovenox] Med 07/27/20 09:00 Active 40 mg SUBCUT DAILY Furosemide [Lasix] Med 07/27/20 09:00 Active 20 mg PO DAILY LORazepam [Ativan] Med 07/27/20 02:10 Active 1 mg IV Q6H PRN Losartan [Cozaar] Med 07/27/20 09:00 Active 50 mg PO DAILY Memantine [Namenda] Med 07/27/20 09:00 Active 10 mg PO BID Morphine Med 07/27/20 02:10 Active 2 mg IVPUSH Q2H PRN Nitroglycerin [Nitrostat] Med 07/27/20 02:10 Active 0.4 mg SL ASDIRECTED PRN Omeprazole [Omeprazole] Med 07/27/20 09:00 Active 20 mg PO DAILY Ondansetron [Zofran] Med 07/27/20 02:10 Active 4 mg IV Q4H PRN Sertraline HCl [Zoloft] Med 07/27/20 09:00 Active 125 mg PO DAILY Sodium Chloride 0.9% [Normal Saline] 1,000 ml Med 07/27/20 02:10 Active IV ASDIRECTED oxyCODONE Med 07/27/20 02:10 Active 5 mg PO Q4H PRN Resuscitation Status Routine Resus Stat 07/27/20 01:55 Ordered Medication Orders Acetaminophen (Tylenol) 650 mg PO Q4H PRN PRN Reason: Pain (Mild 1-3)/fever Albuterol (Proventil Neb Soln) 2.5 mg NEB Q4H PRN PRN Reason: Shortness Of Breath/wheezing Enoxaparin Sodium (Lovenox) 40 mg SUBCUT DAILY [facility] Furosemide (Lasix) 20 mg PO DAILY [facility] Sodium Chloride (Normal Saline) 1,000 mls @ 75 mls/hr IV ASDIRECTED [place] Lorazepam (Ativan) 1 mg IV Q6H PRN PRN Reason: Nausea/Vomiting Morphine Sulfate (Morphine) 2 mg IVPUSH Q2H PRN PRN Reason: Pain (severe 7-10) Nitroglycerin (Nitrostat) 0.4 mg SL ASDIRECTED PRN PRN Reason: Chest Pain Non-Formulary Medication (Losartan [Cozaar]) 50 mg PO DAILY [facility] Non-Formulary Medication (Memantine [Namenda]) 10 mg PO BID [facility] Non-Formulary Medication (Omeprazole [Omeprazole]) 20 mg PO DAILY [facility] Non-Formulary Medication (Sertraline Hcl [Zoloft]) 125 mg PO DAILY [facility] Ondansetron HCl (Zofran) 4 mg IV Q4H PRN PRN Reason: Nausea/Vomiting Oxycodone HCl (Oxycodone) 5 mg PO Q4H PRN PRN Reason: Pain (moderate 4-6) Assessment/Plan Comment:: ASSESSMENT AND PLAN - Gastroenteritis with nausea, vomiting, weakness. This is a 84 year old male presented to ER via EMS from [facility] for evaluation of weakness, nausea and vomiting. The staff report he has been sick since the afternoon worsen this evening. Mr. Lopez is unable to give report of present illness due to advance Alzheimer's dementia. Reviewed records from assisted living facility. He has received one Covid 19 vaccination on 06/21/2020. Assisted Living staff report Mr. Lopez had Covid 19 infection around [place] time and tested positive, date of testing is not available at this time. Per Nursing staff He fully recovered from his Covid 19 infection and is not in any precautions at the Assisted Living home. ER work up: Lab values = WBC elevated 14.7 consistent leukocytosis, lactic acid elevated 3.3 consistent with lactic acidosis troponin was negative urinalysis negative plain film the abdomen shows no acute process. EKG demonstrates a tachycardic rhythm sinus no ST elevations or depressions. Covid-19, influenza A&B, chest x-ray pending. Gastroenteritis with nausea and vomiting. Symptoms started this afternoon and worsen into the evening when he was sent to the ER for evaluation. -IV fluids 75ml/hr. x 1 liter then reassess -Pain and nausea management history of Covid 19 infection around [place] time, has recovered. He is currently not on any isolation precautions at [facility]. -add d-dimer, LDH, PT/INR, procalcitonin -chest x-ray in am. Hyperglycemia secondary to illness -glucose monitor before meals and at bedtime -low dose sliding scale coverage Alzheimer's Dementia -monitor for behaviors -continue outpatient medications Cardiovascular disease -continue outpatient mediations Maintenance issues - - DVT prophylaxis - Lovenox 40 mg subcut - GI prophylaxis -PO PPI - Nutrition- full liquid advance as tolerated - Blanca catheter -not indicated at this time CODE STATUS -DNR/DNI ADMISSION STATUS-this patient will be admitted to observation status, expect no more than a one night hospital stay for evaluation and management of problems as outlined above. Disposition -I would anticipate discharge [facility] after the hospital stay [facility] - Mortality Measure Prognosis:: Good - Mortality Measure Prognosis:: Good
[2020-07-27 02:38] LABS: CORONAVIRUS COVID-19 NAA POSITIVE (NEGATIVE)
[2020-07-27] MEDS ORDERED: Insulin Lispro 100 Unit/ML 3 ML KwikPen SUBCUT SCH (07:00)
[2020-07-27] MEDS ORDERED: Pantoprazole 40 MG Tab.CR PO SCH (07:30)
[2020-07-27] MEDS ORDERED: Enoxaparin 40 MG/0.4 ML Syringe SUBCUT SCH (09:00)
[2020-07-27] MEDS ORDERED: Non-Formulary Medication 1 Each (Losartan [Cozaar] 50 MG) PO SCH (09:00)
[2020-07-27] MEDS ORDERED: Furosemide 20 MG Tab PO SCH (09:00)
[2020-07-27] MEDS ORDERED: MEMANTINE 10 MG PO SCH ×2 (09:00)
[2020-07-27] MEDS ORDERED: SERTRALINE 50 MG PO SCH (09:00)
[2020-07-27] MEDS ORDERED: SERTRALINE HCL 125 MG PO SCH (09:00)
[2020-07-27] MEDS ORDERED: Losartan 50 MG **PTOM PO SCH (09:00)
[2020-07-27] MEDS ORDERED: Non-Formulary Medication 1 Each (Omeprazole [Omeprazole] 20 MG) PO SCH (09:00)
--- NOTE | 2020-07-27 09:05 | CR ---
CHEST: Portable 07/27/2020 at 2:28 AM CLINICAL HISTORY:Fever COMPARISON:CTA chest 2018 FINDINGS: The heart is enlarged. Pulmonary vascularity is normal. There are atherosclerotic changes in the aorta.. There are some streaky density in both lung bases which is likely some scarring and/or atelectasis. No infiltrates are seen. There are no pleural effusions. Impression: Cardiomegaly Streaky scarring and/or atelectasis in both lung bases similar to 2018
[2020-07-27] MEDS ORDERED: Furosemide 40 MG **PTOM PO SCH (10:00)
[2020-07-27 12:01] VITALS: BP 124/66; PULSE 62
--- NOTE | 2020-07-27 13:03 | PCM.DCSUM1 ---
Discharge Summary - Hospital Course Brief History: Mr. Lopez is an 84-year-old gentleman who was admitted to observation status through the emergency room for monitoring and management of nausea and vomiting secondary to gastroenteritis. - Discharge Data Discharge Date: 07/27/20 Discharge Disposition: DC/Tfer to [facility] Condition: Fair - Referral to Home Health Primary Care Physician: PCP None - Discharge Diagnosis/Problem(s) (1) Nausea and vomiting SNOMED Code(s): 23802916 ICD Code: R11.2 - NAUSEA WITH VOMITING, UNSPECIFIED Status: Acute Current Visit: Yes Qualifiers: Vomiting type: unspecified Vomiting Intractability: non-intractable Qualified Code(s): R11.2 - Nausea with vomiting, unspecified (2) Weakness SNOMED Code(s): 81133100 ICD Code: R53.1 - WEAKNESS Status: Acute Current Visit: Yes (3) Gastroenteritis SNOMED Code(s): 02957392 ICD Code: K52.9 - NONINFECTIVE GASTROENTERITIS AND COLITIS, UNSPECIFIED Status: Acute Priority: High Current Visit: Yes - Patient Summary/Data Hospital Course: Mr. Lopez is an 84-year-old gentleman who was admitted through the emergency department to observation status for management of nausea and vomiting secondary to gastroenteritis. On the day of admission had developed persistent nausea and vomiting, he was referred to the emergency department for further evaluation. Abdominal x-ray showed only nonspecific gas pattern with no evidence of free air or obstruction. White blood cell count was elevated, CRP only mildly elevated. Chest x-ray was clear showing no evidence of infiltrate and urinalysis showed no evidence of active infection. He was admitted to observation status and given IV fluids for hydration as well as medication for pain and nausea. By the following morning he denied any symptoms of abdominal pain, nausea, or vomiting. He was placed on a regular diet and tolerated breakfast as well as lunch without significant symptoms. Activity will be as tolerated and he will resume his usual diet. - Patient Instructions Diet: Usual Diet as Tolerated Activity: As Tolerated - Discharge Plan *PRESCRIPTION DRUG MONITORING PROGRAM REVIEWED*: Not Applicable *COPY OF PRESCRIPTION DRUG MONITORING REPORT IN PATIENT NAKIA: Not Applicable Home Medications: Home Meds Aspirin [Adult Low Dose Aspirin EC] 81 mg PO DAILY 06/13/15 [History] Cholecalciferol (Vitamin D3) [Vitamin D3] 1,000 units PO DAILY 06/13/15 [History] Docusate Sodium/Sennosides [Senna Plus] 1 tab PO BID 06/13/15 [History] Losartan [Cozaar] 50 mg PO DAILY 06/13/15 [History] Nitroglycerin [Nitrostat] 1 tab PO ASDIRECTED PRN 06/13/15 [History] Omeprazole 20 mg PO DAILY 06/13/15 [History] Acetaminophen [Tylenol] 2 tab PO ASDIRECTED PRN 09/20/17 [History] Furosemide 40 mg PO DAILY 09/20/17 [History] Memantine [Namenda] 10 mg PO BID 09/20/17 [History] Sertraline HCl [Zoloft] 125 mg PO DAILY 04/09/20 [History] polyethylene glycoL 3350 [MiraLAX] 17 gm PO DAILY 04/09/20 [History] Referrals: PCP,None [Primary Care Provider] - - Discharge Summary/Plan Comment DC Time >30 min.: No - Patient Data Vitals - Most Recent: Last Vital Signs Temp 98.1 F 07/27/20 11:59 Pulse 62 07/27/20 11:59 Resp 15 07/27/20 11:59 BP 124/66 07/27/20 11:59 Pulse Ox 95 07/27/20 11:59 Weight - Most Recent: 294 lb 8.601 oz I&O - Last 24 hours: Intake & Output 07/26/20 07/27/20 07/27/20 22:59 06:59 14:59 Intake Total 340 Balance 340 Lab Results - Last 24 hrs: Laboratory Results - last 24 hr 07/26/20 07/26/20 07/26/20 Range/Units 23:16 23:16 23:16 WBC 14.7 H (4.5-11.0) K/uL RBC 5.67 (4.30-5.90) M/uL Hgb 14.8 D (12.0-15.0) g/dL Hct 45.5 (40.0-54.0) % MCV 80 (80-98) fL MCH 26 L (27-31) pg MCHC 33 (32-36) % Plt Count 205 (150-400) K/uL Neut % (Auto) 94 H (36-66) % Lymph % (Auto) 2 L (24-44) % Dillon % (Auto) 4 (2-6) % Eos % (Auto) 0 L (2-4) % Baso % (Auto) 0 (0-1) % PT (9.5-12.0) sec INR (0.80-1.20) D-Dimer, Quantitative (0.0-500.0) ng/mL Sodium 138 L (140-148) mmol/L Potassium 4.2 (3.6-5.2) mmol/L Chloride 100 (100-108) mmol/L Carbon Dioxide 24 (21-32) mmol/L Anion Gap 18.2 H (5.0-14.0) mmol/L BUN 23 H (7-18) mg/dL Creatinine 1.1 (0.8-1.3) mg/dL Est Cr Clr Drug Dosing 51.34 mL/min Estimated GFR (MDRD) > 60 (>60) Glucose 219 H (74-106) mg/dL Lactic Acid 3.3 H (0.4-2.0) mmol/L Calcium 8.9 (8.5-10.1) mg/dL Total Bilirubin 0.4 (0.2-1.0) mg/dL AST 21 (15-37) U/L ALT 34 (12-78) U/L Alkaline Phosphatase 106 (46-116) U/L Lactate Dehydrogenase (85-227) U/L Troponin I < 0.017 (0.000-0.056) ng/mL C-Reactive Protein (0.0-0.3) mg/dL Total Protein 7.1 (6.4-8.2) g/dL Albumin 3.6 (3.4-5.0) g/dL Globulin 3.5 (2.3-3.5) g/dL Albumin/Globulin Ratio 1.0 L (1.2-2.2) Lipase 135 (73-393) U/L Procalcitonin ng/mL Urine Color (YELLOW) Urine Appearance (CLEAR) Urine pH (5.0-8.0) Ur Specific [place] (1.008-1.030) Urine Protein (NEGATIVE) mg/dL Urine Glucose (UA) (NEGATIVE) mg/dL Urine Ketones (NEGATIVE) mg/dL Urine Occult Blood (NEGATIVE) Urine Nitrite (NEGATIVE) Urine Bilirubin (NEGATIVE) Urine Urobilinogen (0.2-1.0) EU/dL Ur Leukocyte Esterase (NEGATIVE) Urine RBC (0-5) Urine WBC (0-5) Ur Epithelial Cells Amorphous Sediment Urine Bacteria Urine Mucus Influenza Type A RNA (NEGATIVE) RSV RNA (INAAT) (NEGATIVE) Influenza Type B RNA (NEGATIVE) SARS-CoV-2 RNA (JAEL) (NEGATIVE) 07/27/20 07/27/20 07/27/20 Range/Units 00:27 01:48 03:21 WBC (4.5-11.0) K/uL RBC (4.30-5.90) M/uL Hgb (12.0-15.0) g/dL Hct (40.0-54.0) % MCV (80-98) fL MCH (27-31) pg MCHC (32-36) % Plt Count (150-400) K/uL Neut % (Auto) (36-66) % Lymph % (Auto) (24-44) % Dillon % (Auto) (2-6) % Eos % (Auto) (2-4) % Baso % (Auto) (0-1) % PT 11.7 (9.5-12.0) sec INR 1.07 (0.80-1.20) D-Dimer, Quantitative (0.0-500.0) ng/mL Sodium (140-148) mmol/L Potassium (3.6-5.2) mmol/L Chloride (100-108) mmol/L Carbon Dioxide (21-32) mmol/L Anion Gap (5.0-14.0) mmol/L BUN (7-18) mg/dL Creatinine (0.8-1.3) mg/dL Est Cr Clr Drug Dosing mL/min Estimated GFR (MDRD) (>60) Glucose (74-106) mg/dL Lactic Acid (0.4-2.0) mmol/L Calcium (8.5-10.1) mg/dL Total Bilirubin (0.2-1.0) mg/dL AST (15-37) U/L ALT (12-78) U/L Alkaline Phosphatase (46-116) U/L Lactate Dehydrogenase (85-227) U/L Troponin I (0.000-0.056) ng/mL C-Reactive Protein (0.0-0.3) mg/dL Total Protein (6.4-8.2) g/dL Albumin (3.4-5.0) g/dL Globulin (2.3-3.5) g/dL Albumin/Globulin Ratio (1.2-2.2) Lipase (73-393) U/L Procalcitonin ng/mL Urine Color Yellow (YELLOW) Urine Appearance Slightly cloudy A (CLEAR) Urine pH 5.5 (5.0-8.0) Ur Specific [place] >= 1.030 (1.008-1.030) Urine Protein Negative (NEGATIVE) mg/dL Urine Glucose (UA) Negative (NEGATIVE) mg/dL Urine Ketones 15 H (NEGATIVE) mg/dL Urine Occult Blood Trace-intact H (NEGATIVE) Urine Nitrite Negative (NEGATIVE) Urine Bilirubin Negative (NEGATIVE) Urine Urobilinogen 0.2 (0.2-1.0) EU/dL Ur Leukocyte Esterase Negative (NEGATIVE) Urine RBC 0-5 (0-5) Urine WBC Not seen (0-5) Ur Epithelial Cells Not seen Amorphous Sediment Not seen Urine Bacteria Not seen Urine Mucus Moderate Influenza Type A RNA Negative (NEGATIVE) RSV RNA (INAAT) Negative (NEGATIVE) Influenza Type B RNA Negative (NEGATIVE) SARS-CoV-2 RNA (JAEL) Positive H (NEGATIVE) 07/27/20 07/27/20 07/27/20 Range/Units 03:24 03:24 03:24 WBC (4.5-11.0) K/uL RBC (4.30-5.90) M/uL Hgb (12.0-15.0) g/dL Hct (40.0-54.0) % MCV (80-98) fL MCH (27-31) pg MCHC (32-36) % Plt Count (150-400) K/uL Neut % (Auto) (36-66) % Lymph % (Auto) (24-44) % Dillon % (Auto) (2-6) % Eos % (Auto) (2-4) % Baso % (Auto) (0-1) % PT (9.5-12.0) sec INR (0.80-1.20) D-Dimer, Quantitative 1126.79 H (0.0-500.0) ng/mL Sodium (140-148) mmol/L Potassium (3.6-5.2) mmol/L Chloride (100-108) mmol/L Carbon Dioxide (21-32) mmol/L Anion Gap (5.0-14.0) mmol/L BUN (7-18) mg/dL Creatinine (0.8-1.3) mg/dL Est Cr Clr Drug Dosing mL/min Estimated GFR (MDRD) (>60) Glucose (74-106) mg/dL Lactic Acid (0.4-2.0) mmol/L Calcium (8.5-10.1) mg/dL Total Bilirubin (0.2-1.0) mg/dL AST (15-37) U/L ALT (12-78) U/L Alkaline Phosphatase (46-116) U/L Lactate Dehydrogenase 246 H (85-227) U/L Troponin I (0.000-0.056) ng/mL C-Reactive Protein 1.28 H (0.0-0.3) mg/dL Total Protein (6.4-8.2) g/dL Albumin (3.4-5.0) g/dL Globulin (2.3-3.5) g/dL Albumin/Globulin Ratio (1.2-2.2) Lipase (73-393) U/L Procalcitonin 0.17 ng/mL Urine Color (YELLOW) Urine Appearance (CLEAR) Urine pH (5.0-8.0) Ur Specific [place] (1.008-1.030) Urine Protein (NEGATIVE) mg/dL Urine Glucose (UA) (NEGATIVE) mg/dL Urine Ketones (NEGATIVE) mg/dL Urine Occult Blood (NEGATIVE) Urine Nitrite (NEGATIVE) Urine Bilirubin (NEGATIVE) Urine Urobilinogen (0.2-1.0) EU/dL Ur Leukocyte Esterase (NEGATIVE) Urine RBC (0-5) Urine WBC (0-5) Ur Epithelial Cells Amorphous Sediment Urine Bacteria Urine Mucus Influenza Type A RNA (NEGATIVE) RSV RNA (INAAT) (NEGATIVE) Influenza Type B RNA (NEGATIVE) SARS-CoV-2 RNA (JAEL) (NEGATIVE) Med Orders - Current: Current Medications Acetaminophen (Tylenol) 650 mg PO Q4H PRN PRN Reason: Pain (Mild 1-3)/fever Albuterol (Proventil Neb Soln) 2.5 mg NEB Q4H PRN PRN Reason: Shortness Of Breath/wheezing Enoxaparin Sodium (Lovenox) 40 mg SUBCUT DAILY [facility] Last Admin: 07/27/20 10:30 Dose: 40 mg Documented by: Furosemide (Lasix) 20 mg PO DAILY [facility] Last Admin: 07/27/20 10:30 Dose: 20 mg Documented by: Sodium Chloride (Normal Saline) 1,000 mls @ 75 mls/hr IV ASDIRECTED [facility] Last Admin: 07/27/20 03:40 Dose: 75 mls/hr Documented by: Insulin Human Lispro (Humalog) 0 unit SUBCUT QIDACANDBED [facility]; Protocol Last Admin: 07/27/20 09:00 Dose: Not Given Documented by: Lorazepam (Ativan) 1 mg IV Q6H PRN PRN Reason: Nausea/Vomiting Losartan Potassium (Cozaar) 50 mg PO DAILY [facility] Last Admin: 07/27/20 10:30 Dose: 50 mg Documented by: Memantine (Namenda) 10 mg PO BID [facility] Last Admin: 07/27/20 10:30 Dose: 10 mg Documented by: Morphine Sulfate (Morphine) 2 mg IVPUSH Q2H PRN PRN Reason: Pain (severe 7-10) Last Admin: 07/27/20 03:46 Dose: 2 mg Documented by: Nitroglycerin (Nitrostat) 0.4 mg SL ASDIRECTED PRN PRN Reason: Chest Pain Ondansetron HCl (Zofran) 4 mg IV Q4H PRN PRN Reason: Nausea/Vomiting Last Admin: 07/27/20 03:46 Dose: 4 mg Documented by: Oxycodone HCl (Oxycodone) 5 mg PO Q4H PRN PRN Reason: Pain (moderate 4-6) Omeprazole 20mg (Ptom) 0 each PO ACBREAKFAST [facility] Last Admin: 07/27/20 09:30 Dose: 20 each Documented by: Sertraline HCl (Zoloft) 125 mg PO DAILY [facility] Last Admin: 07/27/20 10:30 Dose: 125 mg Documented by: Discontinued Medications Lactated Ringer's (Ringers, Lactated) 1,000 mls @ 500 mls/hr IV ASDIRECTED [facility] Last Admin: 07/26/20 23:22 Dose: 500 mls/hr Documented by: Non-Formulary Medication (Losartan [Cozaar]) 50 mg PO DAILY [facility] Non-Formulary Medication (Memantine [Namenda]) 10 mg PO BID [facility] Non-Formulary Medication (Omeprazole [Omeprazole]) 20 mg PO DAILY [facility] Non-Formulary Medication (Sertraline Hcl [Zoloft]) 125 mg PO DAILY [facility] Ondansetron HCl (Zofran) 4 mg IVPUSH ONETIME ONE Stop: 07/26/20 23:05 Last Admin: 07/26/20 23:25 Dose: 4 mg Documented by: Pantoprazole Sodium (Protonix) 40 mg PO ACBREAKFAST [facility] Last Admin: 07/27/20 09:25 Dose: 40 mg Documented by: Sodium Chloride (Saline Flush) 10 ml FLUSH ASDIRECTED PRN PRN Reason: Keep Vein Open Last Admin: 07/26/20 23:22 Dose: 10 ml Documented by: - Exam General: Reports: Alert, Cooperative, No Acute Distress Lungs: Reports: Clear to Auscultation, Normal Respiratory Effort Cardiovascular: Reports: Regular Rate, Regular Rhythm, No Murmurs GI/Abdominal Exam: Soft, Non-Tender, No Organomegaly, No Distention Extremities: Non-Tender, No Pedal Edema
[2020-07-28] MEDS ORDERED: OMEPRAZOLE 20MG **PTOM PO SCH (07:30)
--- NOTE | 2020-07-28 08:58 | CR ---
Abdomen 1V Flat CLINICAL HISTORY: Pain FINDINGS: The right lateral abdomen is off the image field. Small intestinal gas pattern is nonacute. There is some gas and feces in the colon. IMPRESSION: Nonacute intestinal gas pattern
== END 2020-07-27 15:57 ==
LOC: JP.ED 22:28 → JP.ICU 07-27 01:52
PROVIDERS: ADMIT Hospitalist; ATTEND Hospitalist
DX: U07.1 COVID-19 (principal); K52.9 Noninfective gastroenteritis and colitis, unspecified; D72.829 Elevated white blood cell count, unspecified; K21.9 Gastro-esophageal reflux disease without esophagitis; I11.0 Hypertensive heart disease with heart failure; R91.8 Other nonspecific abnormal finding of lung field; I50.9 Heart failure, unspecified; I25.10 Atherosclerotic heart disease of native coronary artery without angina pectoris; R73.9 Hyperglycemia, unspecified; M54.9 Dorsalgia, unspecified; G89.29 Other chronic pain; G30.9 Alzheimer's disease, unspecified; F02.80 Dementia in other diseases classified elsewhere, unspecified severity, without behavioral disturbance, psychotic disturbance, mood disturbance, and anxiety; E66.9 Obesity, unspecified; Z68.41 Body mass index [BMI] 40.0-44.9, adult; Z79.82 Long term (current) use of aspirin; Z79.899 Other long term (current) drug therapy; Z98.890 Other specified postprocedural states
CPT/HCPCS: 0241U; 36415; 71045; 74018; 80053; 81001; 83605; 83615; 83690; 84145; 84484; 85025; 85379; 85610; 86140; 96372; 96374; 96375; 96376; 99235; 99284; 99285; A9270; G0378; J1650; J2270; J2405; J7030; J7120; J1815

== ENCOUNTER 2021-09-24 14:32 | Emergency (ER) | payer MEDICARE ==
[2021-09-24] MEDS ORDERED: Bacitracin Oint 1 GM U/D Packet TOP ONE (15:20)
[2021-09-24] MEDS ORDERED: Lidocaine 1% 20 ML MDV INJECT ONE (15:20)
[2021-09-24 15:22] VITALS: BP 181/98; PULSE 66
== END 2021-09-24 16:18 | disposition home or self-care (01) ==
LOC: JP.ED 14:32
DX: S01.01XA Laceration without foreign body of scalp, initial encounter (principal); I25.10 Atherosclerotic heart disease of native coronary artery without angina pectoris; I10 Essential (primary) hypertension; K21.9 Gastro-esophageal reflux disease without esophagitis; E66.9 Obesity, unspecified; Z68.41 Body mass index [BMI] 40.0-44.9, adult; Z79.82 Long term (current) use of aspirin; Z79.899 Other long term (current) drug therapy; W18.09XA Striking against other object with subsequent fall, initial encounter
CPT/HCPCS: 12002; 12004; 99281; 99282-25

== ENCOUNTER 2023-03-20 14:19 | Emergency (ER) | payer MEDICARE ==
[2023-03-20 15:10] VITALS: BP 148/87; PULSE 80
[2023-03-20] MEDS ORDERED: Amoxicillin/Clavulanate K 875-125 MG Tab PO ONE (15:53)
[2023-03-20 16:10] LABS: BASOPHILS ABSOLUTE AUTO 0.04 K/uL (0.00-0.10); BASOPHILS PERCENT AUTO 0.3 % (0.1-1.3); EOSINOPHILS ABSOLUTE AUTO 0.22 K/uL (0.00-0.40); EOSINOPHILS PERCENT AUTO 1.9 % (0.0-5.4); HEMATOCRIT 38.9 % (38.4-49.7); HEMOGLOBIN 12.3 g/dL (12.9-16.9); IMMATURE GRAN ABSOLUTE AUTO 0.03 K/uL (0.00-0.23); IMMATURE GRAN PERCENT AUTO 0.3 % (0.0-0.7); LYMPHOCYTES ABSOLUTE AUTO 1.44 K/uL (0.8-3.3); LYMPHOCYTES PERCENT AUTO 12.5 % (11.4-47.7); MEAN CORPUSCULAR HEMOGLOBIN 25.9 pg (31.6-35.5); MEAN CORPUSCULAR HGB CONC 31.6 g/dL (31.6-35.5); MEAN CORPUSCULAR VOLUME 81.9 fL (81.4-99.0); MONOCYTES PERCENT AUTO 8.7 % (3.3-12.6); NEUTROPHILS ABSOLUTE AUTO 8.82 K/uL (1.0-7.6); NEUTROPHILS PERCENT AUTO 76.3 % (40.0-78.1); PLATELET COUNT,PLT 213 K/uL (130-375); RED BLOOD CELL COUNT 4.75 M/uL (4.14-5.76); WHITE BLOOD CELL COUNT,WBC 11.6 K/uL (3.2-11.0)
[2023-03-20 16:25] LABS: ANION GAP 10.4 mmol/L (5.0-14.0); CALCIUM 8.5 mg/dL (8.5-10.1); CREATININE 0.9 mg/dL (0.8-1.3); EST CRCL DRUG DOSING (CG) 51.89 mL/min
[2023-03-20] MEDS ORDERED: Amoxicillin/Clavulanate K 875-125 MG Tab ONE (19:28)
== END 2023-03-20 20:48 | disposition home or self-care (01) ==
LOC: JP.ED 14:19
DX: J18.9 Pneumonia, unspecified organism (principal); J90 Pleural effusion, not elsewhere classified; G30.9 Alzheimer's disease, unspecified; I11.0 Hypertensive heart disease with heart failure; I50.9 Heart failure, unspecified; I25.10 Atherosclerotic heart disease of native coronary artery without angina pectoris; E66.9 Obesity, unspecified; Z68.41 Body mass index [BMI] 40.0-44.9, adult; Z20.822 Contact with and (suspected) exposure to COVID-19; Z79.82 Long term (current) use of aspirin; Z79.899 Other long term (current) drug therapy
CPT/HCPCS: 36415; 71045; 71250; 80048; 85025; 99284; A9270; U0002

== ENCOUNTER 2023-04-30 03:59 | Inpatient (IN) | payer MEDICARE ==
[2023-04-30] MEDS ORDERED: Diltiazem 25 MG/5 ML SDV IVPUSH ONE (04:18)
[2023-04-30 04:36] LABS: MEAN CORPUSCULAR HEMOGLOBIN 25.1 pg (31.6-35.5); MEAN CORPUSCULAR HGB CONC 30.8 g/dL (31.6-35.5); MEAN CORPUSCULAR VOLUME 81.4 fL (81.4-99.0); PLATELET COUNT,PLT 196 K/uL (130-375); RED BLOOD CELL COUNT 4.79 M/uL (4.14-5.76); WHITE BLOOD CELL COUNT,WBC 19.1 K/uL (3.2-11.0)
[2023-04-30 04:47] LABS: LYMPHOCYTES ABSOLUTE MAN 1.91 K/uL (0.8-3.3); LYMPHOCYTES PERCENT MAN 10 % (24-44); MONOCYTES ABSOLUTE MAN 0.96 K/uL (0.20-0.90); MONOCYTES PERCENT MAN 5 % (2-6); NEUTROPHILS ABSOLUTE MAN 16.24 K/uL (1.0-7.6); SEG NEUTROPHILS PERCENT MAN 85 % (36-66)
[2023-04-30 04:48] LABS: ATYPICAL LYMPHOCYTES RARE
[2023-04-30 04:56] LABS: ALANINE AMINOTRANSFERASE,ALT 113 U/L (12-78); ALBUMIN 3.2 g/dL (3.4-5.0); ALKALINE PHOSPHATASE 91 U/L (46-116); ASPARTATE AMNIOTRANSFERASE,AST 119 U/L (15-37); BILIRUBIN TOTAL 1.3 mg/dL (0.2-1.0); BLOOD UREA NITROGEN,BUN 38 mg/dL (7-18); CALCIUM 8.7 mg/dL (8.5-10.1); CARBON DIOXIDE,CO2 24 mmol/L (21-32); CHLORIDE,CL 103 mmol/L (100-108); CREATININE 1.7 mg/dL (0.8-1.3); ESTIMATED GFR 38 mL/min (>60); GLUCOSE RANDOM 185 mg/dL (74-106); POTASSIUM,K 4.3 mmol/L (3.6-5.2); PROTEIN TOTAL,TP 6.3 g/dL (6.4-8.2); SODIUM,NA 139 mmol/L (140-148)
[2023-04-30 04:57] LABS: ANION GAP 16.3 mmol/L (5.0-14.0)
[2023-04-30 04:58] LABS: CORONAVIRUS COVID-19 NAA NEGATIVE (NEGATIVE); INFLUENZA A NAA NEGATIVE (NEGATIVE); INFLUENZA B NAA NEGATIVE (NEGATIVE); RESPIRATORY SYNCYTIAL VIR NAA NEGATIVE (NEGATIVE)
[2023-04-30 05:38] LABS: LACTIC ACID 3.1 mmol/L (0.4-2.0)
[2023-04-30] MEDS ORDERED: Cefepime 2 GM in Sodium Chloride 0.9% 50 ML IV ONE (06:03)
[2023-04-30] MEDS: Sodium Chloride 0.9% 1,000 ML IV SCH ×4 (06:14→18:31)
[2023-04-30] MEDS ORDERED: Sodium Chloride 0.9% 500 ML IV ONE (08:06)
[2023-04-30] MEDS ORDERED: Sodium Chloride 0.9% 10 ML Syringe FLUSH PRN (10:11)
[2023-04-30] MEDS ORDERED: Acetaminophen 325 MG Tab PO PRN (10:11)
[2023-04-30] MEDS ORDERED: Magnesium Hydroxide 400 MG/5 ML Susp 30 ML Cup PO PRN (10:11)
[2023-04-30] MEDS ORDERED: Polyethylene Glycol 3350 Powder 17 GM Packet PO PRN (10:11)
[2023-04-30] MEDS ORDERED: Ondansetron 4 MG/2 ML SDV IV PRN (10:11)
[2023-04-30] MEDS: Enoxaparin 30 MG/0.3 ML Syringe SUBCUT SCH (10:53)
[2023-04-30] MEDS: Polyethylene Glycol 3350 Powder 17 GM Packet PO SCH (10:53)
[2023-04-30] MEDS: Pantoprazole 40 MG Tab.CR PO SCH (10:53)
[2023-04-30] MEDS: Aspirin 81 MG Tab.EC PO SCH (10:53)
[2023-04-30] MEDS: Sertraline 25 MG Tab PO SCH (10:53)
[2023-04-30] MEDS: Memantine 5 MG Tab PO SCH ×2 (10:54→21:00)
[2023-04-30] MEDS: Losartan 50 MG Tab PO SCH (10:54)
[2023-04-30] MEDS: Sennosides 8.6 MG Tab PO SCH (10:55)
[2023-04-30] MEDS: cefTRIAXone 1 GM in Sodium Chloride 0.9% 50 ML IV SCH (11:09)
[2023-04-30] MEDS: Doxycycline 100 MG in Sodium Chloride 0.9% 100 ML IV SCH ×2 (11:09→23:27)
[2023-04-30 17:24] LABS: APPEARANCE,URINE SLIGHTLY CLOUDY (CLEAR); BILIRUBIN,URINE SMALL (NEGATIVE); COLOR,URINE ORANGE (YELLOW); GLUCOSE,URINE NEGATIVE (NEGATIVE); KETONES,URINE NEGATIVE (NEGATIVE); LEUKOCYTE ESTERASE,URINE NEGATIVE (NEGATIVE); NITRITE,URINE NEGATIVE (NEGATIVE); OCCULT BLOOD,URINE LARGE (NEGATIVE); PH,URINE 5.5 (5.0-8.0); PROTEIN,URINE 100 mg/dL (NEGATIVE); UROBILINOGEN,URINE 0.2 EU/dL (0.2-1.0)
[2023-04-30 17:31] LABS: AMORPHOUS SEDIMENT,URINE MODERATE; BACTERIA,URINE MODERATE; EPITHELIAL CELLS,URINE FEW; MUCUS,URINE FEW; RBC,URINE >100 (0-5)
[2023-04-30] MEDS ORDERED: Diltiazem IR 30 MG Tab PO ONE (19:21)
[2023-04-30] MEDS: Melatonin 3 MG Tab PO SCH (21:00)
[2023-05-01] MEDS: Diltiazem IR 30 MG Tab PO SCH ×4 (03:24→20:16)
[2023-05-01] MEDS: Sodium Chloride 0.9% 1,000 ML IV SCH ×2 (04:06→07:34)
[2023-05-01 05:26] LABS: BASOPHILS PERCENT AUTO 0.1 % (0.1-1.3); HEMATOCRIT 39.5 % (38.4-49.7); HEMOGLOBIN 12.2 g/dL (12.9-16.9); IMMATURE GRAN ABSOLUTE AUTO 0.17 K/uL (0.00-0.23); IMMATURE GRAN PERCENT AUTO 0.8 % (0.0-0.7); LYMPHOCYTES ABSOLUTE AUTO 1.85 K/uL (0.8-3.3); LYMPHOCYTES PERCENT AUTO 8.2 % (11.4-47.7); MEAN CORPUSCULAR HGB CONC 30.9 g/dL (31.6-35.5); MEAN CORPUSCULAR VOLUME 80.9 fL (81.4-99.0); MONOCYTES ABSOLUTE AUTO 1.64 K/uL (0.20-0.90); MONOCYTES PERCENT AUTO 7.3 % (3.3-12.6); NEUTROPHILS ABSOLUTE AUTO 18.81 K/uL (1.0-7.6); NEUTROPHILS PERCENT AUTO 83.6 % (40.0-78.1); PLATELET COUNT,PLT 181 K/uL (130-375); RED BLOOD CELL COUNT 4.88 M/uL (4.14-5.76); WHITE BLOOD CELL COUNT,WBC 22.5 K/uL (3.2-11.0)
[2023-05-01 05:28] LABS: BASOPHILS ABSOLUTE AUTO 0.02 K/uL (0.00-0.10); EOSINOPHILS ABSOLUTE AUTO 0.01 K/uL (0.00-0.40)
[2023-05-01 05:42] LABS: A/G RATIO 0.9 (1.2-2.2); ALANINE AMINOTRANSFERASE,ALT 259 U/L (12-78); ALBUMIN 2.9 g/dL (3.4-5.0); ALKALINE PHOSPHATASE 80 U/L (46-116); ASPARTATE AMNIOTRANSFERASE,AST 275 U/L (15-37); BILIRUBIN TOTAL 1.2 mg/dL (0.2-1.0); BLOOD UREA NITROGEN,BUN 49 mg/dL (7-18); CALCIUM 8.4 mg/dL (8.5-10.1); CARBON DIOXIDE,CO2 23 mmol/L (21-32); CHLORIDE,CL 103 mmol/L (100-108); CREATININE 1.7 mg/dL (0.8-1.3); EST CRCL DRUG DOSING (CG) 32.38 mL/min; ESTIMATED GFR 38 mL/min (>60); GLUCOSE RANDOM 149 mg/dL (74-106); MAGNESIUM 2.3 mg/dL (1.8-2.4); POTASSIUM,K 4.6 mmol/L (3.6-5.2); PROTEIN TOTAL,TP 6.2 g/dL (6.4-8.2); SODIUM,NA 137 mmol/L (140-148)
[2023-05-01 05:46] LABS: ANION GAP 15.6 mmol/L (5.0-14.0)
[2023-05-01] MEDS ORDERED: Sodium Chloride 0.9% 500 ML IV ONE (06:13)
[2023-05-01] MEDS: Pantoprazole 40 MG Tab.CR PO SCH (07:37)
[2023-05-01] MEDS: Enoxaparin 30 MG/0.3 ML Syringe SUBCUT SCH (09:12)
[2023-05-01] MEDS: Polyethylene Glycol 3350 Powder 17 GM Packet PO SCH (09:12)
[2023-05-01] MEDS: Sennosides 8.6 MG Tab PO SCH (09:12)
[2023-05-01] MEDS: Aspirin 81 MG Tab.EC PO SCH (09:12)
[2023-05-01] MEDS: Memantine 5 MG Tab PO SCH ×2 (09:12→20:16)
[2023-05-01] MEDS: Losartan 50 MG Tab PO SCH (09:12)
[2023-05-01] MEDS: Sertraline 25 MG Tab PO SCH (09:12)
[2023-05-01] MEDS: Doxycycline 100 MG in Sodium Chloride 0.9% 100 ML IV SCH ×2 (11:09→22:29)
[2023-05-01] MEDS: cefTRIAXone 1 GM in Sodium Chloride 0.9% 50 ML IV SCH (12:13)
[2023-05-01] MEDS: Melatonin 3 MG Tab PO SCH (20:16)
[2023-05-02] MEDS: Diltiazem IR 30 MG Tab PO SCH ×4 (02:11→20:07)
[2023-05-02 06:05] LABS: BASOPHILS ABSOLUTE AUTO 0.03 K/uL (0.00-0.10); BASOPHILS PERCENT AUTO 0.1 % (0.1-1.3); HEMATOCRIT 39.3 % (38.4-49.7); HEMOGLOBIN 12.1 g/dL (12.9-16.9); IMMATURE GRAN ABSOLUTE AUTO 0.21 K/uL (0.00-0.23); LYMPHOCYTES ABSOLUTE AUTO 1.23 K/uL (0.8-3.3); LYMPHOCYTES PERCENT AUTO 5.6 % (11.4-47.7); MEAN CORPUSCULAR HEMOGLOBIN 24.9 pg (31.6-35.5); MEAN CORPUSCULAR HGB CONC 30.8 g/dL (31.6-35.5); MEAN CORPUSCULAR VOLUME 80.9 fL (81.4-99.0); MONOCYTES PERCENT AUTO 7.7 % (3.3-12.6); NEUTROPHILS ABSOLUTE AUTO 18.78 K/uL (1.0-7.6); NEUTROPHILS PERCENT AUTO 85.6 % (40.0-78.1); PLATELET COUNT,PLT 174 K/uL (130-375); RED BLOOD CELL COUNT 4.86 M/uL (4.14-5.76)
[2023-05-02 06:26] LABS: A/G RATIO 0.8 (1.2-2.2); ALANINE AMINOTRANSFERASE,ALT 343 U/L (12-78); ALBUMIN 2.8 g/dL (3.4-5.0); ALKALINE PHOSPHATASE 93 U/L (46-116); ASPARTATE AMNIOTRANSFERASE,AST 257 U/L (15-37); BILIRUBIN TOTAL 0.8 mg/dL (0.2-1.0); BLOOD UREA NITROGEN,BUN 55 mg/dL (7-18); CARBON DIOXIDE,CO2 23 mmol/L (21-32); CHLORIDE,CL 102 mmol/L (100-108); CREATININE 1.5 mg/dL (0.8-1.3); ESTIMATED GFR 44 mL/min (>60); GLUCOSE RANDOM 178 mg/dL (74-106); POTASSIUM,K 4.4 mmol/L (3.6-5.2); PROTEIN TOTAL,TP 6.5 g/dL (6.4-8.2); SODIUM,NA 137 mmol/L (140-148)
[2023-05-02 06:30] LABS: ANION GAP 16.4 mmol/L (5.0-14.0)
[2023-05-02] MEDS: Pantoprazole 40 MG Tab.CR PO SCH (07:34)
[2023-05-02] MEDS: Aspirin 81 MG Tab.EC PO SCH (09:19)
[2023-05-02] MEDS: Enoxaparin 30 MG/0.3 ML Syringe SUBCUT SCH (09:20)
[2023-05-02] MEDS: Losartan 50 MG Tab PO SCH (09:20)
[2023-05-02] MEDS: Sennosides 8.6 MG Tab PO SCH (09:21)
[2023-05-02] MEDS: Polyethylene Glycol 3350 Powder 17 GM Packet PO SCH (09:21)
[2023-05-02] MEDS: Memantine 5 MG Tab PO SCH ×2 (09:21→20:07)
[2023-05-02] MEDS: Sertraline 25 MG Tab PO SCH (09:21)
[2023-05-02] MEDS: Ampicillin/Sulbactam Na 1.5 GM in Sodium Chloride 0.9% 50 ML IV SCH ×3 (11:14→22:08)
[2023-05-02] MEDS: Albuterol/Ipratropium 3.0-0.5 MG/3 ML Neb Soln NEB PRN (11:23)
[2023-05-02] MEDS: Doxycycline 100 MG in Sodium Chloride 0.9% 100 ML IV SCH ×2 (12:10→22:51)
[2023-05-02] MEDS ORDERED: Furosemide 40 MG/4 ML VIAL IVPUSH ONE (15:15)
[2023-05-02] MEDS: Melatonin 3 MG Tab PO SCH ×2 (20:07→20:17)
[2023-05-03] MEDS: Diltiazem IR 30 MG Tab PO SCH ×4 (01:35→20:28)
[2023-05-03] MEDS: Ampicillin/Sulbactam Na 1.5 GM in Sodium Chloride 0.9% 50 ML IV SCH ×4 (04:23→22:12)
[2023-05-03 05:34] LABS: BASOPHILS ABSOLUTE AUTO 0.04 K/uL (0.00-0.10); BASOPHILS PERCENT AUTO 0.2 % (0.1-1.3); EOSINOPHILS ABSOLUTE AUTO 0.06 K/uL (0.00-0.40); EOSINOPHILS PERCENT AUTO 0.3 % (0.0-5.4); HEMATOCRIT 40.7 % (38.4-49.7); HEMOGLOBIN 12.4 g/dL (12.9-16.9); IMMATURE GRAN ABSOLUTE AUTO 0.25 K/uL (0.00-0.23); IMMATURE GRAN PERCENT AUTO 1.1 % (0.0-0.7); LYMPHOCYTES ABSOLUTE AUTO 1.01 K/uL (0.8-3.3); LYMPHOCYTES PERCENT AUTO 4.6 % (11.4-47.7); MEAN CORPUSCULAR HEMOGLOBIN 24.9 pg (31.6-35.5); MEAN CORPUSCULAR HGB CONC 30.5 g/dL (31.6-35.5); MEAN CORPUSCULAR VOLUME 81.9 fL (81.4-99.0); MONOCYTES ABSOLUTE AUTO 1.72 K/uL (0.20-0.90); MONOCYTES PERCENT AUTO 7.9 % (3.3-12.6); NEUTROPHILS ABSOLUTE AUTO 18.75 K/uL (1.0-7.6); NEUTROPHILS PERCENT AUTO 85.9 % (40.0-78.1); PLATELET COUNT,PLT 196 K/uL (130-375); RED BLOOD CELL COUNT 4.97 M/uL (4.14-5.76); WHITE BLOOD CELL COUNT,WBC 21.8 K/uL (3.2-11.0)
[2023-05-03 05:49] LABS: A/G RATIO 0.7 (1.2-2.2); ALANINE AMINOTRANSFERASE,ALT 264 U/L (12-78); ALBUMIN 2.6 g/dL (3.4-5.0); ALKALINE PHOSPHATASE 89 U/L (46-116); ASPARTATE AMNIOTRANSFERASE,AST 129 U/L (15-37); BILIRUBIN TOTAL 1.1 mg/dL (0.2-1.0); BLOOD UREA NITROGEN,BUN 61 mg/dL (7-18); CARBON DIOXIDE,CO2 20 mmol/L (21-32); CHLORIDE,CL 104 mmol/L (100-108); CREATININE 1.5 mg/dL (0.8-1.3); ESTIMATED GFR 44 mL/min (>60); GLUCOSE RANDOM 190 mg/dL (74-106); POTASSIUM,K 4.2 mmol/L (3.6-5.2); PROTEIN TOTAL,TP 6.5 g/dL (6.4-8.2); SODIUM,NA 138 mmol/L (140-148)
[2023-05-03 05:50] LABS: ANION GAP 18.2 mmol/L (5.0-14.0)
[2023-05-03] MEDS: Aspirin 81 MG Tab.EC PO SCH (09:42)
[2023-05-03] MEDS: Pantoprazole 40 MG Tab.CR PO SCH (09:42)
[2023-05-03] MEDS: Losartan 50 MG Tab PO SCH (09:42)
[2023-05-03] MEDS: Memantine 5 MG Tab PO SCH ×2 (09:42→21:12)
[2023-05-03] MEDS: Sennosides 8.6 MG Tab PO SCH (09:42)
[2023-05-03] MEDS: Polyethylene Glycol 3350 Powder 17 GM Packet PO SCH (09:42)
[2023-05-03] MEDS: Sertraline 25 MG Tab PO SCH (09:43)
[2023-05-03] MEDS: Doxycycline 100 MG in Sodium Chloride 0.9% 100 ML IV SCH (10:40)
[2023-05-03] MEDS: Enoxaparin 30 MG/0.3 ML Syringe SUBCUT SCH (10:48)
[2023-05-03] MEDS ORDERED: Sodium Chloride 0.9% 1,000 ML IV SCH (13:00)
[2023-05-03] MEDS ORDERED: Furosemide 40 MG/4 ML VIAL IVPUSH ONE (13:00)
[2023-05-03] MEDS: Diltiazem 100 MG in Sodium Chloride 0.9% 100 ML IV SCH (14:38)
[2023-05-03] MEDS: Haloperidol Lactate 5 MG/ML SDV IVPUSH PRN ×2 (16:27→21:31)
[2023-05-03] MEDS: Azithromycin 500 MG in Sodium Chloride 0.9% 250 ML IV SCH (19:17)
[2023-05-03] MEDS: Morphine 2 MG/ML SYRINGE IVPUSH PRN ×2 (19:53→22:10)
[2023-05-03] MEDS: Melatonin 3 MG Tab PO SCH (21:12)
[2023-05-04] MEDS: Morphine 2 MG/ML SYRINGE IVPUSH PRN ×6 (00:57→20:21)
[2023-05-04] MEDS: Diltiazem IR 30 MG Tab PO SCH ×4 (02:15→21:29)
[2023-05-04] MEDS: Haloperidol Lactate 5 MG/ML SDV IVPUSH PRN ×5 (04:08→21:38)
[2023-05-04] MEDS: Ampicillin/Sulbactam Na 1.5 GM in Sodium Chloride 0.9% 50 ML IV SCH ×4 (04:13→22:44)
[2023-05-04 05:52] LABS: HEMATOCRIT 40.6 % (38.4-49.7); HEMOGLOBIN 12.4 g/dL (12.9-16.9); MEAN CORPUSCULAR HEMOGLOBIN 25.2 pg (31.6-35.5); MEAN CORPUSCULAR HGB CONC 30.5 g/dL (31.6-35.5); MEAN CORPUSCULAR VOLUME 82.5 fL (81.4-99.0); RED BLOOD CELL COUNT 4.92 M/uL (4.14-5.76); WHITE BLOOD CELL COUNT,WBC 19.7 K/uL (3.2-11.0)
[2023-05-04 06:09] LABS: A/G RATIO 0.7 (1.2-2.2); ALANINE AMINOTRANSFERASE,ALT 206 U/L (12-78); ALBUMIN 2.5 g/dL (3.4-5.0); ALKALINE PHOSPHATASE 76 U/L (46-116); ANION GAP 12.3 mmol/L (5.0-14.0); ASPARTATE AMNIOTRANSFERASE,AST 102 U/L (15-37); BILIRUBIN TOTAL 1.2 mg/dL (0.2-1.0); BLOOD UREA NITROGEN,BUN 70 mg/dL (7-18); CALCIUM 8.8 mg/dL (8.5-10.1); CARBON DIOXIDE,CO2 22 mmol/L (21-32); CHLORIDE,CL 108 mmol/L (100-108); CREATININE 1.4 mg/dL (0.8-1.3); EST CRCL DRUG DOSING (CG) 39.32 mL/min; ESTIMATED GFR 48 mL/min (>60); GLUCOSE RANDOM 175 mg/dL (74-106); POTASSIUM,K 4.4 mmol/L (3.6-5.2); SODIUM,NA 142 mmol/L (140-148)
[2023-05-04] MEDS: Pantoprazole 40 MG Tab.CR PO SCH (07:10)
[2023-05-04] MEDS: Albuterol 0.083% 2.5 MG/3 ML Neb Soln NEB PRN ×2 (07:10→12:37)
[2023-05-04] MEDS: Polyethylene Glycol 3350 Powder 17 GM Packet PO SCH (09:30)
[2023-05-04] MEDS: Aspirin 81 MG Tab.EC PO SCH (09:30)
[2023-05-04] MEDS: Losartan 50 MG Tab PO SCH (09:30)
[2023-05-04] MEDS: Sertraline 25 MG Tab PO SCH (09:31)
[2023-05-04] MEDS: Sennosides 8.6 MG Tab PO SCH (09:31)
[2023-05-04] MEDS: Memantine 5 MG Tab PO SCH ×2 (09:31→21:30)
[2023-05-04] MEDS: Enoxaparin 30 MG/0.3 ML Syringe SUBCUT SCH (09:37)
[2023-05-04] MEDS: Diltiazem 100 MG in Sodium Chloride 0.9% 100 ML IV SCH (11:30)
[2023-05-04] MEDS ORDERED: Furosemide 40 MG/4 ML VIAL IVPUSH ONE (14:00)
[2023-05-04] MEDS: Azithromycin 500 MG in Sodium Chloride 0.9% 250 ML IV SCH (18:22)
[2023-05-04] MEDS: Melatonin 3 MG Tab PO SCH (21:29)
[2023-05-05] MEDS: Morphine 2 MG/ML SYRINGE IVPUSH PRN ×7 (01:24→19:24)
[2023-05-05] MEDS: Diltiazem IR 30 MG Tab PO SCH ×2 (02:15→07:12)
[2023-05-05] MEDS: Ampicillin/Sulbactam Na 1.5 GM in Sodium Chloride 0.9% 50 ML IV SCH ×4 (04:05→21:55)
[2023-05-05] MEDS: Haloperidol Lactate 5 MG/ML SDV IVPUSH PRN ×5 (04:13→20:26)
[2023-05-05 05:51] LABS: HEMATOCRIT 39.4 % (38.4-49.7); HEMOGLOBIN 12.1 g/dL (12.9-16.9); MEAN CORPUSCULAR HEMOGLOBIN 25.5 pg (31.6-35.5); MEAN CORPUSCULAR HGB CONC 30.7 g/dL (31.6-35.5); MEAN CORPUSCULAR VOLUME 83.1 fL (81.4-99.0); RED BLOOD CELL COUNT 4.74 M/uL (4.14-5.76)
[2023-05-05 06:11] LABS: A/G RATIO 0.6 (1.2-2.2); ALANINE AMINOTRANSFERASE,ALT 152 U/L (12-78); ALBUMIN 2.3 g/dL (3.4-5.0); ALKALINE PHOSPHATASE 73 U/L (46-116); ASPARTATE AMNIOTRANSFERASE,AST 60 U/L (15-37); BILIRUBIN TOTAL 1.1 mg/dL (0.2-1.0); BLOOD UREA NITROGEN,BUN 67 mg/dL (7-18); CALCIUM 8.7 mg/dL (8.5-10.1); CARBON DIOXIDE,CO2 25 mmol/L (21-32); CHLORIDE,CL 112 mmol/L (100-108); CREATININE 1.2 mg/dL (0.8-1.3); EST CRCL DRUG DOSING (CG) 45.87 mL/min; ESTIMATED GFR 58 mL/min (>60); GLUCOSE RANDOM 169 mg/dL (74-106); POTASSIUM,K 3.9 mmol/L (3.6-5.2); PROTEIN TOTAL,TP 5.9 g/dL (6.4-8.2); SODIUM,NA 147 mmol/L (140-148)
[2023-05-05 06:29] LABS: ANION GAP 13.9 mmol/L (5.0-14.0)
[2023-05-05] MEDS: Diltiazem 100 MG in Sodium Chloride 0.9% 100 ML IV SCH (06:29)
[2023-05-05] MEDS: Pantoprazole 40 MG Tab.CR PO SCH (07:12)
[2023-05-05] MEDS: Sennosides 8.6 MG Tab PO SCH (08:03)
[2023-05-05] MEDS: Aspirin 81 MG Tab.EC PO SCH (08:03)
[2023-05-05] MEDS: Polyethylene Glycol 3350 Powder 17 GM Packet PO SCH (08:03)
[2023-05-05] MEDS: Losartan 50 MG Tab PO SCH (08:03)
[2023-05-05] MEDS: Memantine 5 MG Tab PO SCH ×2 (08:03→20:59)
[2023-05-05] MEDS: Sertraline 25 MG Tab PO SCH (08:04)
[2023-05-05] MEDS: Enoxaparin 30 MG/0.3 ML Syringe SUBCUT SCH (08:09)
[2023-05-05] MEDS ORDERED: Bumetanide 1 MG/4 ML MDV IVPUSH ONE ×2 (10:30→21:00)
[2023-05-05 14:06] LABS: BODY FLUID TYPE PLEURAL FLUID; WBC BODY FLUID 800 /ul
[2023-05-05 14:07] LABS: MONONUCLEAR, BODY FLUID 83 %; POLYMORPHONUCLEAR, BODY FLUID 17 %; RBC,BODY FLUID 3450 /ul
[2023-05-05] MEDS: Azithromycin 500 MG in Sodium Chloride 0.9% 250 ML IV SCH (18:12)
[2023-05-05] MEDS: Melatonin 3 MG Tab PO SCH (20:59)
[2023-05-06] MEDS: Morphine 2 MG/ML SYRINGE IVPUSH PRN ×5 (00:17→22:46)
[2023-05-06] MEDS: Diltiazem 100 MG in Sodium Chloride 0.9% 100 ML IV SCH ×4 (01:03→20:01)
[2023-05-06 05:13] LABS: HEMATOCRIT 38.8 % (38.4-49.7); HEMOGLOBIN 11.6 g/dL (12.9-16.9); MEAN CORPUSCULAR HEMOGLOBIN 24.8 pg (31.6-35.5); MEAN CORPUSCULAR HGB CONC 29.9 g/dL (31.6-35.5); MEAN CORPUSCULAR VOLUME 83.1 fL (81.4-99.0); RED BLOOD CELL COUNT 4.67 M/uL (4.14-5.76); WHITE BLOOD CELL COUNT,WBC 15.1 K/uL (3.2-11.0)
[2023-05-06 05:14] LABS: BASE EXCESS ARTERIAL 0.9 mm/L; BICARBONATE,ARTERIAL 25.6 mmol/L (22.0-26.0); CARBOXYHEMOGLOBIN 2.8 % (0.0-1.6); METHEMOGLOBIN 0.3 %; O2 SATURATION ARTERIAL 95.7 % (95.0-98.0); OXYHEMOGLOBIN 92.7 %; PCO2 ARTERIAL 43.3 mmHg (35.0-42.0)
[2023-05-06 05:47] LABS: A/G RATIO 0.6 (1.2-2.2); ALANINE AMINOTRANSFERASE,ALT 104 U/L (12-78); ALBUMIN 2.1 g/dL (3.4-5.0); ALKALINE PHOSPHATASE 62 U/L (46-116); ANION GAP 13.8 mmol/L (5.0-14.0); ASPARTATE AMNIOTRANSFERASE,AST 37 U/L (15-37); BLOOD UREA NITROGEN,BUN 58 mg/dL (7-18); CALCIUM 8.5 mg/dL (8.5-10.1); CARBON DIOXIDE,CO2 27 mmol/L (21-32); CHLORIDE,CL 117 mmol/L (100-108); CREATININE 1.1 mg/dL (0.8-1.3); EST CRCL DRUG DOSING (CG) 50.04 mL/min; ESTIMATED GFR 64 mL/min (>60); GLUCOSE RANDOM 170 mg/dL (74-106); POTASSIUM,K 3.8 mmol/L (3.6-5.2); PROTEIN TOTAL,TP 5.5 g/dL (6.4-8.2); SODIUM,NA 154 mmol/L (140-148)
[2023-05-06] MEDS: Pantoprazole 40 MG Tab.CR PO SCH (07:22)
[2023-05-06] MEDS: Bumetanide 2.5 MG/10 ML MDV IVPUSH SCH ×2 (08:53→21:07)
[2023-05-06] MEDS: Enoxaparin 40 MG/0.4 ML Syringe SUBCUT SCH (08:57)
[2023-05-06] MEDS: Polyethylene Glycol 3350 Powder 17 GM Packet PO SCH (09:06)
[2023-05-06] MEDS: Aspirin 81 MG Tab.EC PO SCH (09:06)
[2023-05-06] MEDS: Losartan 50 MG Tab PO SCH (09:06)
[2023-05-06] MEDS: Sennosides 8.6 MG Tab PO SCH (09:07)
[2023-05-06] MEDS: Memantine 5 MG Tab PO SCH ×2 (09:07→21:06)
[2023-05-06] MEDS: Sertraline 25 MG Tab PO SCH (09:07)
[2023-05-06] MEDS ORDERED: D5 1/2 NS w/ 20 mEq/L KCl 1,000 ML IV SCH (14:45)
[2023-05-06] MEDS: Azithromycin 500 MG in Sodium Chloride 0.9% 250 ML IV SCH (18:26)
[2023-05-06] MEDS: Melatonin 3 MG Tab PO SCH (21:06)
[2023-05-06] MEDS: Albuterol/Ipratropium 3.0-0.5 MG/3 ML Neb Soln NEB PRN (22:53)
[2023-05-06] MEDS: Haloperidol Lactate 5 MG/ML SDV IVPUSH PRN (23:05)
[2023-05-07] MEDS: Diltiazem 100 MG in Sodium Chloride 0.9% 100 ML IV SCH ×2 (02:06→09:39)
[2023-05-07] MEDS: Haloperidol Lactate 5 MG/ML SDV IVPUSH PRN (05:50)
[2023-05-07 05:53] LABS: HEMATOCRIT 40.1 % (38.4-49.7); MEAN CORPUSCULAR HEMOGLOBIN 25.3 pg (31.6-35.5); MEAN CORPUSCULAR HGB CONC 29.9 g/dL (31.6-35.5); MEAN CORPUSCULAR VOLUME 84.4 fL (81.4-99.0); RED BLOOD CELL COUNT 4.75 M/uL (4.14-5.76); WHITE BLOOD CELL COUNT,WBC 19.1 K/uL (3.2-11.0)
[2023-05-07 06:05] LABS: CALCIUM 8.5 mg/dL (8.5-10.1); CREATININE 1.2 mg/dL (0.8-1.3); EST CRCL DRUG DOSING (CG) 45.87 mL/min; POTASSIUM,K 4.1 mmol/L (3.6-5.2)
[2023-05-07 06:10] LABS: ANION GAP 15.1 mmol/L (5.0-14.0)
[2023-05-07] MEDS ORDERED: Dextrose 5% in Water 1,000 ML IV SCH (06:30)
[2023-05-07] MEDS: Pantoprazole 40 MG Tab.CR PO SCH (07:33)
[2023-05-07] MEDS: Morphine 2 MG/ML SYRINGE IVPUSH PRN (09:38)
[2023-05-07] MEDS ORDERED: Morphine 2 MG/ML SYRINGE IVPUSH PRN (09:41)
[2023-05-07] MEDS: Enoxaparin 40 MG/0.4 ML Syringe SUBCUT SCH (10:01)
[2023-05-07] MEDS: Losartan 50 MG Tab PO SCH (10:13)
[2023-05-07] MEDS: Aspirin 81 MG Tab.EC PO SCH (10:14)
[2023-05-07] MEDS: Sertraline 25 MG Tab PO SCH (10:14)
[2023-05-07] MEDS: Polyethylene Glycol 3350 Powder 17 GM Packet PO SCH (10:14)
[2023-05-07] MEDS: Sennosides 8.6 MG Tab PO SCH (10:14)
[2023-05-07] MEDS: Memantine 5 MG Tab PO SCH (10:14)
[2023-05-07 14:10] VITALS: BP 118/96; PULSE 85
[2023-05-07] MEDS ORDERED: Morphine 2 MG/ML SYRINGE IVPUSH ONE (14:22)
[2023-05-07] MEDS: Morphine 2 MG/ML SYRINGE IM ONE ×2 (14:26→14:31)
== END 2023-05-07 14:47 | disposition expired | DRG 871 ==
LOC: JP.ED 03:59 → JP.MS 08:32 → UNDOADMIN 08:32 → JP.ICU 05-03 14:31
PROVIDERS: ADMIT Hospitalist; ATTEND Internal Medicine
PROC: 3E03329 Introduction of Other Anti-infective into Peripheral Vein, Percutaneous Approach (ICD-10-PCS; 2023-04-30)
PROC: 5A09357 Assistance with Respiratory Ventilation, Less than 24 Consecutive Hours, Continuous Positive Airway Pressure (ICD-10-PCS; 2023-05-04)
PROC: 0W9B3ZZ Drainage of Left Pleural Cavity, Percutaneous Approach (ICD-10-PCS; principal; 2023-05-05)
PROC: 02HV33Z Insertion of Infusion Device into Superior Vena Cava, Percutaneous Approach (ICD-10-PCS; 2023-05-05)
PROC: 5A09357 Assistance with Respiratory Ventilation, Less than 24 Consecutive Hours, Continuous Positive Airway Pressure (ICD-10-PCS; 2023-05-06)
PROC: 4A033R1 Measurement of Arterial Saturation, Peripheral, Percutaneous Approach (ICD-10-PCS; 2023-05-06)
DX: A41.9 Sepsis, unspecified organism (principal); J18.9 Pneumonia, unspecified organism; J96.01 Acute respiratory failure with hypoxia; N17.9 Acute kidney failure, unspecified; J90 Pleural effusion, not elsewhere classified; I48.92 Unspecified atrial flutter; Z66 Do not resuscitate; F02.80 Dementia in other diseases classified elsewhere, unspecified severity, without behavioral disturbance, psychotic disturbance, mood disturbance, and anxiety; F02.B0 Dementia in other diseases classified elsewhere, moderate, without behavioral disturbance, psychotic disturbance, mood disturbance, and anxiety; Z51.5 Encounter for palliative care; G30.9 Alzheimer's disease, unspecified; I95.9 Hypotension, unspecified; I48.91 Unspecified atrial fibrillation; W19.XXXA Unspecified fall, initial encounter; R74.01 Elevation of levels of liver transaminase levels; I50.9 Heart failure, unspecified; H91.90 Unspecified hearing loss, unspecified ear; I25.10 Atherosclerotic heart disease of native coronary artery without angina pectoris; I11.0 Hypertensive heart disease with heart failure; K21.9 Gastro-esophageal reflux disease without esophagitis; G89.29 Other chronic pain; F32.A Depression, unspecified; E66.9 Obesity, unspecified; Z98.49 Cataract extraction status, unspecified eye; Z98.890 Other specified postprocedural states; Z99.81 Dependence on supplemental oxygen; Z11.52 Encounter for screening for COVID-19; Z79.82 Long term (current) use of aspirin; Z68.38 Body mass index [BMI] 38.0-38.9, adult; Z79.899 Other long term (current) drug therapy
CPT/HCPCS: 0241U; 36415; 36600; 70450; 71045; 71045-26; 74176; 80048; 80053; 80202; 81001; 82550; 82803; 83605; 83735; 85025; 85027; 87040; 87070; 87077; 87102; 87205; 89050; 93005; 93010; 94640; 94660; 96361; 96365; 96375; 99223; 99233; 99238; 99285; 99285-25; A9270-GY; C1751; J0295; J0456; J0692; J0696; J0713; J1630; J1650; J1940; J2270; J3370; J3480; J3490; J7030; J7040; J7050; J7060; J7620